=== PATIENT | female | born 1995 | race Caucasian/White ===

== ENCOUNTER → 2018-04-13 11:37 | Outpatient (CLI) | payer OTHER, MEDICAID, SELFPAY ==
--- NOTE | 2018-04-13 | DI.RAD.S_ITS ---
PROCEDURE: XR ELBOW RT MIN 3V INDICATIONS: ELBOW PAIN TECHNIQUE: 3 views of the elbow were acquired. COMPARISON: None. FINDINGS: Bones: No fractures or dislocations. No suspicious bony lesions. Soft tissues: No elbow joint effusion. No suspicious soft tissue calcifications. IMPRESSION: No trauma stones, source of current tenderness is not identified. Dictated by: Harry Marino M.D. on 04/13/2018 at 14:26 Approved by: Harry Marino M.D. on 04/13/2018 at 14:27
== END ==
PROVIDERS: Family Provider Registered Nurse; PCP Registered Nurse; Visit Provider Registered Nurse
DX: M25.521 Pain in right elbow (principal)
CPT/HCPCS: 73080

== ENCOUNTER 2018-08-02 09:23 | Day surgery (SDC) | payer OTHER, MEDICAID, SELFPAY ==
[2018-07-28 11:00] VITALS: BMI 20.7
[2018-08-02] VITALS (8 sets, daily range): BP systolic 103–138; BP diastolic 71–84; PULSE 69–116; RESP 11–16; TEMP 36–36.4; O2SAT 75–100; BMI 20.7
[2018-08-02] MEDS: LACTATED RINGERS 1,000 ML 100 ML IV (09:43)
--- NOTE | 2018-08-02 10:34 | SUR.OPER ---
Lithotomy on padded OR bed, head on pillow, arms secured on padded arm boards at <90 degrees abduction. Legs secured in padded yellow fins stirrups.
--- NOTE | 2018-08-02 11:06 | PM.PREOP ---
Pre-operative Note Interval Note Pre-op Check: Yes History & Physical exam performed today by Physician Changes: No
--- NOTE | 2018-08-02 11:24 | SUR.OPER ---
Lithotomy on padded OR bed. [place] Pad Positioner under torso. Head on pillow, arms padded and tucked at sides. Legs secured in padded yellow fins stirrups.
[2018-08-02] MEDS: ACETAMINOPHEN IV 1,000 MG/100 ML VIAL 400 MG IV (11:30)
[2018-08-02] MEDS: fentaNYL 100 MCG/2 ML INJ 50 MCG IV (11:56)
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
--- NOTE | 2018-08-03 06:21 | PM.GYNOP.1 ---
Operative Date/Time/Diagnoses Date of procedure: 08/02/18 Time of procedure: 12:00 Pre-op diagnosis: Pelvic pain Post-op diagnosis: same Procedure: Procedures Operation Date: 08/02/18 11:00 Actual Procedures Side Surgeon p Laparoscopy w/Poss Fulguration Endometriosis & Poss lysis of adhesions Milagros Smith MD Indications: Persistent pelvic pain Surgeon: Milagros Smith Anesthesia Type: General Operative Notes Findings: 6 week size anteverted uterus Normal tubes and ovaries Normal appendix, gallbladder, and liver Significant pelvic congestion Closure Type: primary Specimen(s): none Estimated blood loss (mL): 10 Blood products transfused: none Procedure in detail: After informed consent was obtained, the patient was taken to the operating room where she was placed in the dorsal supine position. After adequate general endotracheal anesthesia was achieved, she was placed in the dorsal lithotomy position, and prepped and draped in the usual sterile fashion. A time-out was performed. A bivalve speculum was placed into the vagina and the anterior lip of the cervix grasped with a single-tooth tenaculum. The cervical os was sequentially dilated until the Zumi uterine manipulator could pass easily into the endometrial cavity. The single-tooth tenaculum was removed from the anterior lip of the cervix. The bivalve speculum was removed from the vagina. Attention was then turned to the abdomen where 6 cc of 0.5% Marcaine with epinephrine were injected in the umbilical fold. A 5 mm incision was made. The Veress needle was placed into the peritoneal cavity, and its placement confirmed by aspiration and drop test. The abdominal cavity was insufflated with 2.8 L of CO2. The Veress needle was removed. A 5 mm trocar was placed without difficulty. A 2nd trocar was placed to the left of midline after 6 cc of 0.5% Marcaine with epinephrine were injected and a 5 mm incision was made. This was placed under direct visualization. The probe was placed through the lateral trocar and the tubes and ovaries were identified and were normal. The uterus was lifted out of the pelvis. There was significant pelvic congestion especially posteriorly and in both adnexa. The liver, gallbladder, and appendix were examined and were found to be normal. The tubes and ovaries were normal as well. The only significant finding was pelvic congestion. The instruments were removed from the abdomen. The CO2 was allowed to escape. The incisions were closed with 4-O undyed vicryl in a subcuticular fashion. Steri-Strips, 2 x 2, and op sites were placed. The Zumi uterine manipulator was removed from the uterus. Sponge, lap, and instrument counts were correct x2. Patient tolerated the procedure well, and was taken to PACU in stable condition. Complications: none Post-operative Condition: stable Disposition: PACU Plan for aftercare: Home after recovery
== END 2018-08-02 12:53 | disposition home or self-care (01) ==
PROVIDERS: Family Provider Registered Nurse; PCP Registered Nurse; Visit Provider Obstetrics & Gynecology
PROC: 0U5B4ZZ Destruction of Endometrium, Percutaneous Endoscopic Approach (ICD-10-PCS; CPT 58662; principal; 2018-08-02 11:00)
DX: N94.89 Other specified conditions associated with female genital organs and menstrual cycle (principal); N94.6 Dysmenorrhea, unspecified
CPT/HCPCS: 49320; J0131; J1100; J1885; J2250; J2405; J2704; J3010

== ENCOUNTER → 2018-12-28 08:20 | Outpatient (CLI) | payer OTHER, MEDICAID, SELFPAY ==
--- NOTE | 2018-12-28 | DI.US.S_ITS ---
PROCEDURE: US PELVIC COMPLETE INDICATIONS: PELVIC PAIN IN FEMALE TECHNIQUE: Real-time scanning was performed of the pelvic organs, with image documentation. Additional endovaginal scanning was necessary due to incomplete visualization of the adnexal and endometrial structures by transabdominal scanning. COMPARISON: None. FINDINGS: Transabdominal scanning: Limited scanning through the kidneys shows no hydronephrosis. No pathologic free abdominal or pelvic fluid. Endovaginal scanning: Uterus: Uterus is normal in size at 8.2 x 3.8 x 5 point cm. The endometrium measures 4 mm in combined thickness. An intrauterine device is identified within the endometrial cavity and appears appropriately positioned. Ovaries: Unremarkable sonographic appearance of the bilateral ovaries without suspicious mass lesions. Right ovary measures 4.0 x 2.1 x 1.8 cm. Left ovary measures 4.0 x 1.8 x 2.7 cm. IMPRESSION: 1. Unremarkable sonographic evaluation of the pelvis without acute abnormalities. 2. Intrauterine device identified within the endometrial cavity with appropriate positioning. Dictated by: Maco Regan M.D. on 12/28/2018 at 17:40 Approved by: Maco Regan M.D. on 12/28/2018 at 17:43
== END ==
PROVIDERS: Family Provider Registered Nurse; PCP Registered Nurse; Visit Provider Obstetrics & Gynecology
DX: R10.2 Pelvic and perineal pain (principal); Z97.5 Presence of (intrauterine) contraceptive device
CPT/HCPCS: 76830; 76856

== ENCOUNTER 2019-03-25 08:19 | Emergency (ER) | payer OTHER, SELFPAY ==
[2019-03-25 08:23] VITALS: BP 130/85; PULSE 82; RESP 16; TEMP 36.8; O2SAT 100
--- NOTE | 2019-03-25 08:28 | DI.RAD.S_ITS ---
PROCEDURE: XR FOOT LT MIN 3V INDICATIONS: foot injury TECHNIQUE: 3 views of the foot were acquired. COMPARISON: None. FINDINGS: Bones: No fractures or dislocations. No suspicious bony lesions. Soft tissues: No tibiotalar joint effusion. Achilles tendon appears normal. IMPRESSION: No fracture. No osseous lesion. If symptoms and/or clinical suspicion for pathology persists, further assessment with repeat radiographs (7-10 days) or advanced imaging (e.g. CT, MRI or bone scan) may be helpful. Dictated by: Laila Solitario MD, PhD on 03/25/2019 at 8:53 Approved by: Laila Solitario MD, PhD on 03/25/2019 at 8:54
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
[2019-03-25] MEDS: IBUPROFEN 400 MG TABLET 800 MG PO (09:08)
[2019-03-25 09:54] VITALS: BP 104/73; PULSE 76; RESP 16; O2SAT 100
== END 2019-03-25 09:42 | disposition home or self-care (01) ==
PROVIDERS: Emergency Provider Emergency Medicine; Family Provider Registered Nurse; PCP Registered Nurse
DX: S90.32XA Contusion of left foot, initial encounter (principal); V00.818A Other accident with wheelchair (powered), initial encounter; Y99.0 Civilian activity done for income or pay
CPT/HCPCS: 73630; 99282; 99283

== ENCOUNTER → 2019-03-28 07:39 | Outpatient (CLI) | payer OTHER, SELFPAY ==
--- NOTE | 2019-03-28 | DI.MRI.S_ITS ---
PROCEDURE: MR KNEE RT WO CON INDICATIONS: Lateral right knee pain post fall TECHNIQUE: Noncontrast sagittal PD fast spin echo and T2 fast spin echo with fat saturation, sagittal 3-D FLASH with fat saturation; coronal T1 spin echo and PD fast spin echo with fat saturation, and axial PD fast spin echo with fat saturation through the knee. COMPARISON: None. FINDINGS: Image quality: Excellent. Menisci: The medial and lateral menisci demonstrate normal morphology and internal signal. The meniscal root ligaments appear intact. Cruciate ligaments: The anterior and posterior cruciate ligaments appear intact. Medial structures: The medial collateral ligament appears intact. The posterior oblique ligament, semimembranosus tendon insertions, oblique popliteal ligament, and meniscocapsular junction appear intact. Visualized portions of the pes anserinus tendons appear normal. No abnormal bursal fluid. Lateral structures: The lateral collateral ligament, long and short heads of the biceps femoris tendon appear intact. The popliteus tendon appears normal; the popliteofibular ligament appears intact. The posterosuperior and anteroinferior popliteomeniscal fascicles appear intact. The arcuate and fabellofibular ligaments appear intact, on either side of the lateral inferior geniculate artery. Iliotibial band appears normal. Anterior structures: The quadriceps and patellar tendons appear intact. Patellar alignment is normal. No femoral trochlear dysplasia or ventral trochlear prominence. No edema in the infrapatellar fat pad. Bones and cartilage: No bone marrow contusions or fractures. The cartilage of the medial and lateral femorotibial compartments, as well as the patellofemoral compartment, appears normal in thickness. Joint space: There is physiologic knee joint fluid. No Garcia's cyst. Normal appearing synovial plicae are incidentally noted. IMPRESSION: Unremarkable MR examination of right knee. No evidence of internal derangement. Dictated by: Temo Rodriguez M.D. on 03/28/2019 at 9:16 Approved by: Temo Rodriguez M.D. on 03/28/2019 at 9:19
== END ==
PROVIDERS: Family Provider Registered Nurse; PCP Registered Nurse; Visit Provider Registered Nurse
DX: M25.561 Pain in right knee (principal)
CPT/HCPCS: 73721

== ENCOUNTER → 2019-04-05 16:05 | Outpatient (CLI) | payer OTHER, SELFPAY ==
--- NOTE | 2019-04-05 | DI.RAD.S_ITS ---
PROCEDURE: XR FOOT LT MIN 3V INDICATIONS: PAIN IN LEFT FOOT TECHNIQUE: 3 views of the foot were acquired. COMPARISON: [facility], CR, XR FOOT LT MIN 3V, 03/25/2019, 8:40. FINDINGS: Bones: No fractures or dislocations. No suspicious bony lesions. Soft tissues: No tibiotalar joint effusion. Achilles tendon appears normal. IMPRESSION: No fracture. If the patient's symptoms do not improve recommend followup radiographs in 10 days to assess for healing sclerosis/occult injury. Dictated by: Adrian Gabriel M.D. on 04/05/2019 at 17:21 Approved by: Adrian Gabriel M.D. on 04/05/2019 at 17:22
--- NOTE | 2019-04-05 | DI.RAD.S_ITS ---
PROCEDURE: XR ANKLE LT MIN 3V INDICATIONS: PAIN IN LEFT ANKLE TECHNIQUE: 3 views of the ankle were acquired. COMPARISON: None. FINDINGS: Bones: No fractures or dislocations. Ankle mortise is normally aligned. No suspicious bony lesions. Soft tissues: No tibiotalar joint effusion. Achilles tendon appears normal. IMPRESSION: No fracture. If the patient's symptoms do not improve recommend followup radiographs in 10 days to assess for healing sclerosis/occult injury. Dictated by: Adrian Gabriel M.D. on 04/05/2019 at 17:22 Approved by: Adrian Gabriel M.D. on 04/05/2019 at 17:23
== END ==
PROVIDERS: Family Provider Registered Nurse; PCP Registered Nurse; Visit Provider Nurse Practitioner Family
DX: M25.572 Pain in left ankle and joints of left foot (principal); S99.912A Unspecified injury of left ankle, initial encounter
CPT/HCPCS: 73610; 73630

== ENCOUNTER 2019-06-23 08:15 | Outpatient (RCR) | payer OTHER, SELFPAY ==
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
--- NOTE | 2019-05-19 09:09 | PT.OTN ---
Current Diagnoses Pain in left foot (05/19/19) Difficulty in walking, not elsewhere classified (05/19/19) Weakness (05/19/19) Contusion of left foot, initial encounter (05/19/19) Unspecified injury of left ankle, subsequent encounter (05/19/19) Physical Therapy Treatment Note PT-OP-A Visit Information Start: 05/16/19 19:02 Freq: Status: Active Protocol: Document 05/19/19 07:38 [facility] (Rec: 05/19/19 09:09 [facility] [id number]) Out-Patient Physical Therapy Visit Information Visit Information Visit Type Treatment Note Visit Start Time 07:32 Visit Stop Time 08:12 Total Visit Minutes 40 PT-OP-B Current Condition Start: 05/16/19 19:02 Freq: Status: Active Protocol: Document 05/17/19 07:26 [facility] (Rec: 05/17/19 09:03 [facility] [id number]) Current Condition History of Current Condition Onset Date about 6 weeks ago Current Complaints L lat ankle and foot History of Current Condition Pt was sitting in pt's chair and had her foot back and accidently ran over it. Pt reports les pain in the foot and toes. Bruising was present at first but all Xrays showed no breaks. 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 Notes she was on light duty for about 1 week , but has returned to the floor for 2 weeks and it hurts a lot more. Reports by mid shift, she is limping whereas when on light duty she wasn't limping at all. Pt reports she used to run 30-45 min 5 days a week and lifting and workouts w/human resources trainer for 5 days a week. Now she is not doing any legs or cardio at the gym. Pt reports she has twin 4 year olds. She wears an ELLEN wrap daily and tried to go without it yesterday and that inc pain. Pt reports LBP with LLE numbness into post leg and bottom of foot. Pt Prior Treatments and Tests Xrays-no breaks, instructed to keep wrapped and ice Treatment Goals Patient/Caregiver Goals return to working out, being able to work without pain, be able to do all activities with kids PT-OP-C Subjective Start: 05/16/19 19:02 Freq: Status: Active Protocol: Document 05/19/19 07:38 [facility] (Rec: 05/19/19 09:09 [facility] [id number]) OP-PT Subjective Patient Comments Patient Comments Complinace with HEP. No issues with it PT-OP-D Balance Start: 05/16/19 19:02 Freq: Status: Active Protocol: Document 05/17/19 07:26 [facility] (Rec: 05/17/19 09:03 [facility] [id number]) Balance Tests Single Limb Standing Single Limb- Right >30 sec EO, EC 13 sec Single Limb- Left 1 sec EC Tandem Tandem Standing >30 sec B PT-OP-F Manual Assessment Start: 05/16/19 19:02 Freq: Status: Active Protocol: Document 05/17/19 07:26 [facility] (Rec: 05/17/19 09:03 [facility] [id number]) Manual Assessments Soft Tissue Assessment Soft Tissue Mobility Assessment tenderness to palpation in calf, peroneals, ATFL, PTFL, distal fibula, 5th MT Joint Mobility Assessment Joint Mobility Assessment compensated supinated foot position, rearfoot valgus & forefoot valgus PT-OP-G Mobility & Gait Start: 05/16/19 19:02 Freq: Status: Active Protocol: Document 05/17/19 07:26 [facility] (Rec: 05/17/19 09:03 [facility] [id number]) OP Gait Assessment Comments Gait Comments Dec push off and wt acceptance to LLE with dec ankle movement throughout gait PT-OP-J Posture/Palpation/Skin Start: 05/16/19 19:02 Freq: Status: Active Protocol: Document 05/17/19 07:26 [facility] (Rec: 05/17/19 09:03 [facility] [id number]) Posture Evaluation [facility] Postural Classification System Lumbar Protective Mechanism Left AP 0 Lumbar Protective Mechanism Right AP 0 Lumbar Protective Mechanism Left PA 0 Lumbar Protective Mechanism Right PA 0 PT-OP-K Range of Motion Start: 05/16/19 19:02 Freq: Status: Active Protocol: Document 05/17/19 07:26 [facility] (Rec: 05/17/19 09:03 [facility] [id number]) Ankle and Foot Goniometric Range of Motion Ankle and Foot Right Active Ankle/Foot ROM WFL Yes Dorsiflexion with Knee Flexed 12 Dorsiflexion with Knee Extended 4 Left Active Dorsiflexion with Knee Flexed 0 Dorsiflexion with Knee Extended 8 Plantarflexion 40 Inversion 20 Eversion 14 Ankle and Foot ROM Limitations Comments lacking 8 deg to neutral L PT-OP-L Special Tests Start: 05/16/19 19:02 Freq: Status: Active Protocol: Document 05/17/19 07:26 [facility] (Rec: 05/17/19 09:03 [facility] [id number]) Special Tests Foot/Ankle Special Tests Talor Tilt Test Results positive pain L Anterior Draw Test Results positive L PT-OP-M Strength Start: 05/16/19 19:02 Freq: Status: Active Protocol: Document 05/17/19 07:26 [facility] (Rec: 05/17/19 09:03 [facility] [id number]) Hip Strength Hip Manual Muscle Testing Left Flexion (L2) 4- Good- Extension (S1) 4- Good- Abduction 3+ Fair+ External Rotation 4 Good Internal Rotation 4 Good Right Flexion (L2) 4 Good Extension (S1) 4+ Good+ Abduction 4+ Good+ External Rotation 4+ Good+ Internal Rotation 4 Good Knee Strength Knee Manual Muscle Testing Right Flexion (S2) 4+ Good+ Extension (L3) 5 Normal Left Flexion (S2) 4- Good- Extension (L3) 4+ Good+ Ankle/Foot Strength Ankle and Foot Manual Muscle Testing Right Dorsiflexion (L4) 5 Normal Plantarflexion (S1) 5 Normal Inversion 5 Normal Eversion (S1) 5 Normal Left Dorsiflexion (L4) 3+ Fair+ Plantarflexion (S1) 3 Fair Inversion 3 Fair Eversion (S1) 3+ Fair+ PT-OP-Q Treatments Start: 05/16/19 19:02 Freq: Status: Active Protocol: Document 05/19/19 07:38 [facility] (Rec: 05/19/19 09:09 [facility] [id number]) Cardio Equipment Recumbent Bicycle Duration (Minutes) 6 Resistance 3 Seat Position 3 Gym Equipment Cable Column (Body Solid) Hip Adduction Resistance 4 Reps/Time 2x12 Hip Abduction Resistance 4 Reps/Time 2x12 Shuttle Recovery Bilateral Squats Resistance 50# Shuttle Recovery Platform Stable Reps/Time 2x10 Manual Therapy Treatment Soft Tissue Mobilization gastroc Body Location med and lat Mobilization Type Rolling Intensity/Depth Moderate peroneals Body Location L Mobilization Type Rolling Intensity/Depth Moderate tib ant Body Location L Mobilization Type Rolling Joint Mobilizations calcaneus Joint L Direction distraction PT-OP-T Assessment and Plan Start: 05/16/19 19:02 Freq: Status: Active Protocol: Document 05/19/19 07:38 [facility] (Rec: 05/19/19 09:09 [facility] [id number]) Physical Therapy Assessment Goals activity Short Term Goal (STG) Pt will be able to return to work on full duty without increased pain. STG Duration 06/24/19 Speedboat Driver Goal (LTG) Pt will be able to return to working out and running without increased pain. LTG Duration 07/17/19 balance Speedboat Driver Goal (LTG) Pt will be able to stand on LLE for 30 sec to show improved balance and stability . LTG Duration 07/17/19 ROM Short Term Goal (STG) Pt will have full AROM of L ankle in order to allow full movements needed for typical ADLs and gait. STG Duration 06/16/19 Retirement Goal (LTG) Pt will be able to ambulate with good motion of ankle in order to have gait without significant deviations. LTG Duration 07/17/19 strength Short Term Goal (STG) Pt will be indep with HEP STG Duration 06/16/19 Retirement Goal (LTG) Pt will have 5/5 in BLE & 4/5 LPM in order to allow her to complete her typical duties like pushing and pulling and lifting at her job without pain. LTG Duration 07/17/19 Assessment Summary Assessment Discussed getting supportive brace for work and daily stability d/t pt feeling unstable. Pt was able to tolerate all gym equipment without c/o pain. Physical Therapy Plan Frequency and Duration Frequency of Treatment 2x/Week Duration of Treatment 2 months Plan of Care Start Date 05/17/19 Plan of Care End Date 07/17/19 Next Visit Focus/Plan Next Note Type Treatment Note Next Visit Plan discuss aquatic, cont to work on gentle joint mobs & soft tissue work, possible laser treatment, work on overall LE strengthening
--- NOTE | 2019-05-26 15:17 | PT.OTN ---
Current Diagnoses Pain in left foot (05/26/19) Difficulty in walking, not elsewhere classified (05/26/19) Weakness (05/26/19) Contusion of left foot, initial encounter (05/26/19) Unspecified injury of left ankle, subsequent encounter (05/26/19) Physical Therapy Treatment Note PT-OP-A Visit Information Start: 05/16/19 19:02 Freq: Status: Active Protocol: Document 05/26/19 14:36 [facility] (Rec: 05/26/19 15:17 [facility] [id number]) Out-Patient Physical Therapy Visit Information Visit Information Visit Type Treatment Note Visit Start Time 16:32 Visit Stop Time 17:12 Total Visit Minutes 40 Visit Number 3 Number of MUSIC LIBRARY ASSISTANT Visits 0 PT-OP-B Current Condition Start: 05/16/19 19:02 Freq: Status: Active Protocol: Document 05/17/19 07:26 [facility] (Rec: 05/17/19 09:03 [facility] [id number]) Current Condition History of Current Condition Onset Date about 6 weeks ago Current Complaints L lat ankle and foot History of Current Condition Pt was sitting in pt's chair and had her foot back and accidently ran over it. Pt reports les pain in the foot and toes. Bruising was present at first but all Xrays showed no breaks. 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 Notes she was on light duty for about 1 week , but has returned to the floor for 2 weeks and it hurts a lot more. Reports by mid shift, she is limping whereas when on light duty she wasn't limping at all. Pt reports she used to run 30-45 min 5 days a week and lifting and workouts w/household personal assistant for 5 days a week. Now she is not doing any legs or cardio at the gym. Pt reports she has twin 4 year olds. She wears an ELLEN wrap daily and tried to go without it yesterday and that inc pain. Pt reports LBP with LLE numbness into post leg and bottom of foot. Pt Prior Treatments and Tests Xrays-no breaks, instructed to keep wrapped and ice Treatment Goals Patient/Caregiver Goals return to working out, being able to work without pain, be able to do all activities with kids PT-OP-C Subjective Start: 05/16/19 19:02 Freq: Status: Active Protocol: Document 05/26/19 14:36 [facility] (Rec: 05/26/19 15:17 [facility] [id number]) OP-PT Subjective Patient Comments Patient Comments Pt reports swelling in ankle after last session. She got a stabilization brace but wants to make sure she is using it well. Tues appt was missed d/t son having to go to doctors for migrane. PT-OP-D Balance Start: 05/16/19 19:02 Freq: Status: Active Protocol: Document 05/17/19 07:26 [facility] (Rec: 05/17/19 09:03 [facility] [id number]) Balance Tests Single Limb Standing Single Limb- Right >30 sec EO, EC 13 sec Single Limb- Left 1 sec EC Tandem Tandem Standing >30 sec B PT-OP-F Manual Assessment Start: 05/16/19 19:02 Freq: Status: Active Protocol: Document 05/17/19 07:26 [facility] (Rec: 05/17/19 09:03 [facility] [id number]) Manual Assessments Soft Tissue Assessment Soft Tissue Mobility Assessment tenderness to palpation in calf, peroneals, ATFL, PTFL, distal fibula, 5th MT Joint Mobility Assessment Joint Mobility Assessment compensated supinated foot position, rearfoot valgus & forefoot valgus PT-OP-G Mobility & Gait Start: 05/16/19 19:02 Freq: Status: Active Protocol: Document 05/17/19 07:26 [facility] (Rec: 05/17/19 09:03 [facility] [id number]) OP Gait Assessment Comments Gait Comments Dec push off and wt acceptance to LLE with dec ankle movement throughout gait PT-OP-J Posture/Palpation/Skin Start: 05/16/19 19:02 Freq: Status: Active Protocol: Document 05/17/19 07:26 [facility] (Rec: 05/17/19 09:03 [facility] [id number]) Posture Evaluation Fam Postural Classification System Lumbar Protective Mechanism Left AP 0 Lumbar Protective Mechanism Right AP 0 Lumbar Protective Mechanism Left PA 0 Lumbar Protective Mechanism Right PA 0 PT-OP-K Range of Motion Start: 05/16/19 19:02 Freq: Status: Active Protocol: Document 05/17/19 07:26 [facility] (Rec: 05/17/19 09:03 [facility] [id number]) Ankle and Foot Goniometric Range of Motion Ankle and Foot Right Active Ankle/Foot ROM WFL Yes Dorsiflexion with Knee Flexed 12 Dorsiflexion with Knee Extended 4 Left Active Dorsiflexion with Knee Flexed 0 Dorsiflexion with Knee Extended 8 Plantarflexion 40 Inversion 20 Eversion 14 Ankle and Foot ROM Limitations Comments lacking 8 deg to neutral L PT-OP-L Special Tests Start: 05/16/19 19:02 Freq: Status: Active Protocol: Document 05/17/19 07:26 [facility] (Rec: 05/17/19 09:03 [facility] [id number]) Special Tests Foot/Ankle Special Tests Talor Tilt Test Results positive pain L Anterior Draw Test Results positive L PT-OP-M Strength Start: 05/16/19 19:02 Freq: Status: Active Protocol: Document 05/17/19 07:26 [facility] (Rec: 05/17/19 09:03 [facility] [id number]) Hip Strength Hip Manual Muscle Testing Left Flexion (L2) 4- Good- Extension (S1) 4- Good- Abduction 3+ Fair+ External Rotation 4 Good Internal Rotation 4 Good Right Flexion (L2) 4 Good Extension (S1) 4+ Good+ Abduction 4+ Good+ External Rotation 4+ Good+ Internal Rotation 4 Good Knee Strength Knee Manual Muscle Testing Right Flexion (S2) 4+ Good+ Extension (L3) 5 Normal Left Flexion (S2) 4- Good- Extension (L3) 4+ Good+ Ankle/Foot Strength Ankle and Foot Manual Muscle Testing Right Dorsiflexion (L4) 5 Normal Plantarflexion (S1) 5 Normal Inversion 5 Normal Eversion (S1) 5 Normal Left Dorsiflexion (L4) 3+ Fair+ Plantarflexion (S1) 3 Fair Inversion 3 Fair Eversion (S1) 3+ Fair+ PT-OP-Q Treatments Start: 05/16/19 19:02 Freq: Status: Active Protocol: Document 05/26/19 14:36 [facility] (Rec: 05/26/19 15:17 [facility] [id number]) Cardio Equipment Bicycle (Upright) Duration (Minutes) 5 Resistance 3 Seat Position 4 Therapeutic Exercises Sitting Exercises PF Sitting Exercise Name long sit Side left Equipment Used L1 Reps/Minutes 15 AROM Sitting Exercise Name BAPs DF/PF, inversion/eversion Reps/Minutes 10 ea Manual Therapy Treatment Soft Tissue Mobilization gastroc Body Location med and lat & into achilles tendon Mobilization Type Rolling Intensity/Depth Moderate peroneals Body Location L Mobilization Type Rolling Intensity/Depth Moderate Joint Mobilizations TF jt Joint distal Direction AP fib Grade II talus Joint L Direction distraction Grade II calcaneus Joint L Direction distraction Grade II Self-Care/Home Management Treatment Education Other Education brace use and how to put on PT-OP-T Assessment and Plan Start: 05/16/19 19:02 Freq: Status: Active Protocol: Document 05/26/19 14:36 [facility] (Rec: 05/26/19 15:17 [facility] [id number]) Physical Therapy Assessment Goals activity Short Term Goal (STG) Pt will be able to return to work on full duty without increased pain. STG Duration 06/24/19 Prison Goal (LTG) Pt will be able to return to working out and running without increased pain. LTG Duration 07/17/19 balance Prison Goal (LTG) Pt will be able to stand on LLE for 30 sec to show improved balance and stability . LTG Duration 07/17/19 ROM Short Term Goal (STG) Pt will have full AROM of L ankle in order to allow full movements needed for typical ADLs and gait. STG Duration 06/16/19 Prison Goal (LTG) Pt will be able to ambulate with good motion of ankle in order to have gait without significant deviations. LTG Duration 07/17/19 strength Short Term Goal (STG) Pt will be indep with HEP STG Duration 06/16/19 Devulcanizer Tender Goal (LTG) Pt will have 5/5 in BLE & 4/5 LPM in order to allow her to complete her typical duties like pushing and pulling and lifting at her job without pain. LTG Duration 07/17/19 Assessment Summary Assessment Pt is gradually increasing in ROM, but still has pain with end range DF, inversion & eversion. She was able to start gentle PF strengthening without inc pain. All manual treatment done without inc pain. Physical Therapy Plan Frequency and Duration Frequency of Treatment 2x/Week Duration of Treatment 2 months Plan of Care Start Date 05/17/19 Plan of Care End Date 07/17/19 Next Visit Focus/Plan Next Note Type Treatment Note Next Visit Plan cont to work on gentle joint mobs & soft tissue work, possible laser treatment, work on overall LE strengthening
--- NOTE | 2019-05-31 08:56 | PT.OTN ---
Current Diagnoses Pain in left foot (05/31/19) Difficulty in walking, not elsewhere classified (05/31/19) Weakness (05/31/19) Contusion of left foot, initial encounter (05/31/19) Unspecified injury of left ankle, subsequent encounter (05/31/19) Physical Therapy Treatment Note PT-OP-A Visit Information Start: 05/16/19 19:02 Freq: Status: Active Protocol: Document 05/31/19 08:17 [facility] (Rec: 05/31/19 08:56 [facility] [id number]) Out-Patient Physical Therapy Visit Information Visit Information Visit Type Treatment Note Visit Start Time 08:15 Visit Stop Time 08:56 Total Visit Minutes 41 Visit Number 12/03 Number of PHARMACY BENEFITS COORDINATOR Visits 0 PT-OP-B Current Condition Start: 05/16/19 19:02 Freq: Status: Active Protocol: Document 05/17/19 07:26 [facility] (Rec: 05/17/19 09:03 [facility] [id number]) Current Condition History of Current Condition Onset Date about 6 weeks ago Current Complaints L lat ankle and foot History of Current Condition Pt was sitting in pt's chair and had her foot back and accidently ran over it. Pt reports les pain in the foot and toes. Bruising was present at first but all Xrays showed no breaks. 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 Notes she was on light duty for about 1 week , but has returned to the floor for 2 weeks and it hurts a lot more. Reports by mid shift, she is limping whereas when on light duty she wasn't limping at all. Pt reports she used to run 30-45 min 5 days a week and lifting and workouts w/personal development mentor for 5 days a week. Now she is not doing any legs or cardio at the gym. Pt reports she has twin 4 year olds. She wears an ELLEN wrap daily and tried to go without it yesterday and that inc pain. Pt reports LBP with LLE numbness into post leg and bottom of foot. Pt Prior Treatments and Tests Xrays-no breaks, instructed to keep wrapped and ice Treatment Goals Patient/Caregiver Goals return to working out, being able to work without pain, be able to do all activities with kids PT-OP-C Subjective Start: 05/16/19 19:02 Freq: Status: Active Protocol: Document 05/31/19 08:17 [facility] (Rec: 05/31/19 08:56 [facility] [id number]) OP-PT Subjective Patient Comments Patient Comments Pt reports she is improving with her ROM. She sees her MD tomorrow. She was able to do the leg press at the gym. Patient Reported Progress Improving PT-OP-D Balance Start: 05/16/19 19:02 Freq: Status: Active Protocol: Document 05/17/19 07:26 [facility] (Rec: 05/17/19 09:03 [facility] [id number]) Balance Tests Single Limb Standing Single Limb- Right >30 sec EO, EC 13 sec Single Limb- Left 1 sec EC Tandem Tandem Standing >30 sec B PT-OP-F Manual Assessment Start: 05/16/19 19:02 Freq: Status: Active Protocol: Document 05/17/19 07:26 [facility] (Rec: 05/17/19 09:03 [facility] [id number]) Manual Assessments Soft Tissue Assessment Soft Tissue Mobility Assessment tenderness to palpation in calf, peroneals, ATFL, PTFL, distal fibula, 5th MT Joint Mobility Assessment Joint Mobility Assessment compensated supinated foot position, rearfoot valgus & forefoot valgus PT-OP-G Mobility & Gait Start: 05/16/19 19:02 Freq: Status: Active Protocol: Document 05/17/19 07:26 [facility] (Rec: 05/17/19 09:03 [facility] [id number]) OP Gait Assessment Comments Gait Comments Dec push off and wt acceptance to LLE with dec ankle movement throughout gait PT-OP-J Posture/Palpation/Skin Start: 05/16/19 19:02 Freq: Status: Active Protocol: Document 05/17/19 07:26 [facility] (Rec: 05/17/19 09:03 [facility] [id number]) Posture Evaluation Fam Postural Classification System Lumbar Protective Mechanism Left AP 0 Lumbar Protective Mechanism Right AP 0 Lumbar Protective Mechanism Left PA 0 Lumbar Protective Mechanism Right PA 0 PT-OP-K Range of Motion Start: 05/16/19 19:02 Freq: Status: Active Protocol: Document 05/17/19 07:26 [facility] (Rec: 05/17/19 09:03 [facility] [id number]) Ankle and Foot Goniometric Range of Motion Ankle and Foot Right Active Ankle/Foot ROM WFL Yes Dorsiflexion with Knee Flexed 12 Dorsiflexion with Knee Extended 4 Left Active Dorsiflexion with Knee Flexed 0 Dorsiflexion with Knee Extended 8 Plantarflexion 40 Inversion 20 Eversion 14 Ankle and Foot ROM Limitations Comments lacking 8 deg to neutral L PT-OP-L Special Tests Start: 05/16/19 19:02 Freq: Status: Active Protocol: Document 05/17/19 07:26 [facility] (Rec: 05/17/19 09:03 [facility] [id number]) Special Tests Foot/Ankle Special Tests Talor Tilt Test Results positive pain L Anterior Draw Test Results positive L PT-OP-M Strength Start: 05/16/19 19:02 Freq: Status: Active Protocol: Document 05/17/19 07:26 [facility] (Rec: 05/17/19 09:03 [facility] [id number]) Hip Strength Hip Manual Muscle Testing Left Flexion (L2) 4- Good- Extension (S1) 4- Good- Abduction 3+ Fair+ External Rotation 4 Good Internal Rotation 4 Good Right Flexion (L2) 4 Good Extension (S1) 4+ Good+ Abduction 4+ Good+ External Rotation 4+ Good+ Internal Rotation 4 Good Knee Strength Knee Manual Muscle Testing Right Flexion (S2) 4+ Good+ Extension (L3) 5 Normal Left Flexion (S2) 4- Good- Extension (L3) 4+ Good+ Ankle/Foot Strength Ankle and Foot Manual Muscle Testing Right Dorsiflexion (L4) 5 Normal Plantarflexion (S1) 5 Normal Inversion 5 Normal Eversion (S1) 5 Normal Left Dorsiflexion (L4) 3+ Fair+ Plantarflexion (S1) 3 Fair Inversion 3 Fair Eversion (S1) 3+ Fair+ PT-OP-Q Treatments Start: 05/16/19 19:02 Freq: Status: Active Protocol: Document 05/31/19 08:17 [facility] (Rec: 05/31/19 08:56 [facility] [id number]) Cardio Equipment Bicycle (Upright) Duration (Minutes) 5 Resistance 3 Seat Position 4 Therapeutic Exercises Sitting Exercises eversion Sitting Exercise Name long sit Side left Equipment Used L1 Reps/Minutes 10x2 AROM Sitting Exercise Name BAPs DF/PF, inversion/eversion Reps/Minutes 10 ea Standing Exercises hip Standing Exercise Name abd, ext Side bilateral Equipment Used L1 Reps/Minutes 2x10 ea B Manual Therapy Treatment Soft Tissue Mobilization gastroc Body Location med and lat & into achilles tendon Mobilization Type Rolling Intensity/Depth Moderate peroneals Body Location L Mobilization Type Rolling Intensity/Depth Moderate Joint Mobilizations talus Joint L Direction distraction, AP Grade II calcaneus Joint L Direction distraction, lat gapping Grade II Neuro Re-Education Treatment Balance Activities tandem stance Surface firm Reps/Duration B Comments EC, then head turns PT-OP-T Assessment and Plan Start: 05/16/19 19:02 Freq: Status: Active Protocol: Document 05/31/19 08:17 [facility] (Rec: 05/31/19 08:56 [facility] [id number]) Physical Therapy Assessment Goals activity Short Term Goal (STG) Pt will be able to return to work on full duty without increased pain. STG Duration 06/24/19 Prison Goal (LTG) Pt will be able to return to working out and running without increased pain. LTG Duration 07/17/19 balance English Language Learner Tutor Goal (LTG) Pt will be able to stand on LLE for 30 sec to show improved balance and stability . LTG Duration 07/17/19 ROM Short Term Goal (STG) Pt will have full AROM of L ankle in order to allow full movements needed for typical ADLs and gait. STG Duration 06/16/19 English Language Learner Tutor Goal (LTG) Pt will be able to ambulate with good motion of ankle in order to have gait without significant deviations. LTG Duration 07/17/19 strength Short Term Goal (STG) Pt will be indep with HEP STG Duration 06/16/19 Prison Goal (LTG) Pt will have 5/5 in BLE & 4/5 LPM in order to allow her to complete her typical duties like pushing and pulling and lifting at her job without pain. LTG Duration 07/17/19 Assessment Summary Assessment Pt was able to tolerate doing standing strengthening and balance exercises today without inc in pain. She is improving with ROM but still has pain with end range inversion & DF. Physical Therapy Plan Frequency and Duration Frequency of Treatment 2x/Week Duration of Treatment 2 months Plan of Care Start Date 05/17/19 Plan of Care End Date 07/17/19 Next Visit Focus/Plan Next Note Type Treatment Note Next Visit Plan cont to work on gentle joint mobs & soft tissue work, possible laser treatment, work on overall LE strengthening
--- NOTE | 2019-06-02 09:00 | PT.OTN ---
Current Diagnoses Pain in left foot (06/02/19) Difficulty in walking, not elsewhere classified (06/02/19) Weakness (06/02/19) Contusion of left foot, initial encounter (06/02/19) Unspecified injury of left ankle, subsequent encounter (06/02/19) Physical Therapy Treatment Note PT-OP-A Visit Information Start: 05/16/19 19:02 Freq: Status: Active Protocol: Document 06/02/19 08:19 [facility] (Rec: 06/02/19 08:58 [facility] [id number]) Out-Patient Physical Therapy Visit Information Visit Information Visit Type Treatment Note Visit Start Time 08:16 Visit Stop Time 09:04 Total Visit Minutes 48 Visit Number 01/02 Number of NEWSWRITER Visits 0 PT-OP-B Current Condition Start: 05/16/19 19:02 Freq: Status: Active Protocol: Document 05/17/19 07:26 [facility] (Rec: 05/17/19 09:03 [facility] [id number]) Current Condition History of Current Condition Onset Date about 6 weeks ago Current Complaints L lat ankle and foot History of Current Condition Pt was sitting in pt's chair and had her foot back and accidently ran over it. Pt reports les pain in the foot and toes. Bruising was present at first but all Xrays showed no breaks. 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 Notes she was on light duty for about 1 week , but has returned to the floor for 2 weeks and it hurts a lot more. Reports by mid shift, she is limping whereas when on light duty she wasn't limping at all. Pt reports she used to run 30-45 min 5 days a week and lifting and workouts w/appraiser personal property for 5 days a week. Now she is not doing any legs or cardio at the gym. Pt reports she has twin 4 year olds. She wears an ELLEN wrap daily and tried to go without it yesterday and that inc pain. Pt reports LBP with LLE numbness into post leg and bottom of foot. Pt Prior Treatments and Tests Xrays-no breaks, instructed to keep wrapped and ice Treatment Goals Patient/Caregiver Goals return to working out, being able to work without pain, be able to do all activities with kids PT-OP-C Subjective Start: 05/16/19 19:02 Freq: Status: Active Protocol: Document 06/02/19 08:19 [facility] (Rec: 06/02/19 08:58 [facility] [id number]) OP-PT Subjective Patient Comments Patient Comments Pt reports she saw the MD who put her on modified duty. Notes MD ordered MRI. PT-OP-D Balance Start: 05/16/19 19:02 Freq: Status: Active Protocol: Document 05/17/19 07:26 [facility] (Rec: 05/17/19 09:03 [facility] [id number]) Balance Tests Single Limb Standing Single Limb- Right >30 sec EO, EC 13 sec Single Limb- Left 1 sec EC Tandem Tandem Standing >30 sec B PT-OP-F Manual Assessment Start: 05/16/19 19:02 Freq: Status: Active Protocol: Document 05/17/19 07:26 [facility] (Rec: 05/17/19 09:03 [facility] [id number]) Manual Assessments Soft Tissue Assessment Soft Tissue Mobility Assessment tenderness to palpation in calf, peroneals, ATFL, PTFL, distal fibula, 5th MT Joint Mobility Assessment Joint Mobility Assessment compensated supinated foot position, rearfoot valgus & forefoot valgus PT-OP-G Mobility & Gait Start: 05/16/19 19:02 Freq: Status: Active Protocol: Document 05/17/19 07:26 [facility] (Rec: 05/17/19 09:03 [facility] [id number]) OP Gait Assessment Comments Gait Comments Dec push off and wt acceptance to LLE with dec ankle movement throughout gait PT-OP-J Posture/Palpation/Skin Start: 05/16/19 19:02 Freq: Status: Active Protocol: Document 05/17/19 07:26 [facility] (Rec: 05/17/19 09:03 [facility] [id number]) Posture Evaluation [facility] Postural Classification System Lumbar Protective Mechanism Left AP 0 Lumbar Protective Mechanism Right AP 0 Lumbar Protective Mechanism Left PA 0 Lumbar Protective Mechanism Right PA 0 PT-OP-K Range of Motion Start: 05/16/19 19:02 Freq: Status: Active Protocol: Document 05/17/19 07:26 [facility] (Rec: 05/17/19 09:03 [facility] [id number]) Ankle and Foot Goniometric Range of Motion Ankle and Foot Right Active Ankle/Foot ROM WFL Yes Dorsiflexion with Knee Flexed 12 Dorsiflexion with Knee Extended 4 Left Active Dorsiflexion with Knee Flexed 0 Dorsiflexion with Knee Extended 8 Plantarflexion 40 Inversion 20 Eversion 14 Ankle and Foot ROM Limitations Comments lacking 8 deg to neutral L PT-OP-L Special Tests Start: 05/16/19 19:02 Freq: Status: Active Protocol: Document 05/17/19 07:26 [facility] (Rec: 05/17/19 09:03 [facility] [id number]) Special Tests Foot/Ankle Special Tests Talor Tilt Test Results positive pain L Anterior Draw Test Results positive L PT-OP-M Strength Start: 05/16/19 19:02 Freq: Status: Active Protocol: Document 05/17/19 07:26 [facility] (Rec: 05/17/19 09:03 [facility] [id number]) Hip Strength Hip Manual Muscle Testing Left Flexion (L2) 4- Good- Extension (S1) 4- Good- Abduction 3+ Fair+ External Rotation 4 Good Internal Rotation 4 Good Right Flexion (L2) 4 Good Extension (S1) 4+ Good+ Abduction 4+ Good+ External Rotation 4+ Good+ Internal Rotation 4 Good Knee Strength Knee Manual Muscle Testing Right Flexion (S2) 4+ Good+ Extension (L3) 5 Normal Left Flexion (S2) 4- Good- Extension (L3) 4+ Good+ Ankle/Foot Strength Ankle and Foot Manual Muscle Testing Right Dorsiflexion (L4) 5 Normal Plantarflexion (S1) 5 Normal Inversion 5 Normal Eversion (S1) 5 Normal Left Dorsiflexion (L4) 3+ Fair+ Plantarflexion (S1) 3 Fair Inversion 3 Fair Eversion (S1) 3+ Fair+ PT-OP-Q Treatments Start: 05/16/19 19:02 Freq: Status: Active Protocol: Document 06/02/19 08:19 [facility] (Rec: 06/02/19 08:58 [facility] [id number]) Cardio Equipment Bicycle (Upright) Duration (Minutes) 5 Resistance 3 Seat Position 4 Gym Equipment Shuttle Balance blue clips Details WBOS, NBOS, staggered stance Comments EO & EC; fwd & side Therapeutic Exercises Sitting Exercises eversion Sitting Exercise Name long sit inversion & eversion Side left Equipment Used L1 Reps/Minutes 15 ea PF Sitting Exercise Name long sit PF & DF Side left Equipment Used L1 Reps/Minutes 15 AROM Sitting Exercise Name wobble board DF/PF, inversion/ eversion Reps/Minutes 15 ea Standing Exercises hip Standing Exercise Name abd, ext Side bilateral Equipment Used L1 Reps/Minutes 2x10 ea B Manual Therapy Treatment Soft Tissue Mobilization gastroc Body Location med and lat & into achilles tendon Mobilization Type Rolling Intensity/Depth Moderate peroneals Body Location L Mobilization Type Rolling Intensity/Depth Moderate Manual Techniques ROM Type gentle passive stretching inversion, eversion, PF, DF PT-OP-R Modalities Start: 05/16/19 19:02 Freq: Status: Active Protocol: Document 06/02/19 08:19 [facility] (Rec: 06/02/19 08:59 [facility] [id number]) Hot Pack/Cold Pack Treatment Cold Pack Location L ankle Patient Position Hooklying Treatment Duration (minutes) 10 PT-OP-T Assessment and Plan Start: 05/16/19 19:02 Freq: Status: Active Protocol: Document 06/02/19 08:19 [facility] (Rec: 06/02/19 08:58 [facility] [id number]) Physical Therapy Assessment Goals activity Short Term Goal (STG) Pt will be able to return to work on full duty without increased pain. STG Duration 06/24/19 Factory Helper Goal (LTG) Pt will be able to return to working out and running without increased pain. LTG Duration 07/17/19 balance [facility] Goal (LTG) Pt will be able to stand on LLE for 30 sec to show improved balance and stability . LTG Duration 07/17/19 ROM Short Term Goal (STG) Pt will have full AROM of L ankle in order to allow full movements needed for typical ADLs and gait. STG Duration 06/16/19 [facility] Goal (LTG) Pt will be able to ambulate with good motion of ankle in order to have gait without significant deviations. LTG Duration 07/17/19 strength Short Term Goal (STG) Pt will be indep with HEP STG Duration 06/16/19 Factory Helper Goal (LTG) Pt will have 5/5 in BLE & 4/5 LPM in order to allow her to complete her typical duties like pushing and pulling and lifting at her job without pain. LTG Duration 07/17/19 Assessment Summary Assessment Pt did well with strengthening exercises iwth min cueing. Reported some foot pain with shuttle balance so stopped. She was able to tolerate all motions with resistance. Physical Therapy Plan Frequency and Duration Frequency of Treatment 2x/Week Duration of Treatment 2 months Plan of Care Start Date 05/17/19 Plan of Care End Date 07/17/19 Next Visit Focus/Plan Next Note Type Treatment Note Next Visit Plan cont to work on gentle joint mobs & soft tissue work, possible laser or US treatment , work on overall LE strengthening
--- NOTE | 2019-06-07 09:32 | PT.OTN ---
Current Diagnoses Pain in left foot (06/07/19) Difficulty in walking, not elsewhere classified (06/07/19) Weakness (06/07/19) Contusion of left foot, initial encounter (06/07/19) Unspecified injury of left ankle, subsequent encounter (06/07/19) Physical Therapy Treatment Note PT-OP-A Visit Information Start: 05/16/19 19:02 Freq: Status: Active Protocol: Document 06/07/19 08:34 [facility] (Rec: 06/07/19 09:32 [facility] [id number]) Out-Patient Physical Therapy Visit Information Visit Information Visit Type Treatment Note Visit Start Time 08:23 Visit Stop Time 09:01 Total Visit Minutes 38 Visit Number 02/02 Number of RECOVERY ENGINEER Visits 0 PT-OP-B Current Condition Start: 05/16/19 19:02 Freq: Status: Active Protocol: Document 05/17/19 07:26 [facility] (Rec: 05/17/19 09:03 [facility] [id number]) Current Condition History of Current Condition Onset Date about 6 weeks ago Current Complaints L lat ankle and foot History of Current Condition Pt was sitting in pt's chair and had her foot back and accidently ran over it. Pt reports les pain in the foot and toes. Bruising was present at first but all Xrays showed no breaks. 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 Notes she was on light duty for about 1 week , but has returned to the floor for 2 weeks and it hurts a lot more. Reports by mid shift, she is limping whereas when on light duty she wasn't limping at all. Pt reports she used to run 30-45 min 5 days a week and lifting and workouts w/business trainer for 5 days a week. Now she is not doing any legs or cardio at the gym. Pt reports she has twin 4 year olds. She wears an ELLEN wrap daily and tried to go without it yesterday and that inc pain. Pt reports LBP with LLE numbness into post leg and bottom of foot. Pt Prior Treatments and Tests Xrays-no breaks, instructed to keep wrapped and ice Treatment Goals Patient/Caregiver Goals return to working out, being able to work without pain, be able to do all activities with kids PT-OP-C Subjective Start: 05/16/19 19:02 Freq: Status: Active Protocol: Document 06/07/19 08:34 [facility] (Rec: 06/07/19 09:32 [facility] [id number]) OP-PT Subjective Patient Comments Patient Comments Pt reports feeling okay after last session. Notes she has not heard re: MRI approval. PT-OP-D Balance Start: 05/16/19 19:02 Freq: Status: Active Protocol: Document 05/17/19 07:26 [facility] (Rec: 05/17/19 09:03 [facility] [id number]) Balance Tests Single Limb Standing Single Limb- Right >30 sec EO, EC 13 sec Single Limb- Left 1 sec EC Tandem Tandem Standing >30 sec B PT-OP-F Manual Assessment Start: 05/16/19 19:02 Freq: Status: Active Protocol: Document 05/17/19 07:26 [facility] (Rec: 05/17/19 09:03 [facility] [id number]) Manual Assessments Soft Tissue Assessment Soft Tissue Mobility Assessment tenderness to palpation in calf, peroneals, ATFL, PTFL, distal fibula, 5th MT Joint Mobility Assessment Joint Mobility Assessment compensated supinated foot position, rearfoot valgus & forefoot valgus PT-OP-G Mobility & Gait Start: 05/16/19 19:02 Freq: Status: Active Protocol: Document 05/17/19 07:26 [facility] (Rec: 05/17/19 09:03 [facility] [id number]) OP Gait Assessment Comments Gait Comments Dec push off and wt acceptance to LLE with dec ankle movement throughout gait PT-OP-J Posture/Palpation/Skin Start: 05/16/19 19:02 Freq: Status: Active Protocol: Document 05/17/19 07:26 [facility] (Rec: 05/17/19 09:03 [facility] [id number]) Posture Evaluation [facility] Postural Classification System Lumbar Protective Mechanism Left AP 0 Lumbar Protective Mechanism Right AP 0 Lumbar Protective Mechanism Left PA 0 Lumbar Protective Mechanism Right PA 0 PT-OP-K Range of Motion Start: 05/16/19 19:02 Freq: Status: Active Protocol: Document 05/17/19 07:26 [facility] (Rec: 05/17/19 09:03 [facility] [id number]) Ankle and Foot Goniometric Range of Motion Ankle and Foot Right Active Ankle/Foot ROM WFL Yes Dorsiflexion with Knee Flexed 12 Dorsiflexion with Knee Extended 4 Left Active Dorsiflexion with Knee Flexed 0 Dorsiflexion with Knee Extended 8 Plantarflexion 40 Inversion 20 Eversion 14 Ankle and Foot ROM Limitations Comments lacking 8 deg to neutral L PT-OP-L Special Tests Start: 05/16/19 19:02 Freq: Status: Active Protocol: Document 05/17/19 07:26 [facility] (Rec: 05/17/19 09:03 [facility] [id number]) Special Tests Foot/Ankle Special Tests Talor Tilt Test Results positive pain L Anterior Draw Test Results positive L PT-OP-M Strength Start: 05/16/19 19:02 Freq: Status: Active Protocol: Document 05/17/19 07:26 [facility] (Rec: 05/17/19 09:03 [facility] [id number]) Hip Strength Hip Manual Muscle Testing Left Flexion (L2) 4- Good- Extension (S1) 4- Good- Abduction 3+ Fair+ External Rotation 4 Good Internal Rotation 4 Good Right Flexion (L2) 4 Good Extension (S1) 4+ Good+ Abduction 4+ Good+ External Rotation 4+ Good+ Internal Rotation 4 Good Knee Strength Knee Manual Muscle Testing Right Flexion (S2) 4+ Good+ Extension (L3) 5 Normal Left Flexion (S2) 4- Good- Extension (L3) 4+ Good+ Ankle/Foot Strength Ankle and Foot Manual Muscle Testing Right Dorsiflexion (L4) 5 Normal Plantarflexion (S1) 5 Normal Inversion 5 Normal Eversion (S1) 5 Normal Left Dorsiflexion (L4) 3+ Fair+ Plantarflexion (S1) 3 Fair Inversion 3 Fair Eversion (S1) 3+ Fair+ PT-OP-Q Treatments Start: 05/16/19 19:02 Freq: Status: Active Protocol: Document 06/07/19 08:34 [facility] (Rec: 06/07/19 09:32 [facility] [id number]) Cardio Equipment Recumbent Bicycle Duration (Minutes) 5 Resistance 6 Gym Equipment Shuttle Balance red clips Details fwd & side : wt shifts & balance WBOS Therapeutic Exercises Standing Exercises lunges Comments 1 B but stopped d/t pain squat Side bilateral Reps/Minutes 15 Comments in mirror for even wt Manual Therapy Treatment Soft Tissue Mobilization peroneals Body Location L Mobilization Type Rolling Intensity/Depth Moderate Joint Mobilizations talus Joint L Direction distraction Grade II calcaneus Joint L Direction distraction, lat gapping Grade II Neuro Re-Education Treatment Balance Activities dynadiscs Details staggered stance B Comments yellow under L bosu Details standing balance blue side SLS Details B LE PT-OP-R Modalities Start: 05/16/19 19:02 Freq: Status: Active Protocol: Document 06/02/19 08:19 [facility] (Rec: 06/02/19 08:59 [facility] [id number]) Hot Pack/Cold Pack Treatment Cold Pack Location L ankle Patient Position Hooklying Treatment Duration (minutes) 10 PT-OP-T Assessment and Plan Start: 05/16/19 19:02 Freq: Status: Active Protocol: Document 06/07/19 08:34 [facility] (Rec: 06/07/19 09:32 [facility] [id number]) Physical Therapy Assessment Goals activity Short Term Goal (STG) Pt will be able to return to work on full duty without increased pain. STG Duration 06/24/19 Handle Lathe Operator Goal (LTG) Pt will be able to return to working out and running without increased pain. LTG Duration 07/17/19 balance Handle Lathe Operator Goal (LTG) Pt will be able to stand on LLE for 30 sec to show improved balance and stability . LTG Duration 07/17/19 ROM Short Term Goal (STG) Pt will have full AROM of L ankle in order to allow full movements needed for typical ADLs and gait. STG Duration 06/16/19 Handle Lathe Operator Goal (LTG) Pt will be able to ambulate with good motion of ankle in order to have gait without significant deviations. LTG Duration 07/17/19 strength Short Term Goal (STG) Pt will be indep with HEP STG Duration 06/16/19 [facility] Goal (LTG) Pt will have 5/5 in BLE & 4/5 LPM in order to allow her to complete her typical duties like pushing and pulling and lifting at her job without pain. LTG Duration 07/17/19 Assessment Summary Assessment Pt able to tolerate inc time with standing balance exercises. She cont to have dec balance on LLE, but had min pain but mostly feeling of instabilityw ith balance activities today. Unable to do double leg heel raises yet. Physical Therapy Plan Frequency and Duration Frequency of Treatment 2x/Week Duration of Treatment 2 months Plan of Care Start Date 05/17/19 Plan of Care End Date 07/17/19 Next Visit Focus/Plan Next Note Type Treatment Note Next Visit Plan cont to work on gentle joint mobs & soft tissue work, possible laser or US treatment , work on overall LE strengthening
--- NOTE | 2019-06-09 18:44 | PT.OTN ---
Current Diagnoses Pain in left foot (06/09/19) Difficulty in walking, not elsewhere classified (06/09/19) Weakness (06/09/19) Contusion of left foot, initial encounter (06/09/19) Unspecified injury of left ankle, subsequent encounter (06/09/19) Physical Therapy Treatment Note PT-OP-A Visit Information Start: 05/16/19 19:02 Freq: Status: Active Protocol: Document 06/09/19 18:38 [facility] (Rec: 06/09/19 18:44 [facility] [id number]) Out-Patient Physical Therapy Visit Information Visit Information Visit Type Treatment Note Visit Start Time 08:15 Visit Stop Time 09:06 Total Visit Minutes 51 Visit Number 03/04 Number of CREATIVE LEAD Visits 0 PT-OP-B Current Condition Start: 05/16/19 19:02 Freq: Status: Active Protocol: Document 05/17/19 07:26 [facility] (Rec: 05/17/19 09:03 [facility] [id number]) Current Condition History of Current Condition Onset Date about 6 weeks ago Current Complaints L lat ankle and foot History of Current Condition Pt was sitting in pt's chair and had her foot back and accidently ran over it. Pt reports les pain in the foot and toes. Bruising was present at first but all Xrays showed no breaks. 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 Notes she was on light duty for about 1 week , but has returned to the floor for 2 weeks and it hurts a lot more. Reports by mid shift, she is limping whereas when on light duty she wasn't limping at all. Pt reports she used to run 30-45 min 5 days a week and lifting and workouts w/whale trainer for 5 days a week. Now she is not doing any legs or cardio at the gym. Pt reports she has twin 4 year olds. She wears an ELLEN wrap daily and tried to go without it yesterday and that inc pain. Pt reports LBP with LLE numbness into post leg and bottom of foot. Pt Prior Treatments and Tests Xrays-no breaks, instructed to keep wrapped and ice Treatment Goals Patient/Caregiver Goals return to working out, being able to work without pain, be able to do all activities with kids PT-OP-C Subjective Start: 05/16/19 19:02 Freq: Status: Active Protocol: Document 06/09/19 18:38 [facility] (Rec: 06/09/19 18:44 [facility] [id number]) OP-PT Subjective Patient Comments Patient Comments Pt reprots being sore yesterday during her shift and this AM. PT-OP-D Balance Start: 05/16/19 19:02 Freq: Status: Active Protocol: Document 05/17/19 07:26 [facility] (Rec: 05/17/19 09:03 [facility] [id number]) Balance Tests Single Limb Standing Single Limb- Right >30 sec EO, EC 13 sec Single Limb- Left 1 sec EC Tandem Tandem Standing >30 sec B PT-OP-F Manual Assessment Start: 05/16/19 19:02 Freq: Status: Active Protocol: Document 05/17/19 07:26 [facility] (Rec: 05/17/19 09:03 [facility] [id number]) Manual Assessments Soft Tissue Assessment Soft Tissue Mobility Assessment tenderness to palpation in calf, peroneals, ATFL, PTFL, distal fibula, 5th MT Joint Mobility Assessment Joint Mobility Assessment compensated supinated foot position, rearfoot valgus & forefoot valgus PT-OP-G Mobility & Gait Start: 05/16/19 19:02 Freq: Status: Active Protocol: Document 05/17/19 07:26 [facility] (Rec: 05/17/19 09:03 [facility] [id number]) OP Gait Assessment Comments Gait Comments Dec push off and wt acceptance to LLE with dec ankle movement throughout gait PT-OP-J Posture/Palpation/Skin Start: 05/16/19 19:02 Freq: Status: Active Protocol: Document 05/17/19 07:26 [facility] (Rec: 05/17/19 09:03 [facility] [id number]) Posture Evaluation [facility] Postural Classification System Lumbar Protective Mechanism Left AP 0 Lumbar Protective Mechanism Right AP 0 Lumbar Protective Mechanism Left PA 0 Lumbar Protective Mechanism Right PA 0 PT-OP-K Range of Motion Start: 05/16/19 19:02 Freq: Status: Active Protocol: Document 05/17/19 07:26 [facility] (Rec: 05/17/19 09:03 [facility] [id number]) Ankle and Foot Goniometric Range of Motion Ankle and Foot Right Active Ankle/Foot ROM WFL Yes Dorsiflexion with Knee Flexed 12 Dorsiflexion with Knee Extended 4 Left Active Dorsiflexion with Knee Flexed 0 Dorsiflexion with Knee Extended 8 Plantarflexion 40 Inversion 20 Eversion 14 Ankle and Foot ROM Limitations Comments lacking 8 deg to neutral L PT-OP-L Special Tests Start: 05/16/19 19:02 Freq: Status: Active Protocol: Document 05/17/19 07:26 [facility] (Rec: 05/17/19 09:03 [facility] [id number]) Special Tests Foot/Ankle Special Tests Talor Tilt Test Results positive pain L Anterior Draw Test Results positive L PT-OP-M Strength Start: 05/16/19 19:02 Freq: Status: Active Protocol: Document 05/17/19 07:26 [facility] (Rec: 05/17/19 09:03 [facility] [id number]) Hip Strength Hip Manual Muscle Testing Left Flexion (L2) 4- Good- Extension (S1) 4- Good- Abduction 3+ Fair+ External Rotation 4 Good Internal Rotation 4 Good Right Flexion (L2) 4 Good Extension (S1) 4+ Good+ Abduction 4+ Good+ External Rotation 4+ Good+ Internal Rotation 4 Good Knee Strength Knee Manual Muscle Testing Right Flexion (S2) 4+ Good+ Extension (L3) 5 Normal Left Flexion (S2) 4- Good- Extension (L3) 4+ Good+ Ankle/Foot Strength Ankle and Foot Manual Muscle Testing Right Dorsiflexion (L4) 5 Normal Plantarflexion (S1) 5 Normal Inversion 5 Normal Eversion (S1) 5 Normal Left Dorsiflexion (L4) 3+ Fair+ Plantarflexion (S1) 3 Fair Inversion 3 Fair Eversion (S1) 3+ Fair+ PT-OP-Q Treatments Start: 05/16/19 19:02 Freq: Status: Active Protocol: Document 06/09/19 18:38 [facility] (Rec: 06/09/19 18:44 [facility] [id number]) Cardio Equipment Bicycle (Upright) Duration (Minutes) 5 Resistance 3 Seat Position 4 Gym Equipment Shuttle Balance red clips Comments fwd & side wt shift; Fwd staggered stance balance Therapeutic Exercises Sitting Exercises marbles Sitting Exercise Name marble brick picker Side left Reps/Minutes 15 DF Side left Equipment Used L2 Reps/Minutes 10 eversion Sitting Exercise Name long sit inversion & eversion Side left Equipment Used L2 Reps/Minutes 15 ea Standing Exercises heel raises Standing Exercise Name R up and eccentric B Reps/Minutes 10 Manual Therapy Treatment Soft Tissue Mobilization gastroc Body Location med and lat & into achilles tendon Mobilization Type Rolling Intensity/Depth Moderate Neuro Re-Education Treatment Balance Activities tpads Details B Comments 1. blue semi tandem 2 pads 2. black semi tandem bosu Details step ups Reps/Duration 10 B PT-OP-R Modalities Start: 05/16/19 19:02 Freq: Status: Active Protocol: Document 06/09/19 18:38 [facility] (Rec: 06/09/19 18:44 [facility] [id number]) Hot Pack/Cold Pack Treatment Cold Pack Location L ankle Patient Position Hooklying Treatment Duration (minutes) 10 PT-OP-T Assessment and Plan Start: 05/16/19 19:02 Freq: Status: Active Protocol: Document 06/09/19 18:38 [facility] (Rec: 06/09/19 18:44 [facility] [id number]) Physical Therapy Assessment Goals activity Short Term Goal (STG) Pt will be able to return to work on full duty without increased pain. STG Duration 06/24/19 Sharepoint Manager Goal (LTG) Pt will be able to return to working out and running without increased pain. LTG Duration 07/17/19 balance Sharepoint Manager Goal (LTG) Pt will be able to stand on LLE for 30 sec to show improved balance and stability . LTG Duration 07/17/19 ROM Short Term Goal (STG) Pt will have full AROM of L ankle in order to allow full movements needed for typical ADLs and gait. STG Duration 06/16/19 Sharepoint Manager Goal (LTG) Pt will be able to ambulate with good motion of ankle in order to have gait without significant deviations. LTG Duration 07/17/19 strength Short Term Goal (STG) Pt will be indep with HEP STG Duration 06/16/19 Nursing Home Goal (LTG) Pt will have 5/5 in BLE & 4/5 LPM in order to allow her to complete her typical duties like pushing and pulling and lifting at her job without pain. LTG Duration 07/17/19 Assessment Summary Assessment Pt cont to improve with ability to balance and wt shift. She was able to do eccentric B standing PF. She cont to have soft tissue restrictiosn laterally along achilles tendon. Physical Therapy Plan Frequency and Duration Frequency of Treatment 2x/Week Duration of Treatment 2 months Plan of Care Start Date 05/17/19 Plan of Care End Date 07/17/19 Next Visit Focus/Plan Next Note Type Treatment Note Next Visit Plan forefoot mobs, possible laser, soft tissue mobility & cont to progress LE strength & balance
--- NOTE | 2019-06-14 09:01 | PT.OTN ---
Current Diagnoses Pain in left foot (06/14/19) Difficulty in walking, not elsewhere classified (06/14/19) Weakness (06/14/19) Contusion of left foot, initial encounter (06/14/19) Unspecified injury of left ankle, subsequent encounter (06/14/19) Physical Therapy Treatment Note PT-OP-A Visit Information Start: 05/16/19 19:02 Freq: Status: Active Protocol: Document 06/14/19 08:26 [facility] (Rec: 06/14/19 09:00 [facility] [id number]) Out-Patient Physical Therapy Visit Information Visit Information Visit Type Treatment Note Visit Start Time 08:20 Visit Number 8 Number of PHYSICIAN PRESIDENT Visits 0 PT-OP-B Current Condition Start: 05/16/19 19:02 Freq: Status: Active Protocol: Document 05/17/19 07:26 [facility] (Rec: 05/17/19 09:03 [facility] [id number]) Current Condition History of Current Condition Onset Date about 6 weeks ago Current Complaints L lat ankle and foot History of Current Condition Pt was sitting in pt's chair and had her foot back and accidently ran over it. Pt reports les pain in the foot and toes. Bruising was present at first but all Xrays showed no breaks. 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 Notes she was on light duty for about 1 week , but has returned to the floor for 2 weeks and it hurts a lot more. Reports by mid shift, she is limping whereas when on light duty she wasn't limping at all. Pt reports she used to run 30-45 min 5 days a week and lifting and workouts w/assistant athletic trainer for 5 days a week. Now she is not doing any legs or cardio at the gym. Pt reports she has twin 4 year olds. She wears an ELLEN wrap daily and tried to go without it yesterday and that inc pain. Pt reports LBP with LLE numbness into post leg and bottom of foot. Pt Prior Treatments and Tests Xrays-no breaks, instructed to keep wrapped and ice Treatment Goals Patient/Caregiver Goals return to working out, being able to work without pain, be able to do all activities with kids PT-OP-C Subjective Start: 05/16/19 19:02 Freq: Status: Active Protocol: Document 06/14/19 08:26 [facility] (Rec: 06/14/19 09:00 [facility] [id number]) OP-PT Subjective Patient Comments Patient Comments Pt reports being okay on and sore Thursday mid shift, but was better Sat and thursday. 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 She reports not much pain today but she hasn't done much . PT-OP-D Balance Start: 05/16/19 19:02 Freq: Status: Active Protocol: Document 05/17/19 07:26 [facility] (Rec: 05/17/19 09:03 [facility] [id number]) Balance Tests Single Limb Standing Single Limb- Right >30 sec EO, EC 13 sec Single Limb- Left 1 sec EC Tandem Tandem Standing >30 sec B PT-OP-F Manual Assessment Start: 05/16/19 19:02 Freq: Status: Active Protocol: Document 05/17/19 07:26 [facility] (Rec: 05/17/19 09:03 [facility] [id number]) Manual Assessments Soft Tissue Assessment Soft Tissue Mobility Assessment tenderness to palpation in calf, peroneals, ATFL, PTFL, distal fibula, 5th MT Joint Mobility Assessment Joint Mobility Assessment compensated supinated foot position, rearfoot valgus & forefoot valgus PT-OP-G Mobility & Gait Start: 05/16/19 19:02 Freq: Status: Active Protocol: Document 05/17/19 07:26 [facility] (Rec: 05/17/19 09:03 [facility] [id number]) OP Gait Assessment Comments Gait Comments Dec push off and wt acceptance to LLE with dec ankle movement throughout gait PT-OP-J Posture/Palpation/Skin Start: 05/16/19 19:02 Freq: Status: Active Protocol: Document 05/17/19 07:26 [facility] (Rec: 05/17/19 09:03 [facility] [id number]) Posture Evaluation Fam Postural Classification System Lumbar Protective Mechanism Left AP 0 Lumbar Protective Mechanism Right AP 0 Lumbar Protective Mechanism Left PA 0 Lumbar Protective Mechanism Right PA 0 PT-OP-K Range of Motion Start: 05/16/19 19:02 Freq: Status: Active Protocol: Document 05/17/19 07:26 [facility] (Rec: 05/17/19 09:03 [facility] [id number]) Ankle and Foot Goniometric Range of Motion Ankle and Foot Right Active Ankle/Foot ROM WFL Yes Dorsiflexion with Knee Flexed 12 Dorsiflexion with Knee Extended 4 Left Active Dorsiflexion with Knee Flexed 0 Dorsiflexion with Knee Extended 8 Plantarflexion 40 Inversion 20 Eversion 14 Ankle and Foot ROM Limitations Comments lacking 8 deg to neutral L PT-OP-L Special Tests Start: 05/16/19 19:02 Freq: Status: Active Protocol: Document 05/17/19 07:26 [facility] (Rec: 05/17/19 09:03 [facility] [id number]) Special Tests Foot/Ankle Special Tests Talor Tilt Test Results positive pain L Anterior Draw Test Results positive L PT-OP-M Strength Start: 05/16/19 19:02 Freq: Status: Active Protocol: Document 05/17/19 07:26 [facility] (Rec: 05/17/19 09:03 [facility] [id number]) Hip Strength Hip Manual Muscle Testing Left Flexion (L2) 4- Good- Extension (S1) 4- Good- Abduction 3+ Fair+ External Rotation 4 Good Internal Rotation 4 Good Right Flexion (L2) 4 Good Extension (S1) 4+ Good+ Abduction 4+ Good+ External Rotation 4+ Good+ Internal Rotation 4 Good Knee Strength Knee Manual Muscle Testing Right Flexion (S2) 4+ Good+ Extension (L3) 5 Normal Left Flexion (S2) 4- Good- Extension (L3) 4+ Good+ Ankle/Foot Strength Ankle and Foot Manual Muscle Testing Right Dorsiflexion (L4) 5 Normal Plantarflexion (S1) 5 Normal Inversion 5 Normal Eversion (S1) 5 Normal Left Dorsiflexion (L4) 3+ Fair+ Plantarflexion (S1) 3 Fair Inversion 3 Fair Eversion (S1) 3+ Fair+ PT-OP-Q Treatments Start: 05/16/19 19:02 Freq: Status: Active Protocol: Document 06/14/19 08:26 [facility] (Rec: 06/14/19 09:00 [facility] [id number]) Cardio Equipment Bicycle (Upright) Duration (Minutes) 5 Resistance 5 Seat Position 4 Gym Equipment Shuttle Balance red clips Comments fwd & side wt shift & WBOS balance; Fwd staggered stance balance Therapeutic Exercises Standing Exercises heel raises Standing Exercise Name R concentric and eccentric B Reps/Minutes 10 Manual Therapy Treatment Soft Tissue Mobilization plantar fascia Body Location L Mobilization Type Rolling Intensity/Depth Moderate Body Position Supine gastroc Body Location lat>med achilles tendon Mobilization Type Rolling,Strumming Intensity/Depth Moderate Neuro Re-Education Treatment Balance Activities tpads Comments 1. tandem on green tpads bosu Details standing balance blue side Comments w/head turns SLS Details B LE PT-OP-R Modalities Start: 05/16/19 19:02 Freq: Status: Active Protocol: Document 06/09/19 18:38 [facility] (Rec: 06/09/19 18:44 [facility] [id number]) Hot Pack/Cold Pack Treatment Cold Pack Location L ankle Patient Position Hooklying Treatment Duration (minutes) 10 PT-OP-T Assessment and Plan Start: 05/16/19 19:02 Freq: Status: Active Protocol: Document 06/14/19 08:26 [facility] (Rec: 06/14/19 09:00 [facility] [id number]) Physical Therapy Assessment Goals activity Short Term Goal (STG) Pt will be able to return to work on full duty without increased pain. STG Duration 06/24/19 Care Home Goal (LTG) Pt will be able to return to working out and running without increased pain. LTG Duration 07/17/19 balance Care Home Goal (LTG) Pt will be able to stand on LLE for 30 sec to show improved balance and stability . LTG Duration 07/17/19 ROM Short Term Goal (STG) Pt will have full AROM of L ankle in order to allow full movements needed for typical ADLs and gait. STG Duration 06/16/19 Small Piece Cutter Goal (LTG) Pt will be able to ambulate with good motion of ankle in order to have gait without significant deviations. LTG Duration 07/17/19 strength Short Term Goal (STG) Pt will be indep with HEP STG Duration 06/16/19 Care Home Goal (LTG) Pt will have 5/5 in BLE & 4/5 LPM in order to allow her to complete her typical duties like pushing and pulling and lifting at her job without pain. LTG Duration 07/17/19 Assessment Summary Assessment Pt noted some mild tightness on bottom of foot after balance exercises. Today plantar fascia had significant tightness that improved with STM. COnt lat achilles soft tissue tightness. Physical Therapy Plan Frequency and Duration Frequency of Treatment 2x/Week Duration of Treatment 2 months Plan of Care Start Date 05/17/19 Plan of Care End Date 07/17/19 Next Visit Focus/Plan Next Note Type Treatment Note Next Visit Plan forefoot mobs as needed, possible laser, soft tissue mobility & cont to progress LE strength & balance
--- NOTE | 2019-06-16 09:02 | PT.OTN ---
Current Diagnoses Pain in left foot (06/16/19) Difficulty in walking, not elsewhere classified (06/16/19) Weakness (06/16/19) Contusion of left foot, initial encounter (06/16/19) Unspecified injury of left ankle, subsequent encounter (06/16/19) Physical Therapy Treatment Note PT-OP-A Visit Information Start: 05/16/19 19:02 Freq: Status: Active Protocol: Document 06/16/19 09:01 [facility] (Rec: 06/16/19 09:00 [facility] [id number]) Out-Patient Physical Therapy Visit Information Visit Information Visit Type Treatment Note Visit Start Time 08:17 Visit Stop Time 08:06 Total Visit Minutes 49 Visit Number 05/05 Number of BRAKE HOLDER Visits 0 PT-OP-B Current Condition Start: 05/16/19 19:02 Freq: Status: Active Protocol: Document 05/17/19 07:26 [facility] (Rec: 05/17/19 09:03 [facility] [id number]) Current Condition History of Current Condition Onset Date about 6 weeks ago Current Complaints L lat ankle and foot History of Current Condition Pt was sitting in pt's chair and had her foot back and accidently ran over it. Pt reports les pain in the foot and toes. Bruising was present at first but all Xrays showed no breaks. 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 Notes she was on light duty for about 1 week , but has returned to the floor for 2 weeks and it hurts a lot more. Reports by mid shift, she is limping whereas when on light duty she wasn't limping at all. Pt reports she used to run 30-45 min 5 days a week and lifting and workouts w/principal trainer for 5 days a week. Now she is not doing any legs or cardio at the gym. Pt reports she has twin 4 year olds. She wears an ELLEN wrap daily and tried to go without it yesterday and that inc pain. Pt reports LBP with LLE numbness into post leg and bottom of foot. Pt Prior Treatments and Tests Xrays-no breaks, instructed to keep wrapped and ice Treatment Goals Patient/Caregiver Goals return to working out, being able to work without pain, be able to do all activities with kids PT-OP-C Subjective Start: 05/16/19 19:02 Freq: Status: Active Protocol: Document 06/16/19 09:01 [facility] (Rec: 06/16/19 09:00 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 PT-OP-D Balance Start: 05/16/19 19:02 Freq: Status: Active Protocol: Document 05/17/19 07:26 [facility] (Rec: 05/17/19 09:03 [facility] [id number]) Balance Tests Single Limb Standing Single Limb- Right >30 sec EO, EC 13 sec Single Limb- Left 1 sec EC Tandem Tandem Standing >30 sec B PT-OP-F Manual Assessment Start: 05/16/19 19:02 Freq: Status: Active Protocol: Document 05/17/19 07:26 [facility] (Rec: 05/17/19 09:03 [facility] [id number]) Manual Assessments Soft Tissue Assessment Soft Tissue Mobility Assessment tenderness to palpation in calf, peroneals, ATFL, PTFL, distal fibula, 5th MT Joint Mobility Assessment Joint Mobility Assessment compensated supinated foot position, rearfoot valgus & forefoot valgus PT-OP-G Mobility & Gait Start: 05/16/19 19:02 Freq: Status: Active Protocol: Document 05/17/19 07:26 [facility] (Rec: 05/17/19 09:03 [facility] [id number]) OP Gait Assessment Comments Gait Comments Dec push off and wt acceptance to LLE with dec ankle movement throughout gait PT-OP-J Posture/Palpation/Skin Start: 05/16/19 19:02 Freq: Status: Active Protocol: Document 05/17/19 07:26 [facility] (Rec: 05/17/19 09:03 [facility] [id number]) Posture Evaluation Fam Postural Classification System Lumbar Protective Mechanism Left AP 0 Lumbar Protective Mechanism Right AP 0 Lumbar Protective Mechanism Left PA 0 Lumbar Protective Mechanism Right PA 0 PT-OP-K Range of Motion Start: 05/16/19 19:02 Freq: Status: Active Protocol: Document 05/17/19 07:26 [facility] (Rec: 05/17/19 09:03 [facility] [id number]) Ankle and Foot Goniometric Range of Motion Ankle and Foot Right Active Ankle/Foot ROM WFL Yes Dorsiflexion with Knee Flexed 12 Dorsiflexion with Knee Extended 4 Left Active Dorsiflexion with Knee Flexed 0 Dorsiflexion with Knee Extended 8 Plantarflexion 40 Inversion 20 Eversion 14 Ankle and Foot ROM Limitations Comments lacking 8 deg to neutral L PT-OP-L Special Tests Start: 05/16/19 19:02 Freq: Status: Active Protocol: Document 05/17/19 07:26 [facility] (Rec: 05/17/19 09:03 [facility] [id number]) Special Tests Foot/Ankle Special Tests Talor Tilt Test Results positive pain L Anterior Draw Test Results positive L PT-OP-M Strength Start: 05/16/19 19:02 Freq: Status: Active Protocol: Document 05/17/19 07:26 [facility] (Rec: 05/17/19 09:03 [facility] [id number]) Hip Strength Hip Manual Muscle Testing Left Flexion (L2) 4- Good- Extension (S1) 4- Good- Abduction 3+ Fair+ External Rotation 4 Good Internal Rotation 4 Good Right Flexion (L2) 4 Good Extension (S1) 4+ Good+ Abduction 4+ Good+ External Rotation 4+ Good+ Internal Rotation 4 Good Knee Strength Knee Manual Muscle Testing Right Flexion (S2) 4+ Good+ Extension (L3) 5 Normal Left Flexion (S2) 4- Good- Extension (L3) 4+ Good+ Ankle/Foot Strength Ankle and Foot Manual Muscle Testing Right Dorsiflexion (L4) 5 Normal Plantarflexion (S1) 5 Normal Inversion 5 Normal Eversion (S1) 5 Normal Left Dorsiflexion (L4) 3+ Fair+ Plantarflexion (S1) 3 Fair Inversion 3 Fair Eversion (S1) 3+ Fair+ PT-OP-Q Treatments Start: 05/16/19 19:02 Freq: Status: Active Protocol: Document 06/16/19 09:01 [facility] (Rec: 06/16/19 09:00 [facility] [id number]) Cardio Equipment Bicycle (Upright) Duration (Minutes) 5 Resistance 5 Seat Position 4 Gym Equipment Shuttle Balance red clips Comments fwd & side wt shift & WBOS & NBOS balance; Fwd staggered stance balance Therapeutic Exercises Standing Exercises lunges Standing Exercise Name lat Side bilateral Reps/Minutes 10 squat Side bilateral Equipment Used 10lb Reps/Minutes 10 Manual Therapy Treatment Soft Tissue Mobilization plantar fascia Body Location L Mobilization Type Rolling Intensity/Depth Moderate Body Position Supine gastroc Body Location lat>med achilles tendon Mobilization Type Rolling,Strumming Intensity/Depth Moderate tib ant Body Location L distal Mobilization Type Strumming Intensity/Depth Moderate Neuro Re-Education Treatment Balance Activities dynadiscs Details staggered stance bosu Details step ups w/ 2 leg balance Reps/Duration 10 B PT-OP-R Modalities Start: 05/16/19 19:02 Freq: Status: Active Protocol: Document 06/16/19 09:01 [facility] (Rec: 06/16/19 09:01 [facility] [id number]) Hot Pack/Cold Pack Treatment Cold Pack Location L ankle Patient Position Hooklying Treatment Duration (minutes) 10 PT-OP-T Assessment and Plan Start: 05/16/19 19:02 Freq: Status: Active Protocol: Document 06/16/19 09:01 [facility] (Rec: 06/16/19 09:00 [facility] [id number]) Physical Therapy Assessment Goals activity Short Term Goal (STG) Pt will be able to return to work on full duty without increased pain. STG Duration 06/24/19 Wood Pole Treater Goal (LTG) Pt will be able to return to working out and running without increased pain. LTG Duration 07/17/19 balance Long-Term Goal (LTG) Pt will be able to stand on LLE for 30 sec to show improved balance and stability . LTG Duration 07/17/19 ROM Short Term Goal (STG) Pt will have full AROM of L ankle in order to allow full movements needed for typical ADLs and gait. STG Duration 06/16/19 Long-Term Goal (LTG) Pt will be able to ambulate with good motion of ankle in order to have gait without significant deviations. LTG Duration 07/17/19 strength Short Term Goal (STG) Pt will be indep with HEP STG Duration 06/16/19 Wood Pole Treater Goal (LTG) Pt will have 5/5 in BLE & 4/5 LPM in order to allow her to complete her typical duties like pushing and pulling and lifting at her job without pain. LTG Duration 07/17/19 Assessment Summary Assessment Pt able to tolerate inc difficulty exercises today. Min pain reported with squatting with wt. Pt able to do all balance exercises without c/o inc pain Physical Therapy Plan Frequency and Duration Frequency of Treatment 2x/Week Duration of Treatment 2 months Plan of Care Start Date 05/17/19 Plan of Care End Date 07/17/19 Next Visit Focus/Plan Next Note Type Treatment Note Next Visit Plan possible laser, soft tissue mobility & cont to progress LE strength & balance
--- NOTE | 2019-06-21 09:29 | PT.OTN ---
Current Diagnoses Pain in left foot (06/21/19) Difficulty in walking, not elsewhere classified (06/21/19) Weakness (06/21/19) Contusion of left foot, initial encounter (06/21/19) Unspecified injury of left ankle, subsequent encounter (06/21/19) Physical Therapy Treatment Note PT-OP-A Visit Information Start: 05/16/19 19:02 Freq: Status: Active Protocol: Document 06/21/19 08:15 [facility] (Rec: 06/21/19 09:22 [facility] [id number]) Out-Patient Physical Therapy Visit Information Visit Information Visit Type Treatment Note Visit Start Time 08:15 Visit Stop Time 09:10 Total Visit Minutes 55 Visit Number 06/04 Number of CEMENTER HAND Visits 0 PT-OP-B Current Condition Start: 05/16/19 19:02 Freq: Status: Active Protocol: Document 05/17/19 07:26 [facility] (Rec: 05/17/19 09:03 [facility] [id number]) Current Condition History of Current Condition Onset Date about 6 weeks ago Current Complaints L lat ankle and foot History of Current Condition Pt was sitting in pt's chair and had her foot back and accidently ran over it. Pt reports les pain in the foot and toes. Bruising was present at first but all Xrays showed no breaks. 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. Notes she was on light duty for about 1 week , but has returned to the floor for 2 weeks and it hurts a lot more. Reports by mid shift, she is limping whereas when on light duty she wasn't limping at all. Pt reports she used to run 30-45 min 5 days a week and lifting and workouts w/personal computer specialist for 5 days a week. Now she is not doing any legs or cardio at the gym. Pt reports she has twin 4 year olds. She wears an ELLEN wrap daily and tried to go without it yesterday and that inc pain. Pt reports LBP with LLE numbness into post leg and bottom of foot. Pt Prior Treatments and Tests Xrays-no breaks, instructed to keep wrapped and ice Treatment Goals Patient/Caregiver Goals return to working out, being able to work without pain, be able to do all activities with kids PT-OP-C Subjective Start: 05/16/19 19:02 Freq: Status: Active Protocol: Document 06/21/19 08:15 [facility] (Rec: 06/21/19 09:22 [facility] [email or web address]) OP-PT Subjective Patient Comments Patient Comments pt reports that she feels the pain is decreasing in her L ankle and she is able to tolerate more at work. She has not been able to contact her doctor about an MRI yet. PT-OP-D Balance Start: 05/16/19 19:02 Freq: Status: Active Protocol: Document 05/17/19 07:26 [facility] (Rec: 05/17/19 09:03 [facility] [id number]) Balance Tests Single Limb Standing Single Limb- Right >30 sec EO, EC 13 sec Single Limb- Left 1 sec EC Tandem Tandem Standing >30 sec B PT-OP-F Manual Assessment Start: 05/16/19 19:02 Freq: Status: Active Protocol: Document 05/17/19 07:26 [facility] (Rec: 05/17/19 09:03 [facility] [id number]) Manual Assessments Soft Tissue Assessment Soft Tissue Mobility Assessment tenderness to palpation in calf, peroneals, ATFL, PTFL, distal fibula, 5th MT Joint Mobility Assessment Joint Mobility Assessment compensated supinated foot position, rearfoot valgus & forefoot valgus PT-OP-G Mobility & Gait Start: 05/16/19 19:02 Freq: Status: Active Protocol: Document 05/17/19 07:26 [facility] (Rec: 05/17/19 09:03 [facility] [id number]) OP Gait Assessment Comments Gait Comments Dec push off and wt acceptance to LLE with dec ankle movement throughout gait PT-OP-J Posture/Palpation/Skin Start: 05/16/19 19:02 Freq: Status: Active Protocol: Document 05/17/19 07:26 [facility] (Rec: 05/17/19 09:03 [facility] [id number]) Posture Evaluation Fam Postural Classification System Lumbar Protective Mechanism Left AP 0 Lumbar Protective Mechanism Right AP 0 Lumbar Protective Mechanism Left PA 0 Lumbar Protective Mechanism Right PA 0 PT-OP-K Range of Motion Start: 05/16/19 19:02 Freq: Status: Active Protocol: Document 05/17/19 07:26 [facility] (Rec: 05/17/19 09:03 [facility] [id number]) Ankle and Foot Goniometric Range of Motion Ankle and Foot Right Active Ankle/Foot ROM WFL Yes Dorsiflexion with Knee Flexed 12 Dorsiflexion with Knee Extended 4 Left Active Dorsiflexion with Knee Flexed 0 Dorsiflexion with Knee Extended 8 Plantarflexion 40 Inversion 20 Eversion 14 Ankle and Foot ROM Limitations Comments lacking 8 deg to neutral L PT-OP-L Special Tests Start: 05/16/19 19:02 Freq: Status: Active Protocol: Document 05/17/19 07:26 [facility] (Rec: 05/17/19 09:03 [facility] [id number]) Special Tests Foot/Ankle Special Tests Talor Tilt Test Results positive pain L Anterior Draw Test Results positive L PT-OP-M Strength Start: 05/16/19 19:02 Freq: Status: Active Protocol: Document 05/17/19 07:26 [facility] (Rec: 05/17/19 09:03 [facility] [id number]) Hip Strength Hip Manual Muscle Testing Left Flexion (L2) 4- Good- Extension (S1) 4- Good- Abduction 3+ Fair+ External Rotation 4 Good Internal Rotation 4 Good Right Flexion (L2) 4 Good Extension (S1) 4+ Good+ Abduction 4+ Good+ External Rotation 4+ Good+ Internal Rotation 4 Good Knee Strength Knee Manual Muscle Testing Right Flexion (S2) 4+ Good+ Extension (L3) 5 Normal Left Flexion (S2) 4- Good- Extension (L3) 4+ Good+ Ankle/Foot Strength Ankle and Foot Manual Muscle Testing Right Dorsiflexion (L4) 5 Normal Plantarflexion (S1) 5 Normal Inversion 5 Normal Eversion (S1) 5 Normal Left Dorsiflexion (L4) 3+ Fair+ Plantarflexion (S1) 3 Fair Inversion 3 Fair Eversion (S1) 3+ Fair+ PT-OP-Q Treatments Start: 05/16/19 19:02 Freq: Status: Active Protocol: Document 06/21/19 08:15 [facility] (Rec: 06/21/19 09:22 [facility] [email or web address]) Cardio Equipment Bicycle (Upright) Duration (Minutes) 5 Resistance 5 Seat Position 4 Gym Equipment Shuttle Balance red clips Reps/Duration 10 weight shifts and hold 1 min Comments fwd & side wt shift & WBOS balance Therapeutic Exercises Standing Exercises heel raises Standing Exercise Name B LE, with greater weight acceptance on L to decrease pain Reps/Minutes 20 Comments accepting more weigth on R than before, tennis ball between ankles Manual Therapy Treatment Soft Tissue Mobilization plantar fascia Body Location L Mobilization Type Rolling Intensity/Depth Moderate Body Position Supine gastroc Body Location lat>med achilles tendon Mobilization Type Rolling,Strumming Intensity/Depth Moderate peroneals Body Location L Mobilization Type Strumming Intensity/Depth Superficial Body Position Supine Comments pt continues to have tenderness in lateral midfoot and base of 5th met Joint Mobilizations talus Joint L Direction distraction w/ ant glide Grade III Body Position Supine calcaneus Joint L Direction distraction and lat gapping Grade III Body Position Supine Neuro Re-Education Treatment Balance Activities tpads Details SLS Surface green pad Reps/Duration 2 minute total time Comments occasional use of R handrail bosu Details step up/downs w/ 2 leg balance Reps/Duration 20 L SLS Details B LE Surface firm Reps/Duration 1 minute Comments pt reported less pain and was able to maintain balance better than in previous sessions PT-OP-R Modalities Start: 05/16/19 19:02 Freq: Status: Active Protocol: Document 06/21/19 09:22 [facility] (Rec: 06/21/19 09:23 [facility] [email or web address]) Hot Pack/Cold Pack Treatment Cold Pack Location L ankle Patient Position Hooklying Treatment Duration (minutes) 10 PT-OP-T Assessment and Plan Start: 05/16/19 19:02 Freq: Status: Active Protocol: Document 06/21/19 08:15 [facility] (Rec: 06/21/19 09:22 [facility] [email or web address]) Physical Therapy Assessment Goals activity Short Term Goal (STG) Pt will be able to return to work on full duty without increased pain. STG Duration 06/24/19 Mcfp Goal (LTG) Pt will be able to return to working out and running without increased pain. LTG Duration 07/17/19 balance Sports Marketing Specialist Goal (LTG) Pt will be able to stand on LLE for 30 sec to show improved balance and stability . LTG Duration 07/17/19 ROM Short Term Goal (STG) Pt will have full AROM of L ankle in order to allow full movements needed for typical ADLs and gait. STG Duration 06/16/19 Sports Marketing Specialist Goal (LTG) Pt will be able to ambulate with good motion of ankle in order to have gait without significant deviations. LTG Duration 07/17/19 strength Short Term Goal (STG) Pt will be indep with HEP STG Duration 06/16/19 Sports Marketing Specialist Goal (LTG) Pt will have 5/5 in BLE & 4/5 LPM in order to allow her to complete her typical duties like pushing and pulling and lifting at her job without pain. LTG Duration 07/17/19 Assessment Summary Assessment Pt was able to tolerate session with increased difficulty of balance and strengthening exercises. She is unable to maintain SLS balance on her LLE. She continues to have more trouble with DF than PF, but was able to tolerate slight DF into a calf stretch, which is improved from her last session . Her L calf and Achilles is much more tight and stiff than her R; pt was told to add the calf stertching exercise to her HEP. She was able to tolerate STM and small mobilizations of her calcaneus and talus with anterior glides to increase pain free range of DF. She continues to have tednerness on her lateral midfoot and base of 5th metatarsal Physical Therapy Plan Frequency and Duration Frequency of Treatment 2x/Week Duration of Treatment 2 months Plan of Care Start Date 05/17/19 Plan of Care End Date 07/17/19 Next Visit Focus/Plan Next Note Type Treatment Note Next Visit Plan try warming up on the elliptical to progress to running form, continue to progress strength and balance, possible laser
--- NOTE | 2019-06-23 09:40 | PT.OTN ---
Current Diagnoses Pain in left foot (06/23/19) Difficulty in walking, not elsewhere classified (06/23/19) Weakness (06/23/19) Contusion of left foot, initial encounter (06/23/19) Unspecified injury of left ankle, subsequent encounter (06/23/19) Physical Therapy Treatment Note PT-OP-A Visit Information Start: 05/16/19 19:02 Freq: Status: Active Protocol: Document 06/23/19 09:35 [facility] (Rec: 06/23/19 09:40 [facility] [id number]) Out-Patient Physical Therapy Visit Information Visit Information Visit Type Treatment Note Visit Start Time 08:15 Visit Stop Time 09:05 Total Visit Minutes 50 Visit Number 07/05 Number of BUTTON BREAKER Visits 0 PT-OP-B Current Condition Start: 05/16/19 19:02 Freq: Status: Active Protocol: Document 05/17/19 07:26 [facility] (Rec: 05/17/19 09:03 [facility] [id number]) Current Condition History of Current Condition Onset Date about 6 weeks ago Current Complaints L lat ankle and foot History of Current Condition Pt was sitting in pt's chair and had her foot back and accidently ran over it. Pt reports les pain in the foot and toes. Bruising was present at first but all Xrays showed no breaks. 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 Notes she was on light duty for about 1 week , but has returned to the floor for 2 weeks and it hurts a lot more. Reports by mid shift, she is limping whereas when on light duty she wasn't limping at all. Pt reports she used to run 30-45 min 5 days a week and lifting and workouts w/manager personal for 5 days a week. Now she is not doing any legs or cardio at the gym. Pt reports she has twin 4 year olds. She wears an ELLEN wrap daily and tried to go without it yesterday and that inc pain. Pt reports LBP with LLE numbness into post leg and bottom of foot. Pt Prior Treatments and Tests Xrays-no breaks, instructed to keep wrapped and ice Treatment Goals Patient/Caregiver Goals return to working out, being able to work without pain, be able to do all activities with kids PT-OP-C Subjective Start: 05/16/19 19:02 Freq: Status: Active Protocol: Document 06/23/19 09:35 [facility] (Rec: 06/23/19 09:40 [facility] [id number]) OP-PT Subjective Patient Comments Patient Comments Pt reprots she got her MRI approved. She has to schedule it. PT-OP-D Balance Start: 05/16/19 19:02 Freq: Status: Active Protocol: Document 05/17/19 07:26 [facility] (Rec: 05/17/19 09:03 [facility] [id number]) Balance Tests Single Limb Standing Single Limb- Right >30 sec EO, EC 13 sec Single Limb- Left 1 sec EC Tandem Tandem Standing >30 sec B PT-OP-F Manual Assessment Start: 05/16/19 19:02 Freq: Status: Active Protocol: Document 05/17/19 07:26 [facility] (Rec: 05/17/19 09:03 [facility] [id number]) Manual Assessments Soft Tissue Assessment Soft Tissue Mobility Assessment tenderness to palpation in calf, peroneals, ATFL, PTFL, distal fibula, 5th MT Joint Mobility Assessment Joint Mobility Assessment compensated supinated foot position, rearfoot valgus & forefoot valgus PT-OP-G Mobility & Gait Start: 05/16/19 19:02 Freq: Status: Active Protocol: Document 05/17/19 07:26 [facility] (Rec: 05/17/19 09:03 [facility] [id number]) OP Gait Assessment Comments Gait Comments Dec push off and wt acceptance to LLE with dec ankle movement throughout gait PT-OP-J Posture/Palpation/Skin Start: 05/16/19 19:02 Freq: Status: Active Protocol: Document 05/17/19 07:26 [facility] (Rec: 05/17/19 09:03 [facility] [id number]) Posture Evaluation [facility] Postural Classification System Lumbar Protective Mechanism Left AP 0 Lumbar Protective Mechanism Right AP 0 Lumbar Protective Mechanism Left PA 0 Lumbar Protective Mechanism Right PA 0 PT-OP-K Range of Motion Start: 05/16/19 19:02 Freq: Status: Active Protocol: Document 05/17/19 07:26 [facility] (Rec: 05/17/19 09:03 [facility] [id number]) Ankle and Foot Goniometric Range of Motion Ankle and Foot Right Active Ankle/Foot ROM WFL Yes Dorsiflexion with Knee Flexed 12 Dorsiflexion with Knee Extended 4 Left Active Dorsiflexion with Knee Flexed 0 Dorsiflexion with Knee Extended 8 Plantarflexion 40 Inversion 20 Eversion 14 Ankle and Foot ROM Limitations Comments lacking 8 deg to neutral L PT-OP-L Special Tests Start: 05/16/19 19:02 Freq: Status: Active Protocol: Document 05/17/19 07:26 [facility] (Rec: 05/17/19 09:03 [facility] [id number]) Special Tests Foot/Ankle Special Tests Talor Tilt Test Results positive pain L Anterior Draw Test Results positive L PT-OP-M Strength Start: 05/16/19 19:02 Freq: Status: Active Protocol: Document 05/17/19 07:26 [facility] (Rec: 05/17/19 09:03 [facility] [id number]) Hip Strength Hip Manual Muscle Testing Left Flexion (L2) 4- Good- Extension (S1) 4- Good- Abduction 3+ Fair+ External Rotation 4 Good Internal Rotation 4 Good Right Flexion (L2) 4 Good Extension (S1) 4+ Good+ Abduction 4+ Good+ External Rotation 4+ Good+ Internal Rotation 4 Good Knee Strength Knee Manual Muscle Testing Right Flexion (S2) 4+ Good+ Extension (L3) 5 Normal Left Flexion (S2) 4- Good- Extension (L3) 4+ Good+ Ankle/Foot Strength Ankle and Foot Manual Muscle Testing Right Dorsiflexion (L4) 5 Normal Plantarflexion (S1) 5 Normal Inversion 5 Normal Eversion (S1) 5 Normal Left Dorsiflexion (L4) 3+ Fair+ Plantarflexion (S1) 3 Fair Inversion 3 Fair Eversion (S1) 3+ Fair+ PT-OP-Q Treatments Start: 05/16/19 19:02 Freq: Status: Active Protocol: Document 06/23/19 09:35 [facility] (Rec: 06/23/19 09:40 [facility] [id number]) Cardio Equipment Elliptical Duration (Minutes) 5 Resistance 1 Gym Equipment Shuttle Balance red clips Comments fwd: WBOS & NBOS EC, staggered stance EO side: WBOS & NBOS EC Neuro Re-Education Treatment Balance Activities balance board Details fwd/back & side/side wt shifts Comments w/fwd/back ant glide of fibula dynadiscs Details staggered stance B bosu Comments 1. side lunges x15 B PT-OP-R Modalities Start: 05/16/19 19:02 Freq: Status: Active Protocol: Document 06/23/19 09:35 [facility] (Rec: 06/23/19 09:40 [facility] [id number]) Hot Pack/Cold Pack Treatment Cold Pack Location L ankle Patient Position Hooklying Treatment Duration (minutes) 10 PT-OP-T Assessment and Plan Start: 05/16/19 19:02 Freq: Status: Active Protocol: Document 06/23/19 09:35 [facility] (Rec: 06/23/19 09:40 [facility] [id number]) Physical Therapy Assessment Goals activity Short Term Goal (STG) Pt will be able to return to work on full duty without increased pain. STG Duration 06/24/19 Prison Goal (LTG) Pt will be able to return to working out and running without increased pain. LTG Duration 07/17/19 balance Tree Chipper Goal (LTG) Pt will be able to stand on LLE for 30 sec to show improved balance and stability . LTG Duration 07/17/19 ROM Short Term Goal (STG) Pt will have full AROM of L ankle in order to allow full movements needed for typical ADLs and gait. STG Duration 06/16/19 Prison Goal (LTG) Pt will be able to ambulate with good motion of ankle in order to have gait without significant deviations. LTG Duration 07/17/19 strength Short Term Goal (STG) Pt will be indep with HEP STG Duration 06/16/19 Prison Goal (LTG) Pt will have 5/5 in BLE & 4/5 LPM in order to allow her to complete her typical duties like pushing and pulling and lifting at her job without pain. LTG Duration 07/17/19 Assessment Summary Assessment Pt improvingw ith balance and was able to do eyes closed activities. She had dec pain with fwd/back wt shifts w/PA glide of fibula Physical Therapy Plan Frequency and Duration Frequency of Treatment 2x/Week Duration of Treatment 2 months Plan of Care Start Date 05/17/19 Plan of Care End Date 07/17/19 Next Visit Focus/Plan Next Note Type Treatment Note Next Visit Plan Cont to progress balance and strength
--- NOTE | 2019-07-25 13:59 | PT.OPDS ---
Current Diagnoses Pain in left foot (06/23/19) Difficulty in walking, not elsewhere classified (06/23/19) Weakness (06/23/19) Contusion of left foot, initial encounter (06/23/19) Unspecified injury of left ankle, subsequent encounter (06/23/19) Visit Care Team Role Provider Type JAMIA Anthony Primary Care Provider Non-Staff Specialty: Naturopathy Address: [address] [place] [address], [id number] Email: Evelin Jacob Attending Provider Non-Staff Specialty: Medical Address: [address] [place] [address], [place], [address] Email: Visit Number Visit Number 07/05 Discharge Summary PT-OP-T Assessment and Plan Start: 05/16/19 19:02 Freq: Status: Active Protocol: Document 07/25/19 13:57 [facility] (Rec: 07/25/19 13:59 [facility] [id number]) Physical Therapy Assessment Assessment Summary Assessment Pt was making progress in ROM and overall strength and balance but was still limited in ability to participate in recreational activties and return to work without pain when last seen Jun 23. Pt was not seen over last month d/t scheduling conflicts and d/t waiting for MRI results to ensure no fractures. Pt d/c at this time d/t unemployment claims adjudicator stating case was closed. Physical Therapy Plan Discharge Physical Therapy Discharge Comments Per unemployment claims adjudicator Maco Washburn: Per MD report patient has reached MMI, and claim closed 07/07/19. Please cancel all appointments and close PT chart. No further PT authorized.
== END 2019-06-24 08:15 ==
LOC: PHYS 08:15
PROVIDERS: PCP Registered Nurse; Visit Provider Nurse Practitioner Family
DX: S99.912D Unspecified injury of left ankle, subsequent encounter (principal); S90.32XA Contusion of left foot, initial encounter; M79.672 Pain in left foot; R53.1 Weakness; R26.2 Difficulty in walking, not elsewhere classified
CPT/HCPCS: 97010; 97110; 97112; 97140; 97162

== ENCOUNTER → 2019-07-03 14:24 | Outpatient (CLI) | payer OTHER, SELFPAY ==
--- NOTE | 2019-07-03 | DI.MRI.S_ITS ---
PROCEDURE: MRFOOT LT WO CON INDICATIONS: LEFT ANKLE AND FOOT INJURY TECHNIQUE: Noncontrast sagittal T1 spin echo and T2 fast spin echo with fat saturation, long-axis T1 spin echo and T2 fast spin echo with fat saturation, short-axis T1 spin echo and T2 fast spin echo with fat saturation through the forefoot. COMPARISON: [facility], MR, MR ANKLE LT WO CON, 07/03/2019, 14:29. [facility], CR, XR ANKLE LT MIN 3V, 04/05/2019, 16:10. [facility], CR, XR FOOT LT MIN 3V, 04/05/2019, 16:10. FINDINGS: Image quality: There is mild inhomogeneous fat saturation. Bones and joints: No definite bone marrow contusions or fractures. No evidence of metatarsal stress reaction or stress fracture. There is subchondral edema at the 5th metatarsophalangeal joint compatible with mild degenerative change. There is also mild mid foot degeneration with a few scattered foci of subchondral edema. The sesamoid bones appear in expected positions, without internal edema. No metatarsophalangeal joint degeneration. No intraosseous lesions. Soft tissues: The visualized plantar foot muscles demonstrate normal signal and bulk. Visualized flexor and extensor tendons appear intact, without tenosynovitis. The distal insertions of the peroneus brevis and longus tendons appear intact. The principal Lisfranc ligament appears intact. No soft tissue ganglion cysts. There is trace intermetatarsal bursal fluid within the 1st, 2nd, and 3rd metatarsal interspaces. Sagittal images demonstrate no evidence for plantar plate tears. IMPRESSION: 1. No definite bone contusions or fractures. 2. Mild osteoarthritic changes in the midfoot and at the 5th metatarsophalangeal joint. Dictated by: Yovani Pulliam M.D. on 07/04/2019 at 14:28 Approved by: Yovani Pulliam M.D. on 07/04/2019 at 14:43
--- NOTE | 2019-07-03 | DI.MRI.S_ITS ---
PROCEDURE: MR ANKLE LT WO CON INDICATIONS: LEFT ANKLE AND FOOT INJURY TECHNIQUE: Noncontrast sagittal T1 spin echo and T2 fast spin echo with fat saturation, axial proton density fast spin echo and T2 fast spin echo with fat saturation, coronal T1 spin echo and T2 fast spin echo with fat saturation through the ankle/hindfoot. COMPARISON: [facility], MR, MR FOOT LT WO CON, 07/03/2019, 14:56. [facility], CR, XR ANKLE LT MIN 3V, 04/05/2019, 16:10. FINDINGS: Image quality: There is mild inhomogeneous fat saturation. Bones and joints: There is mild T2 hyperintensity within the medial aspect of the midfoot along the ventricular and medial cuneiform which may represent a bone contusion or possible artifact from inhomogeneous fat saturation. No fractures identified. No hindfoot coalitions. No osteochondral injuries of the talar dome. There is minimal tibiotalar joint fluid. Medial structures: The posterior tibialis, flexor digitorum longus, and flexor hallucis longus tendons are intact. The posterior tibial neurovascular bundle appears normal within the tarsal tunnel, without extrinsic mass effect. The deltoid and spring ligaments appear intact. Lateral structures: The anterior talofibular, calcaneofibular, and posterior talofibular ligaments appear intact. More superiorly, the anterior and posterior tibiofibular ligaments appear intact, as is the intermalleolar ligament. The tibiofibular syndesmosis is normal in width at 2 mm or less. The peroneus longus and brevis tendons demonstrate normal location and morphology. Adjacent bony peroneal tubercle and retrotrochlear prominence are normal in size. The sinus tarsi demonstrates normal fatty signal, without edema, fibrosis, or cyst formation. The calcaneonavicular and calcaneocuboid components of the bifurcate ligament appear intact. The dorsal calcaneocuboid ligament appears intact. Anterior structures: The tibialis anterior, extensor hallucis longus, and extensor digitorum longus tendons appear intact. The dorsal talonavicular ligament appears intact. Posterior and plantar structures: Achilles tendon is intact. There is a small focus of T2 hyperintensity in the calcaneus adjacent to its insertion which may represent focal reactive edema or ganglion formation. Medial and lateral bands of the plantar fascia are of normal thickness. No abductor digiti quinti muscle atrophy to suggest Powers neuropathy. IMPRESSION: 1. Small region of bone marrow edema along the medial dorsal aspect of the midfoot may reflect a bone contusion given history of trauma. However, the differential includes artifact from inhomogeneous fat saturation. No fractures identified. Dictated by: Yovani Pulliam M.D. on 07/04/2019 at 11:57 Approved by: Yovani Pulliam M.D. on 07/04/2019 at 12:17
== END ==
PROVIDERS: PCP Registered Nurse; Visit Provider Nurse Practitioner Family
DX: S99.922A Unspecified injury of left foot, initial encounter (principal); S99.912A Unspecified injury of left ankle, initial encounter; X58.XXXA Exposure to other specified factors, initial encounter
CPT/HCPCS: 73718; 73721

== ENCOUNTER → 2020-05-07 17:10 | Outpatient (CLI) | payer OTHER, MEDICAID, SELFPAY ==
[2020-05-07 20:05] LABS: Urine N gonorrhoeae NOT DETECTED
[2020-05-07 20:07] LABS: Urine Chlamydia NOT DETECTED
== END ==
PROVIDERS: PCP Registered Nurse; Visit Provider Nurse Practitioner
DX: N89.8 Other specified noninflammatory disorders of vagina (principal); R30.0 Dysuria
CPT/HCPCS: 87086; 87210; 87491; 87591

== ENCOUNTER 2020-07-22 19:18 | Observation (INO) | payer OTHER, MEDICAID, SELFPAY ==
[2020-07-22 19:59] LABS: WBC Urine None Seen (0-5/HPF)
[2020-07-22 20:00] LABS: Appearance Urine UA CLEAR; Bilirubin Urine UA NEGATIVE (NEGATIVE); Color Urine UA YELLOW; Glucose Urine UA NEGATIVE (Negative); Ketones Urine UA NEGATIVE (NEGATIVE); Leukocyte Esterase Urine UA NEGATIVE (NEGATIVE); Nitrite Urine UA NEGATIVE (Negative); Occult Blood Urine UA 1+ (Negative); Protein Urine UA NEGATIVE (Negative); Specific Gravity Urine UA <=1.005 (1.000-1.035); Urobilinogen Urine UA 0.2 E.U./dL (0.2)
[2020-07-22 20:06] LABS: RBC Urine 0-1/HPF (0-5/HPF)
[2020-07-22 20:07] LABS: Bacteria Urine Moderate (10-30); Culture Indicated Urine Cult Not Indicated; Squamous Epithelial Cell Urine 5-10 /HPF (0-5/HPF)
[2020-07-22] MEDS: ONDANSETRON 4 MG/2 ML INJ IV (21:07)
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
--- NOTE | 2020-07-22 21:56 | DI.US.S_ITS ---
PROCEDURE: US RENAL COMPLETE INDICATIONS: blood in urine, back pain, eval for stone TECHNIQUE: Real-time scanning was performed of the kidneys and bladder, with image documentation. COMPARISON: None. FINDINGS: Kidneys: Kidneys are normal in size. Right kidney measures 11.3 cm long; left kidney measures 13.3 cm long. Right renal cortical thickness is 1.7 cm; left renal cortical thickness is 2.0 cm. Renal cortical echotexture is normal. There is [id number] right-sided hydronephrosis and mild left-sided hydronephrosis, and no nephrolithiasis. No suspicious solid mass lesions. Bladder: Pre-void images demonstrate no intraluminal masses or stones. On pre-void images, bilateral ureteral jets are noted with color Doppler interrogation. (Of note, ureteral jets may not be detectable in up to 25% of cases due to insufficient differences in specific gravity between ureteral and bladder urine). Miscellaneous: No free pelvic fluid. IMPRESSION: Asymmetric mild hydronephrosis overall, right greater than left, no urinary tract stone is found. Dictated by: Harry Marino M.D. on 07/23/2020 at 8:28 Approved by: Harry Marino M.D. on 07/23/2020 at 8:30
[2020-07-22] MEDS: LACTATED RINGERS 1,000 ML 100 ML IV (22:42)
[2020-07-22 22:45] VITALS: TEMP 36.4
[2020-07-22] MEDS: ACETAMINOPHEN 325 MG TABLET 1000 MG PO (22:45)
--- NOTE | 2020-07-22 23:15 | DI.US.S_ITS ---
PROCEDURE: US OB LIMITED INDICATIONS: cervical length FINDINGS: Limited evaluation for cervical length only was requested by the ordering healthcare provider. Cervical length is 4.4 cm. No funneling. Note is made of a twin gestation, each twin viable with cardiac activity seen for both. IMPRESSION: Viable twin intrauterine gestation, normal cervical length and morphology. Dictated by: Harry Marino M.D. on 07/23/2020 at 8:30 Approved by: Harry Marino M.D. on 07/23/2020 at 8:31
[2020-07-22] MEDS: NIFEdipine 10 MG CAPSULE PO (23:40)
[2020-07-23] MEDS: NIFEdipine 10 MG CAPSULE PO ×3 (00:05→00:45)
== END 2020-07-23 01:30 | disposition home or self-care (01) ==
PROVIDERS: Admitting Provider Family Medicine; PCP Registered Nurse; Referring Provider Family Medicine; Visit Provider Family Medicine
DX: O47.02 False labor before 37 completed weeks of gestation, second trimester (principal); O30.042 Twin pregnancy, dichorionic/diamniotic, second trimester; O21.9 Vomiting of pregnancy, unspecified; Z3A.19 19 weeks gestation of pregnancy; M54.5 Low back pain
CPT/HCPCS: 36415; 59050; 76770; 76815; 81001; 96360; 96361; G0378; G0379; J2405

== ENCOUNTER → 2020-07-28 11:24 | Outpatient (RCR) | payer OTHER, MEDICAID, SELFPAY ==
[2020-07-28] MEDS: ONDANSETRON 4 MG/2 ML INJ IV (11:49)
[2020-07-28] MEDS: LACTATED RINGERS 1,000 ML 1000 ML IV (11:49)
[2020-07-28 12:05] VITALS: BP 101/64; PULSE 77; RESP 20; TEMP 36.8; O2SAT 99
== END ==
LOC: INF 11:24
PROVIDERS: PCP Registered Nurse; Referring Provider Obstetrics & Gynecology; Visit Provider Obstetrics & Gynecology
DX: O21.8 Other vomiting complicating pregnancy (principal); E86.0 Dehydration; O30.042 Twin pregnancy, dichorionic/diamniotic, second trimester; Z3A.19 19 weeks gestation of pregnancy; M54.5 Low back pain
CPT/HCPCS: J2405

== ENCOUNTER 2020-08-02 16:29 | Observation (INO) | payer OTHER, MEDICAID, SELFPAY ==
[2020-08-02 17:22] LABS: COVID19 -Nasal RAPID POSITIVE (Negative)
[2020-08-02] MEDS: LACTATED RINGERS 1,000 ML 1000 ML IV (18:45)
[2020-08-02] MEDS: NIFEdipine 10 MG CAPSULE PO ×4 (19:45→20:42)
== END 2020-08-02 20:45 | disposition home or self-care (01) ==
PROVIDERS: Admitting Provider Obstetrics & Gynecology; PCP Registered Nurse; Referring Provider Obstetrics & Gynecology; Visit Provider Obstetrics & Gynecology
DX: O30.042 Twin pregnancy, dichorionic/diamniotic, second trimester (principal); O47.02 False labor before 37 completed weeks of gestation, second trimester; U07.1 COVID-19; Z3A.20 20 weeks gestation of pregnancy
CPT/HCPCS: 59050; 87635; 96360; G0378; G0379

== ENCOUNTER 2020-08-08 16:59 | Emergency (ER) | payer OTHER, MEDICAID, SELFPAY ==
[2020-08-08 17:10] VITALS: BP 141/76; PULSE 96; RESP 15; TEMP 37.1; O2SAT 100; BMI 22.4
[2020-08-08 17:18] VITALS: BP 141/76; PULSE 93; RESP 16; TEMP 37.1; O2SAT 99
--- NOTE | 2020-08-08 17:41 | ED_ITS ---
HPI - General Chief complaint: OB/Uterine Contractions Stated complaint: COVID+ X3 wks, 21 wks preg, Dr. Smith sent to ER Time Seen by Provider: 08/08/20 17:05 Source: patient Mode of arrival: Ambulatory Limitations: no limitations History of Present Illness HPI Narrative: 24-year-old female comes to the emergency department she is 21 weeks with her 2nd set of twins. Her 1st delivery of twins she completed to 35 weeks. She was seen in Labor and delivery a week ago with contractions and started on nifedipine. She states since then she has had fast heartbeat, felt short of breath and had swelling in her lower extremities. She states that started initially when she 1st took 4 tablets of the medication and she has been taking it twice daily since. She has had some spotting with very small amount of bright red blood when she wiped 3 times total. She has not had fluid leakage. And she had some mild abdominal contractions. Patient was COVID positive 3 weeks ago she had runny nose, cough and shortness of breath. She states she still has little bit of runny nose and cough but otherwise has been improving. She was told to come until she had a negative COVID test they do not want her in labor delivery at this point. Patient denies any other medical issues. Denies prior surgeries. No tobacco, alcohol or illicit. 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 Patient : Yes Related Data Home Medications Medication Instructions Recorded Confirmed calcium carbonate 300 mg (750 mg) 300 mg PO BID 07/10/20 08/02/20 chewable tablet cranberry extract 50 mg chewable 50 mg PO DAILY 07/10/20 08/02/20 tablet prenat.vits,isaura,ilz-coax-expcx 1 tab PO DAILY 07/10/20 08/02/20 sertraline 25 mg tablet 25 mg PO DAILY 07/10/20 08/02/20 Previous Rx's Medication Instructions Recorded ondansetron 4 mg disintegrating 4 mg PO Q6H PRN #20 tab 07/23/20 tablet albuterol sulfate 90 mcg/actuation 1 puff INHALATION Q4-6H PRN #8.5 g 07/27/20 aerosol inhaler nifedipine 30 mg tablet,extended 30 mg PO BID #60 tab 08/03/20 release Allergies Allergy/AdvReac Type Severity Reaction Status Date / Time latex AdvReac Mild Rash when Verified 08/08/20 17:20 using latex gloves. Review of Systems Review of Systems ROS Unobtainable: All systems reviewed & are unremarkable except as noted in HPI and below PMFSH - Past Medical History Medical history: Reports no medical history Surgical history: Reports no surgical history Patient : Yes Exam Narrative Exam Narrative: GENERAL: Alert and oriented x three, thin, well-appearing female in mild distress. HEENT: Head normocephalic, atraumatic, EOMI, pupils reactive, face symmetric, moist mucous membranes NECK: Supple, full range of motion CARDIOVASCULAR: Regular rate and rhythm without murmurs, rubs or gallops. RESPIRATORY: Breath sounds equal bilaterally, no wheezes rales or rhonchi. ABDOMEN: Soft, nontender. Gravid. Normoactive bowel sounds all 4 quadrants. No guarding or rebound, rigidity, no mass : No CVA tenderness EXTREMITIES: Normal range of motion, no clubbing or edema. Neurovascularly intact NEUROLOGICAL: Cranial nerves II through XII grossly intact. Moving all extremities SKIN: Warm, dry, no petechiae, no rashes or lesions. Initial Vital Signs Initial Vital Signs: Vital Signs Temperature 98.7 F 08/08/20 17:10 Pulse Rate 96 H 08/08/20 17:10 Respiratory Rate 15 08/08/20 17:10 Blood Pressure 141/76 H 08/08/20 17:10 Pulse Oximetry 100 08/08/20 17:10 Course Orders Ordered: ED Orders 08/08/20 17:15 COVID19 Stat 08/08/20 17:47 ABO RH Type Stat Complete Blood Count AUTO DIFF Stat Comprehensive Metabolic Panel Stat HCG Quantitative /Beta subunit Stat Partial Thromboplastin Time Stat Prothrombin Time INR Stat Discontinued Medications Sodium Chloride (Normal Saline 0.9%) 1,000 mls @ 1,000 mls/hr IV BOLUS ONE Stop: 08/08/20 18:40 Last Admin: 08/08/20 17:56 Dose: 1,000 mls/hr Documented by: HORACE Nifedipine (Nifedipine 30 Mg Tab Er) 30 mg PO NOW ONE Stop: 08/08/20 18:41 Last Admin: 08/08/20 18:47 Dose: 30 mg Documented by: HORACE Vital Signs Vital signs: Vital Signs - 8 hr 08/08/20 17:10 08/08/20 17:18 08/08/20 18:38 Temperature 98.7 F 98.7 F Pulse Rate 96 H 93 H 79 Respiratory Rate 15 16 16 Blood Pressure 141/76 H 141/76 H 105/62 Pulse Oximetry 100 99 99 MDM - OB/Uterine Contractions Lab Data Attestation: I reviewed the patient's lab results. Result diagrams: 08/08/20 17:47 08/08/20 17:47 Labs: Lab Results 08/08/20 08/08/20 08/08/20 Range/Units 17:15 17:47 17:47 WBC 12.7 H (4.5-11.0) X10^3/uL RBC 3.67 L (4.0-5.2) X10^6/uL Hgb 11.0 L (12.0-16.0) g/dL Hct 31.6 L (36-46) % MCV 86.1 (80-100) fL MCH 29.9 (26-34) PG MCHC 34.8 (30-36) % RDW 13.8 (11.6-14.8) % Plt Count 350 (150-400) X10^3/uL Neut % (Auto) 79.5 H (50-75) % Lymph % (Auto) 13.3 L (25-40) % [place] % (Auto) 5.2 (3-14) % Eos % (Auto) 1.0 L (2-4) % Baso % (Auto) 1.0 (0-2) % Neut # (Auto) 93269 H (5836-9459) /uL Lymph # (Auto) 1700 (9103-3305) /uL [place] # (Auto) 700 (0-900) /uL Eos # (Auto) 100 (0-450) /uL Baso # (Auto) 100 (0-100) /uL PT 11.7 (10.1-12.7) SECONDS INR 1.0 (0.9-1.3) APTT 27 (26.4-36.2) SECONDS Sodium (137-145) mmol/L Potassium (3.4-5.1) mmol/L Chloride (98-107) mmol/L Carbon Dioxide (22-32) mmol/L BUN (7-17) mg/dL Creatinine (0.52-1.04) mg/dL Estimated GFR (>60) mL/min BUN/Creatinine Ratio (6-22) Glucose (70-100) mg/dL Calcium (8.4-10.2) mg/dL Total Bilirubin (0.2-1.3) mg/dL AST (14-36) IU/L ALT (<35) IU/L Alkaline Phosphatase (38-126) U/L Total Protein (6.3-8.2) g/dL Albumin (3.5-5.0) g/dL Globulin (1.7-4.1) g/dL Albumin/Globulin Ratio (1.0-2.8) HCG, Quant mIU/mL COVID-19 PCR Negative (Negative) Blood Type 08/08/20 08/08/20 Range/Units 17:47 17:47 WBC (4.5-11.0) X10^3/uL RBC (4.0-5.2) X10^6/uL Hgb (12.0-16.0) g/dL Hct (36-46) % MCV (80-100) fL MCH (26-34) PG MCHC (30-36) % RDW (11.6-14.8) % Plt Count (150-400) X10^3/uL Neut % (Auto) (50-75) % Lymph % (Auto) (25-40) % [place] % (Auto) (3-14) % Eos % (Auto) (2-4) % Baso % (Auto) (0-2) % Neut # (Auto) (6502-5448) /uL Lymph # (Auto) (7795-2508) /uL [place] # (Auto) (0-900) /uL Eos # (Auto) (0-450) /uL Baso # (Auto) (0-100) /uL PT (10.1-12.7) SECONDS INR (0.9-1.3) APTT (26.4-36.2) SECONDS Sodium 135 L (137-145) mmol/L Potassium 3.5 (3.4-5.1) mmol/L Chloride 104 (98-107) mmol/L Carbon Dioxide 25 (22-32) mmol/L BUN 10 (7-17) mg/dL Creatinine 0.43 L (0.52-1.04) mg/dL Estimated GFR > 60.0 (>60) mL/min BUN/Creatinine Ratio 23.3 H (6-22) Glucose 106 H (70-100) mg/dL Calcium 9.7 (8.4-10.2) mg/dL Total Bilirubin 0.3 (0.2-1.3) mg/dL AST 21 (14-36) IU/L ALT 12 (<35) IU/L Alkaline Phosphatase 69 (38-126) U/L Total Protein 7.0 (6.3-8.2) g/dL Albumin 4.0 (3.5-5.0) g/dL Globulin 3.0 (1.7-4.1) g/dL Albumin/Globulin Ratio 1.3 (1.0-2.8) HCG, Quant 25355 mIU/mL COVID-19 PCR (Negative) Blood Type O Positive Urine Dip Bedside Urine Glucose Negative Bedside Urine Bilirubin - Negative Bedside Urine Ketone - Negative Urine Specific [place] 1.020 Bedside Urine Occult Blood - Negative Bedside Urine pH 6 Bedside Urine Protein - Negative Bedside Urine Urobilinogen - Negative Bedside Urine Nitrite - Negative Bedside Urine Leukocytes - Negative Esterase MDM Narrative Medical decision making narrative: Patient labs show no major abnormalities. Vitals appropriate. Patient covid swab is negative. She continues to have contractions and L&D was contacted to have NST and evaluation. They did not want patient in L&D unless negative covid. Delay in NST in emergency department as they are currently delivering a patient and only have 1 nurse available. Patient sent to L&D. She was given her home dose of nifedipine. Discharge Plan Departure Patient Disposition: Released, Other Clinical Impression: Swelling of both lower extremities, Uterine contractions Activity Restrictions/Additional Instructions: Go to L&D for evaluation. Prescriptions: No Action ondansetron 4 mg tablet,disintegrating 4 mg PO Q6H PRN (Reason: nausea and vomiting) Qty: 20 RF: 2 albuterol sulfate 90 mcg/actuation HFA aerosol inhaler 1 puff inhalation Q4-6H PRN (Reason: shortness of breath or wheezing) Qty: 8.5 RF: 3 nifedipine 30 mg tablet extended release 30 mg PO BID Qty: 60 RF: 3 prenat.vits,isaura,rzm-oqzb-qrhcy Tablet 1 tab PO DAILY RF: 0 sertraline 25 mg tablet 25 mg PO DAILY RF: 0 cranberry extract 50 mg tablet,chewable 50 mg PO DAILY RF: 0 calcium carbonate [Tums] 300 mg (750 mg) tablet,chewable 300 mg PO BID RF: 0 Referrals: Talha Madrigal ARNP [Primary Care Provider] -
[2020-08-08 17:47] LABS: COVID19 -Nasal RAPID Negative (Negative)
[2020-08-08] MEDS: SODIUM CHLORIDE 0.9% 1,000 ML 1000 ML IV (17:56)
[2020-08-08 18:00] LABS: Add Manual Diff / Slide Review NO; Basophils Absolute Auto 100 /uL (0-100); Eosinophils Absolute Auto 100 /uL (0-450); Hematocrit 31.6 % (36-46); Lymphocytes Absolute Auto 1700 /uL (1100-4500); Lymphocytes Percent Auto 13.3 % (25-40); Mean Corpuscular HGB Conc 34.8 % (30-36); Mean Corpuscular Hemoglobin 29.9 PG (26-34); Mean Corpuscular Volume 86.1 fL (80-100); Monocytes Absolute Auto 700 /uL (0-900); Monocytes Percent Auto 5.2 % (3-14); Neutrophils Absolute Auto 10100 /uL (1500-7000); Neutrophils Percent Auto 79.5 % (50-75); Platelet Count 350 X10^3/uL (150-400); Red Blood Cell Count 3.67 X10^6/uL (4.0-5.2); Red Cell Distribution Width 13.8 % (11.6-14.8); White Blood Cell Count 12.7 X10^3/uL (4.5-11.0)
[2020-08-08 18:18] LABS: Alanine Aminotransferase 12 IU/L (<35); Albumin Globulin Ratio 1.3 (1.0-2.8); Alkaline Phosphatase 69 U/L (38-126); Aspartate Aminotransferase 21 IU/L (14-36); BUN Creatinine Ratio 23.3 (6-22); Bilirubin Total 0.3 mg/dL (0.2-1.3); Blood Urea Nitrogen 10 mg/dL (7-17); Calcium 9.7 mg/dL (8.4-10.2); Carbon Dioxide 25 mmol/L (22-32); Chloride 104 mmol/L (98-107); Estimated Glomerular Filt Rate > 60.0 mL/min (>60); Glucose 106 mg/dL (70-100); HEMOLYSIS < 15 (0-50); Potassium 3.5 mmol/L (3.4-5.1); Sodium 135 mmol/L (137-145)
[2020-08-08 18:37] LABS: Prothrombin Time 11.7 SECONDS (10.1-12.7)
[2020-08-08 18:38] VITALS: BP 105/62; PULSE 79; RESP 16; O2SAT 99
[2020-08-08 18:40] LABS: PTT Partial Thromboplastin Tim 27 SECONDS (26.4-36.2)
[2020-08-08] MEDS: NIFEdipine 30 MG TAB ER PO (18:47)
[2020-08-08 18:57] LABS: HCG Quantitative /Beta subunit 15754 mIU/mL
--- NOTE | 2020-08-22 10:09 | PC.NURSE ---
stop time for NS IV 1000ML is 1855 on 08/08/2020
== END 2020-08-08 19:02 | disposition home or self-care (01) ==
PROVIDERS: Emergency Provider Emergency Medicine; PCP Registered Nurse
DX: O47.02 False labor before 37 completed weeks of gestation, second trimester (principal); O30.002 Twin pregnancy, unspecified number of placenta and unspecified number of amniotic sacs, second trimester; R22.43 Localized swelling, mass and lump, lower limb, bilateral; R06.02 Shortness of breath; R00.0 Tachycardia, unspecified; Z86.19 Personal history of other infectious and parasitic diseases; Z3A.21 21 weeks gestation of pregnancy; Z20.828 Contact with and (suspected) exposure to other viral communicable diseases
CPT/HCPCS: 36415; 59025; 80053; 81003; 84702; 85025; 85610; 85730; 86900; 86901; 87635; 96360; 96361; 99281; 99284

== ENCOUNTER 2020-08-08 19:15 | Outpatient (CLI) | payer OTHER, MEDICAID, SELFPAY | END 2020-08-08 19:45 | disposition home or self-care (01) | LOC: OB 08-09 08:29 | PROVIDERS: PCP Registered Nurse; Referring Provider Family Medicine; Visit Provider Family Medicine | DX: O47.02 False labor before 37 completed weeks of gestation, second trimester (principal); Z3A.21 21 weeks gestation of pregnancy; O30.002 Twin pregnancy, unspecified number of placenta and unspecified number of amniotic sacs, second trimester | CPT/HCPCS: 59025; G0378; G0379 ==

== ENCOUNTER → 2020-08-14 14:08 | Outpatient (CLI) | payer OTHER, MEDICAID, SELFPAY ==
--- NOTE | 2020-08-14 14:10 | DI.US.S_ITS ---
PROCEDURE: US OB >= 14 WK FETUS ADD GEST INDICATIONS: Anatomy scan OUTSIDE/PRIOR DATING DATA: Last menstrual period (LMP): 03/09/2020. LMP-based estimated date of delivery (DIANE): 12/14/2020 . First dating scan (date and location): 05/10/2020 . Estimated date of delivery (DIANE) from first dating scan: 12/15/2020 . TECHNIQUE: Real-time scanning was performed of the fetuses, with image documentation and biometric measurements. Endovaginal scanning: No COMPARISON: [facility], , OB >= 14 WEEKS FETUS, 08/13/2020, 16:56. FINDINGS: General: An intrauterine dichorionic-diamniotic twin is present, as evidenced by separate placentas, differing sexes, or an intervening membrane of greater than 2 mm. Composite amniotic fluid index: Not measured. Maternal cervical canal: 4.0 cm long. Normal lower limit is 2.5 cm. FETUS A: Fetus is located on the maternal right side, and is in vertex presentation. Largest amniotic fluid pocket: 4.7 cm, normal is 2-8 cm. Placental position is anterior , without previa. heart rate: 141 beats per minute. biometrics: Biparietal diameter: 23 weeks 5 days Head circumference: 23 week Abdominal circumference: 22 weeks Femur length: 20 weeks 6 days Estimated gestational age from initial scan: 22 weeks 3 days Composite gestational age from present scan: 22 weeks 3 days Estimated weight and percentile: 446 g; 15 percentile Measurement variability for biometric dating: +/- 7 days from 14 weeks to 15 weeks 6 days gestation, +/- 10 days from 16 weeks to 21 weeks 6 days gestation, +/- 2 weeks from 22 weeks to 27 weeks 6 days gestation, +/- 3 weeks for 28 weeks gestation or later. weight reference: 4500 g or EFW >90/95% is considered macrosomia or large for gestational age. EFW <10% is small for gestational age. EFW 5% or less is considered intra-uterine growth restriction. Normal appearance of the ventricles, choroid plexus, posterior fossa, face, nuchal region, spine, four-chamber heart and cardiac outflow tracts, chest/diaphragm, stomach/abdomen, kidneys, and placental cord insertion site, urinary bladder as well as the right and left upper lower extremities. FETUS B: Fetus is located on the maternal left side, and is in transverse to vertex presentation. Largest amniotic fluid pocket: 4.9 cm, normal is 2-8 cm. Placental position is anterior, without previa. heart rate: 145 beats per minute. biometrics: Biparietal diameter: 23 weeks 0 days Head circumference: 22 weeks 1 day Abdominal circumference: 22 weeks 1 day Femur length: 21 weeks 0 days Estimated gestational age from initial scan: 22 weeks 3 days Composite gestational age from present scan: 22 weeks 1 day Estimated weight and percentile: 446 g; 15 percentile Measurement variability for biometric dating: +/- 7 days from 14 weeks to 15 weeks 6 days gestation, +/- 10 days from 16 weeks to 21 weeks 6 days gestation, +/- 2 weeks from 22 weeks to 27 weeks 6 days gestation, +/- 3 weeks for 28 weeks gestation or later. weight reference: 4500 g or EFW >90/95% is considered macrosomia or large for gestational age. EFW <10% is small for gestational age. EFW 5% or less is considered intra-uterine growth restriction. Normal appearance of the ventricles, choroid plexus, posterior fossa, face, nuchal region, spine, four-chamber heart and cardiac outflow tracts, chest/diaphragm, stomach/abdomen, kidneys, and placental cord insertion site, urinary bladder as well as the right and left upper lower extremities. IMPRESSION: 1. Living twin gestation redemonstrated and interval growth is within normal limits for both fetus A and fetus B with DIANE of 12/15/2020. Of note, the femoral length is at the 4th percentile for fetus A and 6 percentile for fetus B. 2. Normal anatomic survey for fetus A and fetus B. Dictated by: Tino Rosas [facility] Interpreted: Harry Marino MD on 08/15/2020 at 8:41 Approved by: Harry Marino M.D. on 08/15/2020 at 12:03
== END ==
PROVIDERS: PCP Registered Nurse; Referring Provider Obstetrics & Gynecology; Visit Provider Obstetrics & Gynecology
DX: O30.042 Twin pregnancy, dichorionic/diamniotic, second trimester (principal); Z3A.20 20 weeks gestation of pregnancy
CPT/HCPCS: 76811; 76812

== ENCOUNTER 2020-08-22 13:49 | Observation (INO) | payer OTHER, MEDICAID, SELFPAY ==
[2020-08-22] MEDS: LACTATED RINGERS 1,000 ML 1000 ML IV (15:05)
[2020-08-22] MEDS: NIFEdipine 10 MG CAPSULE PO ×4 (15:08→16:07)
[2020-08-22] MEDS: INDOMETHACIN 25 MG CAPSULE 50 MG PO (16:22)
--- NOTE | 2020-08-22 16:37 | DI.US.S_ITS ---
PROCEDURE: US OB LIMITED INDICATIONS: Pre term labor check cervical length-- twins- 23weeks OUTSIDE/PRIOR DATING DATA: Last menstrual period (LMP): 03/09/2020. LMP-based estimated date of delivery (DIANE): 12/14/2020. First dating scan (date and location): 05/10/2020. Estimated date of delivery (DIANE) from first dating scan: 12/16/2019. TECHNIQUE: Real-time scanning was performed of the fetuses. Endovaginal scanning: Not performed COMPARISON: [facility], US OB LIMITED, 07/22/2020, 23:48. FINDINGS: General: An intrauterine dichorionic-diamniotic twin is present. Maternal cervical canal: 4.2 cm long. Normal lower limit is 2.5 cm. FETUS A: Fetus is located on the maternal right side. Largest amniotic fluid pocket: 6.3 cm, normal is 2-8 cm. heart rate: 147 beats per minute. FETUS B: Fetus is located on the maternal left side. Largest amniotic fluid pocket: 5.2 cm, normal is 2-8 cm. heart rate: 144 beats per minute. IMPRESSION: 1. Viable twin intrauterine gestation. 2. Normal cervical length. Dictated by: Elvis Shore M.D. on 08/22/2020 at 17:40 Approved by: Elvis Shore M.D. on 08/22/2020 at 17:44
[2020-08-22 18:26] LABS: Fetal Fibronectin Negative
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
== END 2020-08-22 18:40 | disposition home or self-care (01) ==
PROVIDERS: Specialist; Admitting Provider Obstetrics & Gynecology; PCP Registered Nurse; Referring Provider Obstetrics & Gynecology; Visit Provider Obstetrics & Gynecology
DX: O47.02 False labor before 37 completed weeks of gestation, second trimester (principal); O30.042 Twin pregnancy, dichorionic/diamniotic, second trimester; Z3A.23 23 weeks gestation of pregnancy
CPT/HCPCS: 36415; 59025; 59050; 76815; 82731; 96361; G0378; G0379

== ENCOUNTER 2020-09-03 13:36 | Outpatient (CLI) | payer OTHER, MEDICAID, SELFPAY ==
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
[2020-09-03 14:54] LABS: Appearance Urine UA CLEAR; Bilirubin Urine UA NEGATIVE (NEGATIVE); Color Urine UA YELLOW; Glucose Urine UA TRACE g/dL (Negative); Ketones Urine UA NEGATIVE (NEGATIVE); Leukocyte Esterase Urine UA NEGATIVE (NEGATIVE); Nitrite Urine UA NEGATIVE (Negative); Occult Blood Urine UA NEGATIVE (Negative); Protein Urine UA NEGATIVE (Negative); Urobilinogen Urine UA 0.2 E.U./dL (0.2)
[2020-09-03 15:22] LABS: pH Urine UA 6.5 (4.5-8.0)
== END 2020-09-03 14:51 | disposition home or self-care (01) ==
LOC: LABOR 13:39 → OB 09-04 09:01
PROVIDERS: PCP Registered Nurse; Referring Provider Obstetrics & Gynecology; Visit Provider Obstetrics & Gynecology
DX: O30.042 Twin pregnancy, dichorionic/diamniotic, second trimester (principal); O47.02 False labor before 37 completed weeks of gestation, second trimester; N89.8 Other specified noninflammatory disorders of vagina; Z3A.25 25 weeks gestation of pregnancy
CPT/HCPCS: 59025; 81003; 84112; G0378; G0379

== ENCOUNTER → 2020-09-11 13:00 | Outpatient (CLI) | payer OTHER, MEDICAID, SELFPAY ==
[2020-09-11 15:36] LABS: Hematocrit 26.4 % (36-46); Hemoglobin 9.3 g/dL (12.0-16.0)
[2020-09-11 16:02] LABS: GTT (PREG) 1 Hour PP 50gm Dose 122 mg/dL (76-139)
== END ==
PROVIDERS: PCP Registered Nurse; Referring Provider Obstetrics & Gynecology; Visit Provider Obstetrics & Gynecology
DX: Z34.82 Encounter for supervision of other normal pregnancy, second trimester (principal); Z3A.26 26 weeks gestation of pregnancy
CPT/HCPCS: 36415; 82950; 85014; 85018

== ENCOUNTER 2020-09-22 19:15 | Observation (INO) | payer OTHER, MEDICAID, SELFPAY ==
[2020-09-22] MEDS: NIFEdipine 10 MG CAPSULE PO ×4 (20:27→21:26)
[2020-09-22 20:33] LABS: Bacteria Urine None Seen; RBC Urine None Seen (0-5/HPF); WBC Urine None Seen (0-5/HPF)
[2020-09-22 20:34] LABS: Appearance Urine UA TURBID; Bilirubin Urine UA NEGATIVE (NEGATIVE); Color Urine UA YELLOW; Glucose Urine UA TRACE g/dL (Negative); Ketones Urine UA NEGATIVE (NEGATIVE); Leukocyte Esterase Urine UA NEGATIVE (NEGATIVE); Nitrite Urine UA NEGATIVE (Negative); Occult Blood Urine UA NEGATIVE (Negative); Protein Urine UA NEGATIVE (Negative); Specific Gravity Urine UA 1.015 (1.000-1.035); Urobilinogen Urine UA 0.2 E.U./dL (0.2)
[2020-09-22 20:44] LABS: pH Urine UA 7.5 (4.5-8.0)
[2020-09-22 20:45] LABS: Amorphous Sediment Urine 4+; Culture Indicated Urine Cult Not Indicated; Squamous Epithelial Cell Urine 0-1 /HPF (0-5/HPF)
[2020-09-22 21:00] LABS: Fetal Fibronectin Negative
[2020-09-22] MEDS: NIFEdipine 30 MG TAB ER PO (21:00)
== END 2020-09-22 22:10 | disposition home or self-care (01) ==
PROVIDERS: Admitting Provider Obstetrics & Gynecology; PCP Registered Nurse; Referring Provider Obstetrics & Gynecology; Visit Provider Obstetrics & Gynecology
DX: O30.043 Twin pregnancy, dichorionic/diamniotic, third trimester (principal); O47.03 False labor before 37 completed weeks of gestation, third trimester; Z3A.28 28 weeks gestation of pregnancy
CPT/HCPCS: 59025; 59050; 81001; 82731; G0378; G0379

== ENCOUNTER 2020-10-03 17:01 | Observation (INO) | payer OTHER, MEDICAID, SELFPAY ==
[2020-10-03] MEDS: NIFEdipine 10 MG CAPSULE PO ×4 (18:05→19:08)
== END 2020-10-03 19:46 | disposition home or self-care (01) ==
LOC: LABOR 17:03
PROVIDERS: Admitting Provider Obstetrics & Gynecology; PCP Registered Nurse; Referring Provider Obstetrics & Gynecology; Visit Provider Obstetrics & Gynecology
DX: O47.03 False labor before 37 completed weeks of gestation, third trimester (principal); O30.003 Twin pregnancy, unspecified number of placenta and unspecified number of amniotic sacs, third trimester; O36.8132 Decreased fetal movements, third trimester, fetus 2; Z3A.29 29 weeks gestation of pregnancy
CPT/HCPCS: 59050; G0378; G0379

== ENCOUNTER 2020-10-09 15:06 | Observation (INO) | payer OTHER, MEDICAID, SELFPAY ==
--- NOTE | 2020-10-09 16:03 | DI.US.S_ITS ---
PROCEDURE: US OB LIMITED INDICATIONS: CONTRACTIONS OUTSIDE/PRIOR DATING DATA: Last menstrual period (LMP): 03/09/20 . LMP-based estimated date of delivery (DIANE): 12/14/20 . First dating scan (date and location): 05/10/20 Estimated date of delivery (DIANE) from first dating scan: 12/15/20 . TECHNIQUE: Real-time scanning was performed of the fetuses, with image documentation and biometric measurements. Endovaginal scanning: Performed for further cervical detail. COMPARISON: [facility], OB LIMITED, 08/22/2020, 17:06. FINDINGS: General: An intrauterine dichorionic-diamniotic twin is present. Fetus a is in vertex presentation with a heart rate of 147 beats per minute. Fetus B is transverse with head to the maternal left and has a heart rate of 152 beats per minute. The cervix is closed and measures 3.6 cm in length. IMPRESSION: 1. Viable twin intrauterine . 2. Closed cervix has a length of 3.6 cm, within normal limits. Dictated by: Danya Powers M.D. on 10/09/2020 at 16:56 Approved by: Danya Powers M.D. on 10/09/2020 at 17:01
[2020-10-09] MEDS: NIFEdipine 10 MG CAPSULE PO ×4 (16:14→17:15)
== END 2020-10-09 17:50 | disposition home or self-care (01) ==
PROVIDERS: Admitting Provider Obstetrics & Gynecology; PCP Registered Nurse; Referring Provider Obstetrics & Gynecology; Visit Provider Obstetrics & Gynecology
DX: O47.03 False labor before 37 completed weeks of gestation, third trimester (principal); O30.003 Twin pregnancy, unspecified number of placenta and unspecified number of amniotic sacs, third trimester; Z3A.30 30 weeks gestation of pregnancy
CPT/HCPCS: 59050; 76812; 76815; 76830; G0378; G0379

== ENCOUNTER 2020-10-22 11:09 | Observation (INO) | payer OTHER, MEDICAID, SELFPAY ==
[2020-10-22] MEDS: LACTATED RINGERS 1,000 ML 1000 ML IV (11:50)
--- NOTE | 2020-10-22 12:41 | DI.US.S_ITS ---
PROCEDURE: US OB LIMITED INDICATIONS: Cervical length OUTSIDE/PRIOR DATING DATA: Last menstrual period (LMP): 03/09/20 . LMP-based estimated date of delivery (DIANE): 12/14/20 . First dating scan (date and location): 05/10/20 . Estimated date of delivery (DIANE) from first dating scan: 12/15/20 . TECHNIQUE: Real-time scanning was performed of the fetus, with image documentation. Endovaginal scanning: Performed COMPARISON: [facility] PELVIC COMPLETE, 10/03/2020, 16:39. [facility] OB >= 14 WEEKS FETUS, 09/19/2020, 16:23. [facility] OB >= 14 WEEKS FETUS, 08/29/2020, 16:52. [facility] OB LIMITED, 08/22/2020, 17:06. [facility] OB >= 14 WK FETUS ADD GEST, 08/14/2020, 14:29. [facility] OB >= 14 WEEKS FETUS, 08/13/2020, 16:56. [facility] OB >= 14 WEEKS FETUS, 08/02/2020, 16:08. [facility] OB LIMITED, 07/22/2020, 23:48. [facility] RENAL COMPLETE, 07/22/2020, 22:28. [facility] OB >= 14 WEEKS FETUS, 07/12/2020, 15:01. Outside Facility, [facility] OB TWIN DETAILED ANATOMY, 07/10/2020, 8:00. [facility] OB LIMITED, 07/02/2020, 14:50. [facility] OB < 14 WEEKS + TWINS + TRANSVAG, 05/10/2020, 15:24. [facility] OB LIMITED, 10/09/2020, 16:20. FINDINGS: Twin living intrauterine gestation. Presentation: Fetus A in vertex presentation, fetus B in transverse presentation heart rate: Fetus A 140 beats per minute. Fetus B 153 beats per minute. Maternal cervical canal: 3.5 cm long. Normal lower limit is 2.5 cm. Estimated gestational age from initial scan: 32 weeks 2 days . IMPRESSION: Twin living intrauterine gestation. Normal cervical length as above Dictated by: Adrian Gabriel M.D. on 10/22/2020 at 14:25 Approved by: Adrian Gabriel M.D. on 10/22/2020 at 14:28
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
== END 2020-10-22 13:40 | disposition home or self-care (01) ==
PROVIDERS: Admitting Provider Obstetrics & Gynecology; PCP Registered Nurse; Referring Provider Obstetrics & Gynecology; Visit Provider Obstetrics & Gynecology
DX: O47.03 False labor before 37 completed weeks of gestation, third trimester (principal); O30.043 Twin pregnancy, dichorionic/diamniotic, third trimester; R19.7 Diarrhea, unspecified; Z3A.32 32 weeks gestation of pregnancy
CPT/HCPCS: 59025; 59050; 76815; 76817; 96360; G0378; G0379

== ENCOUNTER 2020-10-31 13:58 | Outpatient (CLI) | payer OTHER, MEDICAID, SELFPAY ==
[2020-10-31] MEDS: NIFEdipine 10 MG CAPSULE PO ×4 (15:14→16:15)
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
== END 2020-10-31 16:45 | disposition home or self-care (01) ==
LOC: LABOR 14:14 → OB 11-01 07:17
PROVIDERS: PCP Registered Nurse; Referring Provider Obstetrics & Gynecology; Visit Provider Obstetrics & Gynecology
DX: O47.03 False labor before 37 completed weeks of gestation, third trimester (principal); O30.043 Twin pregnancy, dichorionic/diamniotic, third trimester; Z3A.33 33 weeks gestation of pregnancy
CPT/HCPCS: 59025; 59050; G0378; G0379

== ENCOUNTER 2020-11-08 15:19 | Outpatient (CLI) | payer OTHER, MEDICAID, SELFPAY ==
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
== END 2020-11-08 15:55 | disposition home or self-care (01) ==
LOC: LABOR 15:21 → OB 11-09 10:41
PROVIDERS: PCP Registered Nurse; Referring Provider Obstetrics & Gynecology; Visit Provider Obstetrics & Gynecology
DX: O30.043 Twin pregnancy, dichorionic/diamniotic, third trimester (principal); Z3A.34 34 weeks gestation of pregnancy
CPT/HCPCS: 59025; G0378; G0379

== ENCOUNTER 2020-11-11 12:03 | Observation (INO) | payer OTHER, MEDICAID, SELFPAY ==
[2020-11-11] MEDS: NIFEdipine 10 MG CAPSULE PO ×4 (13:03→14:17)
[2020-11-11 13:34] LABS: Strep Grp B PCR NEG for Grp B Strep
== END 2020-11-11 15:05 | disposition home or self-care (01) ==
LOC: LABOR 12:04
PROVIDERS: Admitting Provider Family Medicine; PCP Registered Nurse; Referring Provider Family Medicine; Visit Provider Family Medicine
DX: O30.043 Twin pregnancy, dichorionic/diamniotic, third trimester (principal); O60.03 Preterm labor without delivery, third trimester; Z3A.35 35 weeks gestation of pregnancy
CPT/HCPCS: 59025; 59050; 84112; 87081; 87653; G0378; G0379

== ENCOUNTER 2020-11-12 13:24 | Outpatient (CLI) | payer OTHER, MEDICAID, SELFPAY | END 2020-11-12 14:32 | disposition home or self-care (01) | LOC: LABOR 14:14 → OB 11-13 08:27 | PROVIDERS: PCP Registered Nurse; Referring Provider Obstetrics & Gynecology; Visit Provider Obstetrics & Gynecology | DX: O60.03 Preterm labor without delivery, third trimester (principal); O30.043 Twin pregnancy, dichorionic/diamniotic, third trimester; Z3A.35 35 weeks gestation of pregnancy | CPT/HCPCS: 59025; G0378; G0379 ==

== ENCOUNTER 2020-11-19 13:14 | Outpatient (CLI) | payer OTHER, MEDICAID, SELFPAY | END 2020-11-19 14:37 | disposition home or self-care (01) | LOC: LABOR 13:37 → OB 11-20 08:42 | PROVIDERS: PCP Registered Nurse; Referring Provider Obstetrics & Gynecology; Visit Provider Obstetrics & Gynecology | DX: O30.049 Twin pregnancy, dichorionic/diamniotic, unspecified trimester (principal); Z3A.36 36 weeks gestation of pregnancy | CPT/HCPCS: 59025; G0378; G0379 ==

== ENCOUNTER 2020-11-22 14:12 | Observation (INO) | payer OTHER, MEDICAID, SELFPAY | END 2020-11-22 16:58 | disposition home or self-care (01) | PROVIDERS: Admitting Provider Obstetrics & Gynecology; PCP Registered Nurse; Referring Provider Obstetrics & Gynecology; Visit Provider Obstetrics & Gynecology | DX: O30.043 Twin pregnancy, dichorionic/diamniotic, third trimester (principal); O47.03 False labor before 37 completed weeks of gestation, third trimester; O36.8132 Decreased fetal movements, third trimester, fetus 2; Z3A.36 36 weeks gestation of pregnancy | CPT/HCPCS: 59025; 59050; 84112; G0378; G0379 ==

== ENCOUNTER → 2020-11-28 13:49 | Outpatient (CLI) | payer OTHER, MEDICAID, SELFPAY ==
[2020-11-28 16:02] LABS: COVID19 -Nasal RAPID Negative (Negative)
== END ==
PROVIDERS: PCP Registered Nurse; Visit Provider Obstetrics & Gynecology
DX: Z34.83 Encounter for supervision of other normal pregnancy, third trimester (principal); Z20.822 Contact with and (suspected) exposure to COVID-19; Z3A.37 37 weeks gestation of pregnancy
CPT/HCPCS: 87635

== ENCOUNTER 2020-11-29 05:45 | Inpatient (IN) | payer OTHER, MEDICAID, SELFPAY ==
--- NOTE | 2020-11-29 | PATH_ITS ---
[facility] Accession Number: [id number] . 01 Material submitted: . fallopian tube - BILATERAL FALLOPIAN TUBE SEGMENTS (TUBAL LIGATION) . 01 Clinical history: . REPEAT W/ LUCA SALPINGECTOMY . 02 Diagnosis: Bilateral Fallopian Tube Segments, Tubal Ligation: Complete cross-sections of segments of fallopian tube x2. Negative for atypia or malignancy. MRV 12/04/2020 0954 Local . 02 Electronically signed: . Carla Chung MD, Pathologist NPI- [id number] . 01 Gross description: . The specimen is received in formalin, labeled bilateral fallopian tube segments and consists of two fallopian tubes measuring 9.5 cm in length by 1.2 cm in diameter and 10.2 cm in length by 1.0 cm in diameter. The serosa is pink-purple and smooth and there are multiple paratubal cysts ranging from 0.1 to 1.5 cm. Sectioning reveals a chaney-pink mucosa and a lumen measuring 0.5 cm in diameter. Senior Program Analyst sections are submitted. . A1-A3: shorter fallopian tube, central cross-sections, bisected fimbria and margin (blue). A4-A6: longer fallopian tube, central cross-sections, margin (blue) and bisected tip. (EA:[id number]) /MRV 11/30/2020 1311 Local . 02 Pathologist provided ICD-10: Z30.2, O30.009, Z3A.38 . 02 CPT . [id number] Performed at: 01 Lab[facility]s include 234 beds at the [facility] [address] [place] [address] [facility], [place], [place] [id number] MD Yovani Padilla MD Phone: [phone] Performed at: 02 [facility] [place] [address] [place] [id number] MD Danielle Montes MD Phone: [phone]
[2020-11-29 06:19] VITALS: BP 117/77
[2020-11-29 06:58] LABS: Add Manual Diff / Slide Review NO; Basophils Absolute Auto 0 /uL (0-100); Basophils Percent Auto 0.3 % (0-2); Eosinophils Absolute Auto 100 /uL (0-450); Eosinophils Percent Auto 0.8 % (2-4); Hematocrit 36.8 % (36-46); Hemoglobin 12.4 g/dL (12.0-16.0); Lymphocytes Absolute Auto 1600 /uL (1100-4500); Lymphocytes Percent Auto 17.8 % (25-40); Mean Corpuscular HGB Conc 33.7 % (30-36); Mean Corpuscular Hemoglobin 29.1 PG (26-34); Mean Corpuscular Volume 86.6 fL (80-100); Monocytes Absolute Auto 800 /uL (0-900); Monocytes Percent Auto 8.6 % (3-14); Neutrophils Absolute Auto 6700 /uL (1500-7000); Neutrophils Percent Auto 72.5 % (50-75); Platelet Count 216 X10^3/uL (150-400); Red Blood Cell Count 4.25 X10^6/uL (4.0-5.2); Red Cell Distribution Width 15.6 % (11.6-14.8); White Blood Cell Count 9.2 X10^3/uL (4.5-11.0)
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
--- NOTE | 2020-11-29 07:35 | PM.PREOP ---
Pre-operative Note COVID-19 COVID-19 status: Negative Result date/Date tested (Pos, Neg/Pending): 11/28/20 Interval Note History & Physical reviewed/Exam performed by Physician: Yes Changes to H&P: No H&P completed within 30 days and has changed as indicated here:: 11/29/20
[2020-11-29] MEDS: LACTATED RINGERS 1,000 ML 100 ML IV (07:49)
[2020-11-29] MEDS: CITRIC ACID/SODIUM CITRATE 15 ML SOLUTION 30 ML PO (07:50)
[2020-11-29] MEDS: ACETAMINOPHEN 325 MG TABLET 975 MG PO (07:51)
[2020-11-29] MEDS: CEFAZOLIN 2 GM/100 ML FROZ.PIGGY IV (07:56)
--- NOTE | 2020-11-29 08:29 | SUR.OPER ---
Supine on Padded OR bed, head on pillow, safety belt at thigh, arms secured on padded arm boards at <90 degrees abduction. Bump under right buttock. Legs uncrossed with pillow under knees, gel pad to heels, tape over blanket to lower legs.
--- NOTE | 2020-11-29 08:31 | SUR.OPER ---
Baby A FHR 150. Baby B FHR 139. Cord blood x 4 to OB with PROGRAM SPECIALIST.
--- NOTE | 2020-11-29 08:44 | SUR.OPER ---
Baby A (live male) Time of 0833. Baby B (live male) Time of 0836.
--- NOTE | 2020-11-29 08:50 | SUR.OPER ---
Placenta to L&D with OB Rn. Cord for baby A with one umbilical clamp. Cord for baby B with two umbilical clamps.
[2020-11-29] MEDS: LACTATED RINGERS 1,000 ML 42 ML IV (08:59)
[2020-11-29 09:30] VITALS: BP 116/73; PULSE 79; RESP 12; TEMP 36.2; O2SAT 97
[2020-11-29 09:35] VITALS: BP 121/76; PULSE 74; RESP 14; O2SAT 98
[2020-11-29 09:40] VITALS: BP 120/75; PULSE 74; RESP 12; O2SAT 98
--- NOTE | 2020-11-29 09:43 | PM.OBCS.1 ---
Operative Date/Time/Diagnoses Date of procedure: 11/29/20 Time of procedure: 09:43 Pre-op diagnosis: Estimated gestational age of 38 weeks Dichorionic/diamniotic twins Previous section Desires permanent sterilization Post-op diagnosis: same Procedure & Clinicians Procedure: Repeat low-transverse section Bilateral salpingectomy Same procedure as scheduled: Yes Indications: Estimated gestational age of 38 weeks Previous section Desires permanent sterilization Surgeon: Milagros Smith Click Yes if Unassisted: No Senior Solutions Engineer: Victor M Ferrari Reason for Senior Solutions Engineer: The dental hygiene administrative assistant was necessary for twin delivery, retraction during various phases of entering and closing the uterus and abdomen. Anesthesia Type: Epidural (With Duramorph) Operative Notes Findings: Baby A in the vertex presentation. Baby B in the vertex presentation Normal uterus, tubes, and ovaries Benign right paratubal cyst Closure Type: primary Specimen(s): cord blood, placenta and tubes/segments of tubes Intraoperative meds administered: Duramorph, Ketorolac and Pitocin Applied: Catheter (To continuous string) Estimated Blood Loss (mL): 350 Blood products transfused: none Procedure in detail: The patient was taken to the operating room where she was placed in the seated position. Spinal anesthesia with Duramorph was administered. She was placed in the dorsal supine position with a leftward tilt, and prepped and draped in the usual sterile fashion. A time-out was performed. A Pfannenstiel skin incision was made through the previous incision and carried through to the underlying layer of fascia. The fascia was nicked in the midline and the incision extended bilaterally with the Montgomery scissors. Superior aspect of the fascial incision was grasped with the Radha clamps, elevated, and underlying rectus muscles were dissected off with the Bovie and bluntly. Attention was then turned to the inferior aspect of this incision which in a similar fashion was grasped with the Radha clamps, elevated, and underlying rectus muscles dissected off bluntly and with the Bovie. The peritoneum was identified, grasped between 2 hemostats, and entered sharply with the Metzenbaum scissors. This incision was extended bluntly. The bladder blade was inserted. The vesicouterine peritoneum was identified, grasped with a pickup, and entered sharply with the Metzenbaum scissors. This incision was extended bilaterally, and the bladder flap created digitally. The bladder blade was reinserted. The lower uterine segment was incised in a transverse fashion with the scalpel. Upon entering the sac of baby a, there was clear amniotic fluid. The was found to be in the vertex presentation direct occiput posterior. The head was delivered without difficulty. The remainder of the body delivered without difficulty. The baby was wrapped in warm blankets. Cord clamping was delayed for 30 seconds. Once the cord was double clamped and cut. Cord bloods were obtained. The cord was tagged with a single plastic cord clamp. Baby B was found to be in the vertex presentation. The sac had been ruptured. With clear fluid. The was found in the vertex, occiput anterior presentation. The infant was delivered without difficulty. The was wrapped in warm blankets. After 30 seconds, the cord was double clamped and cut. Cord bloods were obtained. The 2nd cord was clamped with 2 plastic cord clamps. The placenta was delivered spontaneously. The uterus was cleared of all clots and debris. The uterine incision was repaired with 1. Chromic in a running interlocking fashion, and a 2nd layer the same suture was used for an imbricating layer. Hemostasis was achieved. The tubes and ovaries were examined and were found to be normal. The left tube was carried out to the fimbriated end. Using the gyrus PK, the mesosalpinx was cauterized and then cut with Metzenbaum scissors all the way to the cornu of the uterus. The tube was amputated at the cornua. This was repeated on the patient's left tube. Hemostasis was achieved. The gutters were cleared of all clots and debris with care around the mesosalpinx. The bladder flap was reapproximated using 2 0 Vicryl in a running fashion. The parietal peritoneum was closed using 2 0 Vicryl in a running fashion. The fascia was reapproximated using 0 Vicryl in a running fashion. Hemostasis was achieved in the subcutaneous layer using the Bovie. Five simple interrupted sutures with 3-0 Vicryl were placed in the subcutaneous layer to reapproximate. The skin was closed with 4 0 Monocryl in a subcuticular fashion. Steri-Strips, and an Aquacel dressing were placed. The uterus was expressed of a small amount of old blood. The uterus was marked 2 cm below the umbilicus. Sponge, lap, and instrument counts were correct x2. The patient tolerated the procedure well, and was taken to PACU in stable condition. The dental hygiene administrative assistant during this case assisted in entering the abdomen and uterus with retraction. He assisted with delivery of the 's by providing some fundal pressure. He assisted in closure of the uterus and abdomen with retraction. He assisted in removal of the tubes with Lam's along the length of the tube. Complications: none Baby 1: Gender: Male Presentation: vertex Position: Occiput Posterior Placental Delivery Description: Manual Removal Cord Vessel Description: 3 Vessels 2: Infant Gender: Male Presentation: vertex Position: Left Occiput Anterior Placental Delivery Description: Manual Removal and Normal Configuration Cord Vessel Description: 3 Vessels Post-operative Condition: stable Aftercare: routine postop
[2020-11-29] MEDS: OXYCODONE IR 5 MG TABLET PO (09:47)
[2020-11-29 09:55] VITALS: BP 109/76; PULSE 62; RESP 14; TEMP 36.2; O2SAT 98
[2020-11-29 10:02] VITALS: BP 110/75; PULSE 63; RESP 14; O2SAT 97
[2020-11-29] MEDS: KETOROLAC 30 MG/ML VIAL IV ×2 (15:33→21:31)
[2020-11-29] MEDS: LANOLIN OINT 7 GM 1 APPLIC TOP (15:34)
[2020-11-29] MEDS: ONDANSETRON 4 MG/2 ML INJ IV (18:03)
[2020-11-29] MEDS: SERTRALINE 50 MG TABLET 25 MG PO (21:32)
[2020-11-30] MEDS: OXYCODONE IR 5 MG TABLET PO ×6 (02:38→23:49)
[2020-11-30] MEDS: ACETAMINOPHEN 325 MG TABLET 650 MG PO ×4 (02:40→22:42)
[2020-11-30] MEDS: KETOROLAC 30 MG/ML VIAL IV (03:32)
[2020-11-30] MEDS: PRENATAL VIT,CALC/IRON/FOLIC 1 TABLET 1 TAB PO (10:40)
[2020-11-30] MEDS: DOCUSATE 250 MG CAPSULE PO (10:40)
[2020-11-30] MEDS: IBUPROFEN 600 MG TABLET PO ×3 (11:27→23:37)
[2020-11-30] MEDS: MAGNESIUM HYDROXIDE 30 ML UDC PO (20:59)
[2020-11-30] MEDS: SERTRALINE 50 MG TABLET 25 MG PO (20:59)
[2020-12-01] MEDS: ACETAMINOPHEN 325 MG TABLET 650 MG PO ×2 (04:18→10:55)
[2020-12-01] MEDS: IBUPROFEN 600 MG TABLET PO ×2 (05:34→10:54)
[2020-12-01] MEDS: DOCUSATE 250 MG CAPSULE PO (10:53)
[2020-12-01] MEDS: PRENATAL VIT,CALC/IRON/FOLIC 1 TABLET 1 TAB PO (10:54)
[2020-12-01] MEDS: OXYCODONE IR 5 MG TABLET PO (10:55)
--- NOTE | 2020-12-01 10:55 | P.PNOB_ITS ---
Subjective - OB Subjective Patient comments: no complaints, incisional pain, tolerating diet and flatus present baby status: doing well and nursing well (x2) [place] feeding status: exclusively breast feeding Date Patient Seen: 11/30/20 Time Patient Seen: 09:30 Exam Vital Signs (past 8 hours): Oxygen Delivery Method Room Air Narrative Exam Narrative: Generally: Patient is sitting up in bed, nursing 1 , no acute distress Lungs: Clear to auscultation bilaterally Cardiovascular: Regular rate and rhythm Fundus: U -2 Incision: Clean dry and intact with Aquacel dressing Extremities: No edema, negative Homans Objective Labs Result Diagrams: 11/29/20 06:15 Assessment & Plan Plan day: 1 plan OB: routine postop care Time Spent With Patient Time: Total time spent is greater than 50% in coordination of care (as documented) at patient's floor/unit and/or counseling patient: Time with patient: less than 15 minutes
--- NOTE | 2020-12-01 10:58 | PM.OBDS.1 ---
Discharge Providers Provider Date of admission: 11/29/20 05:45 Discharge Date: 12/01/20 Primary care physician: Talha Madrigal ND Consults: 11/29/20 12:40 Consult to Home Fire Alarm Installer Routine Comment: Discharge provider: Milagros Smith MD Summary Hospital Course Date Patient Seen: 12/01/20 Time Patient Seen: 10:58 Diagnoses: Estimated gestational age of 38 weeks Dichorionic/diamniotic twin gestation Previous section Repeat low-transverse section Desires permanent sterilization Bilateral salpingectomy Hospital Course: Patient is a 25-year-old 2 para 1104 who presented on November 29, 2020 for scheduled repeat low-transverse section and bilateral salpingectomy. She underwent this procedure without complication. Her course was unremarkable. She voided without the catheter on day # 1. She is tolerating a diet. going well. Pain well managed. Ambulating independently. Peripartum Data Infant Delivery Method: Section Laceration Description: None Episiotomy description: None Procedures: Spinal anesthesia Repeat low-transverse section Bilateral salpingectomy complications: none 1: Gender: Male Disposition of : home 2: Gender: Male Disposition of : home Status at Discharge Cognitive/behavioral status at discharge: oriented Functional status at discharge: independent ambulation Overall status at discharge: patient is progressing back to baseline Time Spent with Patient Time attestation: Total time spent providing and/or coordinating discharge services: Time spent: Less than 30 minutes Objective Labs Result Diagrams: 11/29/20 06:15 Exam Vital Signs (past 8 hours): Oxygen Delivery Method Room Air Narrative Exam Narrative: Generally: Patient is sitting up in bed, holding both infants, no acute distress Lungs: Clear to auscultation bilaterally Cardiovascular: Regular rate and rhythm Fundus: Firm at U -1 Incision: Clean dry and intact with Aquacel dressing Extremities: Negative Homans, no edema Discharge Plan Discharge Plan Patient Disposition: Home Provider Discharge Comment: Call with fever, chills, redness or drainage around the incision, or bleeding vaginally more than a pad in an hour Tylenol 650 mg every 6 hours or Tylenol a 1000 mg every 8 hours Ibuprofen 6-800 mg every 6 hours Stool softener as needed Discharge orders & Medications Prescriptions: New oxycodone 5 mg tablet 5 mg PO Q4H PRN (Reason: pain) Qty: 20 RF: 0 Continued albuterol sulfate 90 mcg/actuation HFA aerosol inhaler 1 puff inhalation Q4-6H PRN (Reason: shortness of breath or wheezing) Qty: 8.5 RF: 3 prenat.vits,isaura,[id number] Tablet 1 tab PO DAILY RF: 0 sertraline 25 mg tablet 25 mg PO DAILY RF: 0 Discontinued pantoprazole [Protonix] 40 mg tablet,delayed release (DR/EC) 40 mg PO DAILY Qty: 30 RF: 3 ondansetron 4 mg tablet,disintegrating 4 mg PO Q6H PRN (Reason: nausea and vomiting) Qty: 20 RF: 2 oxycodone-acetaminophen [Percocet] 5-325 mg tablet 1 tab PO Q4-6H PRN (Reason: pain) Qty: 14 RF: 0 Follow up/Referrals: Milagros Smith MD [Physician] - 2 Weeks (Telehealth visit in 2 weeks 6 week post visit) Diet/Activity/Treatments Diet: Regular Activity: No heavy lifting Skin/Wound/Dressing Care Report to your healthcare provider any signs of infection, such as:: chills, fever, increased pain, unusual drainage and unusual redness Dressing: Remove Aquacel dressing on Thursday, December 04 Leave steri strips in place Visit Report/Discharge Packet Instructions: DI for , DI for Prescription Opioid Use Discharge Data Primary Care Provider: Talha Madrigal
[2020-12-01 11:24] VITALS: BP 110/75; PULSE 63; RESP 14; TEMP 36.2
== END 2020-12-01 14:40 | disposition home or self-care (01) | DRG 540 ==
PROVIDERS: Admitting Provider Obstetrics & Gynecology; PCP Registered Nurse; Referring Provider Obstetrics & Gynecology; Visit Provider Obstetrics & Gynecology
PROC: 10D00Z1 Extraction of Products of Conception, Low, Open Approach (ICD-10-PCS; CPT 59514; principal; 2020-11-29 07:45)
DX: O30.043 Twin pregnancy, dichorionic/diamniotic, third trimester (principal); Z3A.38 38 weeks gestation of pregnancy; Z37.2 Twins, both liveborn; Z30.2 Encounter for sterilization; O99.344 Other mental disorders complicating childbirth; F41.8 Other specified anxiety disorders; N83.8 Other noninflammatory disorders of ovary, fallopian tube and broad ligament; Z20.822 Contact with and (suspected) exposure to COVID-19
CPT/HCPCS: 36415; 58611; 59050; 59514; 85025; 86850; 86900; 86901; 87635; J0690; J1885; J2274; J2405; J2590

== ENCOUNTER 2021-04-09 14:15 | Outpatient (RCR) | payer OTHER, MEDICAID, SELFPAY ==
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
--- NOTE | 2021-01-22 15:27 | PT.OPPOC ---
Physical, Occupational & Speech Therapy At 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 Address: [address] [place] [address], [id number] Email: [email or web address] Plan Of Care PT-OP-T Assessment and Plan Start: 01/22/21 08:27 Freq: Status: Active Protocol: Document 01/22/21 12:45 AMB (Rec: 01/23/21 15:22 AMB [email or web address]) Physical Therapy Assessment Rehab Potential Rehabilitation Potential Good Evaluation Complexity Number of Personal Factors/Comorbidities 3 or More Number of Body Systems Impaired 3 Clinical Presentation at Evaluation Evolving Impairments Impairments Functional Activities,Pain, Strength Goals Three Impairment pain Short Term Goal (STG) Shy will perform all bed mobility without right sided abdominal pain. STG Duration 4 weeks Funnel Setter Goal (LTG) Shy will be independent with a strengthening and scar mobilization HEP. LTG Duration 8 weeks Two Impairment pelvic floor/TA strength Short Term Goal (STG) Shy will improve her pelvic floor strength so that she can contract her pelvic floor for 10 seconds in standing. STG Duration 4 weeks Funnel Setter Goal (LTG) Shy will return to her gym exercise routine without abdominal coning or back pain. LTG Duration 8 weeks One Impairment continence Short Term Goal (STG) Shy will lift 20# from floor to waist height while bambi her pelvic floor to avoid leaking urine. STG Duration 4 weeks [facility] Goal (LTG) Shy will be able to relax her pelvic floor so that she can initiate the stream of urine without pushing. 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. She will benefit from physical therapy for pelvic floor and abdominal strengthening so she can return to her previous level of function, in addition to manual therapy as needed for her right sided and abdominal pain. Physical Therapy Plan Frequency and Duration Frequency of Treatment 1x/Week Duration of Treatment 8 weeks Plan of Care Start Date 01/22/21 Plan of Care End Date 03/19/21 Therapeutic Interventions Therapeutic Interventions Home Exercise Program,Manual Therapy,Neuromuscular Re- education,Self-Care/Home Management,Therapeutic Activities,Therapeutic Exercises Next Visit Focus/Plan Next Note Type Treatment Note Next Visit Plan Can begin with sEMG, work on both pelvic floor and TA stabilization- pt given quick flicks and long holds for HEP in supine/seated at eval- progress as able. Assess how pt tolerated kinesiotape for diastasis. Instruct in scar massage, further assess pt's right sided abdominal pain and difficulty initiating stream of urine. Plan of Care Dates Plan of Care Start Date 01/22/21 Plan of Care End Date 03/19/21 Electronically Signed by: Loreta Mayorga, PT 01/23/21 [id number] Please Sign and Return: I have reviewed this Plan of Care and certify that the skilled therapy services above are required to meet the patient?s needs. Physician Signature Date Printed Name and Credentials Clinical Instructor Signature Printed Name and Credentials
--- NOTE | 2021-01-28 16:03 | PT.OTN ---
Current Diagnoses Other female genital prolapse (01/28/21) Other specified symptoms and signs involving the digestive system and abdomen (01/28/21) History of uterine scar from previous surgery (01/28/21) Physical Therapy Treatment Note PT-OP-A Visit Information Start: 01/22/21 08:27 Freq: Status: Active Protocol: Document 01/28/21 13:30 AMB (Rec: 01/28/21 16:03 AMB [id number]) Out-Patient Physical Therapy Visit Information Visit Information Visit Type Treatment Note Visit Start Time 13:30 Visit Stop Time 14:15 Total Visit Minutes 45 Visit Number 2 PT-OP-B Current Condition Start: 01/22/21 08:27 Freq: Status: Active Protocol: Document 01/22/21 12:45 AMB (Rec: 01/22/21 13:12 AMB [id number]) Current Condition History of Current Condition Onset Date November 2020 Current Complaints Weakness post , urinary incontinence, abdominal pain ( R), History of Current Condition Shy is 7 weeks post after for twin boys. She also has twin boy 6 year olds at home who were also delivered via C- section. When she was 19 weeks she started bed rest after getting covid and getting labor. 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 She has noted R sided abdominal pain with bed mobility, bowel movements since the . She was constipated during but denies current constipation. Urinary leaking with lifting heavy. Has had difficulty initiating the stream of urine since being , feels like she has to push a little to start the flow of urine and then the urine just falls out. 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 Treatment Goals Patient/Caregiver Goals Return to work (lifting patients), return to gym workout Prior Functional Status Baseline Function- ADL's Independent Baseline Function- Mobility Independent Current Functional Impairments (Reported) Functional Limitations- ADL's Has not returned to work, to working out, Personal Factors Other Personal Factors That May Effect hx of depression Therapy/Recovery PT-OP-C Subjective Start: 01/22/21 08:27 Freq: Status: Active Protocol: Document 01/28/21 13:30 AMB (Rec: 01/28/21 16:03 AMB [id number]) OP-PT Subjective Patient Comments Patient Comments Pt liked the tape, but didn't notice a change in pain with it. [place] it was more supportive. PT-OP-I Pelvic Floor Start: 01/22/21 08:27 Freq: Status: Active Protocol: Document 01/22/21 12:45 AMB (Rec: 01/23/21 15:22 AMB [email or web address]) Pelvic Floor Assessment Urine Urinary Symptoms Hesitancy,Falling Out Feeling/ Heavy Other Urinary Symptoms heaviness at end of day Leakage Cause Exercise,Lifting Urine Pad Type Panty Liner Bowel Other Bowel Symptoms denies current constipation, has been an issue in the past Prolapse Cystocele Grade 1 Contraction Ability Voluntary Contraction Weak Voluntary Relaxation Weak Manual Muscle Testing Left 2 Manual Muscle Testing Right 2 Manual Muscle Testing Anterior 2 Manual Muscle Testing Posterior 3 Muscle Endurance (Seconds) 3 Number of Quick Contractions In 10 4 Seconds Comments Pelvic Floor Comments pelvic musculature did have tension, but pt did not report pain with palpation with internal exam. Pt did have pain with palpation over right side of scar. Pain with palpation over right abdominals that felt different than pain. No pain at right iliopsoas. 3 finger width diastasis recti above and below umbilicus. PT-OP-Q Treatments Start: 01/22/21 08:27 Freq: Status: Active Protocol: Document 01/28/21 13:30 AMB (Rec: 01/28/21 16:03 AMB [id number]) Therapeutic Exercises Supine Exercises 4 Supine Exercise Name hip flexor stretch Comments leg off table (R) 3 Supine Exercise Name table top Comments tap down was challenging 2 Supine Exercise Name SLR Comments extensive vc for TA and pelvic floor 1 Supine Exercise Name quick flicks, long holds, TA hold with breathing Reps/Minutes 10 Manual Therapy Treatment Soft Tissue Mobilization 1 Body Location R abdomen/ Comments MFR and scar massage over c- section, right sided rectus abdominus was quite painful Taping 1 Body Location herringbone pattern for diastasis Type of Tape Kinesio Tape PT-OP-T Assessment and Plan Start: 01/22/21 08:27 Freq: Status: Active Protocol: Document 01/28/21 13:30 AMB (Rec: 01/28/21 16:03 AMB [id number]) Physical Therapy Assessment Goals Three Impairment pain Short Term Goal (STG) Shy will perform all bed mobility without right sided abdominal pain. STG Duration 4 weeks Usp Goal (LTG) Shy will be independent with a strengthening and scar mobilization HEP. LTG Duration 8 weeks Two Impairment pelvic floor/TA strength Short Term Goal (STG) Shy will improve her pelvic floor strength so that she can contract her pelvic floor for 10 seconds in standing. STG Duration 4 weeks Usp Goal (LTG) Shy will return to her gym exercise routine without abdominal coning or back pain. LTG Duration 8 weeks One Impairment continence Short Term Goal (STG) Shy will lift 20# from floor to waist height while bambi her pelvic floor to avoid leaking urine. STG Duration 4 weeks Office Assistance Goal (LTG) Shy will be able to relax her pelvic floor so that she can initiate the stream of urine without pushing. LTG Duration 8 weeks Assessment Summary Assessment Shy continues to have right sided abdominal pain that is worse with palpation. 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 Focus on TA/ pelvic floor with work on R sided abdominal pain. Physical Therapy Plan Next Visit Focus/Plan Next Note Type Treatment Note Next Visit Plan Can try sEMG, work on both pelvic floor and TA stablization. HEP includes long holds, quick flicks, SLR, table top hold, and hip flexor stretch. Follow up on pt's right sided abdominal pain (and pain can instruct further in self massage) and further discuss difficulty initiating stream of urine.
--- NOTE | 2021-02-04 17:14 | PT.OTN ---
Current Diagnoses Other female genital prolapse (02/04/21) Other specified symptoms and signs involving the digestive system and abdomen (02/04/21) History of uterine scar from previous surgery (02/04/21) Physical Therapy Treatment Note PT-OP-A Visit Information Start: 01/22/21 08:27 Freq: Status: Active Protocol: Document 02/04/21 14:18 LRN (Rec: 02/04/21 15:07 LRN [id number]) Out-Patient Physical Therapy Visit Information Visit Information Visit Type Treatment Note Visit Start Time 14:19 Visit Stop Time 15:00 Total Visit Minutes 41 Visit Number 3 PT-OP-B Current Condition Start: 01/22/21 08:27 Freq: Status: Active Protocol: Document 01/22/21 12:45 AMB (Rec: 01/22/21 13:12 AMB [id number]) Current Condition History of Current Condition Onset Date November 2020 Current Complaints Weakness post , urinary incontinence, abdominal pain ( R), History of Current Condition Shy is 7 weeks post after for twin boys. She also has twin boy 6 year olds at home who were also delivered via C- section. When she was 19 weeks she started bed rest after getting covid and getting labor. 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 She has noted R sided abdominal pain with bed mobility, bowel movements since the . She was constipated during but denies current constipation. Urinary leaking with lifting heavy. Has had difficulty initiating the stream of urine since being , feels like she has to push a little to start the flow of urine and then the urine just falls out. 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 Treatment Goals Patient/Caregiver Goals Return to work (lifting patients), return to gym workout Prior Functional Status Baseline Function- ADL's Independent Baseline Function- Mobility Independent Current Functional Impairments (Reported) Functional Limitations- ADL's Has not returned to work, to working out, Personal Factors Other Personal Factors That May Effect hx of depression Therapy/Recovery PT-OP-C Subjective Start: 01/22/21 08:27 Freq: Status: Active Protocol: Document 02/04/21 14:18 LRN (Rec: 02/04/21 15:07 LR [id number]) OP-PT Subjective Patient Comments Patient Comments States the K-tape was uncomfortable on her incision so she took it off in less than 24 hrs. States she normally likes it and would like it again, just not as low . IBS so bowel, type of bowel is 4-5. While was bleeding in urine, but doesn't think she is now. PT-OP-I Pelvic Floor Start: 01/22/21 08:27 Freq: Status: Active Protocol: Document 02/04/21 14:18 LRN (Rec: 02/04/21 15:07 LRN [id number]) Pelvic Floor Assessment Bowel Bowel Movement Frequency 3-4x/day [place] Stool Chart Type 1-7 5 [place] Stool Chart Comments Past 2 weeks stools 3-4x/day and Stools are 4-5 PT-OP-Q Treatments Start: 01/22/21 08:27 Freq: Status: Active Protocol: Document 02/04/21 14:18 LRN (Rec: 02/04/21 15:07 LRN [id number]) Therapeutic Exercises Supine Exercises 5 Supine Exercise Name Deep Breathing Reps/Minutes 6' Comments Phys cuing needed, pt not able to consistently correctly breathe 4 Supine Exercise Name hip flexor stretch Comments leg off table (R) 3 Supine Exercise Name table top Comments Extra time w/phys & v cuing to keep pelvis stable Manual Therapy Treatment Soft Tissue Mobilization 1 Body Location R abdomen/ Comments MFR and scar massage over c- secver abdomen. Restricted with caudal, L side & CCW fascial glide. Taping 2 Body Location scar Treatment Focus Improve fascial mobility Type of Tape Kinesio Tape Skin Inspection Good 1 Body Location herringbone pattern for diastasis Type of Tape Kinesio Tape Comments I-strip down linea alba 3-I strips across abdomen Self-Care/Home Management Treatment Education Patient Education Home Exercise Program Other Education Issued/reviewed bladder diary with I/S given in completion of diary. Pt educated in self MFR of abdomen with I/S pt to work superficial in AB & upper thighs. Activities Self-Care/Home Management Activities Issued & reviewed HEP: Deep breathing (2 handouts). PT-OP-T Assessment and Plan Start: 01/22/21 08:27 Freq: Status: Active Protocol: Document 02/04/21 14:18 LRN (Rec: 02/04/21 15:07 LRN [id number]) Physical Therapy Assessment Goals Three Impairment pain Short Term Goal (STG) Shy will perform all bed mobility without right sided abdominal pain. STG Duration 4 weeks Correction Goal (LTG) Shy will be independent with a strengthening and scar mobilization HEP. LTG Duration 8 weeks Two Impairment pelvic floor/TA strength Short Term Goal (STG) Shy will improve her pelvic floor strength so that she can contract her pelvic floor for 10 seconds in standing. STG Duration 4 weeks Correction Goal (LTG) Shy will return to her gym exercise routine without abdominal coning or back pain. LTG Duration 8 weeks One Impairment continence Short Term Goal (STG) Shy will lift 20# from floor to waist height while bambi her pelvic floor to avoid leaking urine. STG Duration 4 weeks Life Skills Worker Goal (LTG) Shy will be able to relax her pelvic floor so that she can initiate the stream of urine without pushing. LTG Duration 8 weeks Assessment Summary Assessment Pt is quite myofascially restricted in abdominal region . Sensitive at healed C- section scar, but tolerated K- tape for improving mobility well, without complaints of pain. Pt DR around umbilicus present, but no obvious doming except when transferring sup to sit (sitting straight up). Pt did much better after transfer training review. Pt R lower abdominal pain may be myofascial related, GI related , but may be in area of iliocecal valve. Pt had poor recall of HEP; therefore HEP handout may be needed next visit if pt continues to show poor recall. Pt history of IBS may hinder her progress. Physical Therapy Plan Next Visit Focus/Plan Next Note Type Treatment Note Next Visit Plan Review proper transfer to protect DR, review HEP (SLR, table top hold, and hip flexor stretch), can try sEMG, work on both pelvic floor and TA stablization. Review long holds, quick flicks. Follow up on pt's right sided abdominal pain (and pain can instruct further in self massage) and further discuss difficulty initiating stream of urine.
--- NOTE | 2021-02-18 10:35 | PT-OP ANOTE ---
Pt no showed appt, pt states she forgot all about it because baby has been in the hospital.
--- NOTE | 2021-03-01 10:39 | PT-OP ANOTE ---
Pt no showed 2nd appt. Had previously no showed due to child being down at [facility]. Left voicemail that if pt no shows again we would have to discharge. Also recommended being on waitlist since she is not scheduled for another 20 days.
--- NOTE | 2021-03-21 16:41 | PT.OPPOC ---
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 pt notes she is doing better with bed mobility, she is still feeling the right sided abdominal pain STG Duration 4 weeks Classroom Instructional Aide Goal (LTG) Shy will be independent with a strengthening and scar mobilization HEP. GOAL MET LTG Duration 8 weeks Two Impairment pelvic floor/TA strength Short Term Goal (STG) Shy will improve her pelvic floor strength so that she can contract her pelvic floor for 10 seconds in standing. Goal not yet met STG Duration 4 weeks Classroom Instructional Aide Goal (LTG) Shy will return to her gym exercise routine without abdominal coning or back pain. No coning present today with diastasis check, pt not yet returned to her gym program LTG Duration 8 weeks One Impairment continence Short Term Goal (STG) Shy will lift 20# from floor to waist height while bambi her pelvic floor to avoid leaking urine. Good progress STG Duration 4 weeks Classroom Instructional Aide Goal (LTG) Shy will be able to relax her pelvic floor so that she can initiate the stream of urine without pushing. Good progress LTG Duration 8 weeks Assessment Summary Assessment Pt notes today her scar feels much better after last two sessions of PT and she has been working on scar tissue massage her self. She has been seen for a total of 4 PT visits. Shy still reports the right sided pain but notes it feels more internal. She is also experiencing cramping type pain that comes on after intercourse and after she has been on her feet standing for work. I did a internal exam today to recheck strength and she is still weak in the anterior levator ani. There is some swelling noted in the superior pubic region and there is a grade 1 uterine prolapse felt today. Shy was shown how to elevate her pelvis to decompress her pelvic organs and we worked on pelvic floor contraction without gluteal substitution in this position. I also gave her some stretches for her paraspinals as she is still tending to be in a anteriorly rotated position with her pelvis. She is having a ultrasound done next week to rule out any infection. 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 She notes she is on her feet for 8 hours a day. Shy would benefit from continued PT Physical Therapy Plan Frequency and Duration Frequency of Treatment 1x/Week Duration of Treatment 8 weeks Plan of Care Start Date 03/21/21 Plan of Care End Date 05/16/21 Therapeutic Interventions Therapeutic Interventions Home Exercise Program,Manual Therapy,Neuromuscular Re- education,Self-Care/Home Management,Therapeutic Activities,Therapeutic Exercises Next Visit Focus/Plan Next Note Type Treatment Note Next Visit Plan Continue to work on inner core stabilization, check in to see how pelvic decompression went for patient, EMG biofeedback for endurance strength training. Plan of Care Dates Plan of Care Start Date 03/21/21 Plan of Care End Date 05/16/21 Electronically Signed by: Florence Singh, PT 03/21/21 2750 Please Sign and Return: I have reviewed this Plan of Care and certify that the skilled therapy services above are required to meet the patient?s needs. Physician Signature Date Printed Name and Credentials Clinical Instructor Signature Printed Name and Credentials
--- NOTE | 2021-03-21 16:41 | PT.OTN ---
Current Diagnoses Other female genital prolapse (03/21/21) Other specified symptoms and signs involving the digestive system and abdomen (03/21/21) History of uterine scar from previous surgery (03/21/21) Physical Therapy Treatment Note PT-OP-A Visit Information Start: 01/22/21 08:27 Freq: Status: Active Protocol: Document 03/21/21 15:20 [facility] (Rec: 03/21/21 16:30 [facility] [id number]) Out-Patient Physical Therapy Visit Information Visit Information Visit Type Progress Note Visit Start Time 15:20 Visit Stop Time 16:05 Total Visit Minutes 45 Visit Number 4 PT-OP-B Current Condition Start: 01/22/21 08:27 Freq: Status: Active Protocol: Document 01/22/21 12:45 [facility] (Rec: 01/22/21 13:12 AMB [id number]) Current Condition History of Current Condition Onset Date November 2020 Current Complaints Weakness post , urinary incontinence, abdominal pain ( R), History of Current Condition Shy is 7 weeks post after for twin boys. She also has twin boy 6 year olds at home who were also delivered via C- section. When she was 19 weeks she started bed rest after getting covid and getting labor. 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 She has noted R sided abdominal pain with bed mobility, bowel movements since the . She was constipated during but denies current constipation. Urinary leaking with lifting heavy. Has had difficulty initiating the stream of urine since being , feels like she has to push a little to start the flow of urine and then the urine just falls out. 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 Treatment Goals Patient/Caregiver Goals Return to work (lifting patients), return to gym workout Prior Functional Status Baseline Function- ADL's Independent Baseline Function- Mobility Independent Current Functional Impairments (Reported) Functional Limitations- ADL's Has not returned to work, to working out, Personal Factors Other Personal Factors That May Effect hx of depression Therapy/Recovery PT-OP-C Subjective Start: 01/22/21 08:27 Freq: Status: Active Protocol: Document 03/21/21 15:20 [facility] (Rec: 03/21/21 15:27 [facility] [id number]) OP-PT Subjective Patient Comments Patient Comments pt had her tonsils out on thursday so it hurts to talk today. The right side is still super sensitive and she had a stitch from the inside come out during the healing. Shy reports the scar tissue work really helped and now she feels that the pain is more internal rather than external. She is getting a ultrasound next thursday from Dr. Smith. [place] is painful and the day after is painful. She feels like after pelvic floor contractions she is sore as well. PT-OP-I Pelvic Floor Start: 01/22/21 08:27 Freq: Status: Active Protocol: Document 03/21/21 15:20 [facility] (Rec: 03/21/21 16:30 [facility] [id number]) Pelvic Floor Assessment Pelvic Clock Pelvic Clock 12-3 Atrophy Pelvic Clock 9-12 Atrophy Pelvic Clock Other pt has difficulty with anterior pelvic floor contraction and there is swelling noted in the suprapubic region Prolapse Uterine Prolapse Grade 1 Cystocele Grade 1 Contraction Ability Voluntary Contraction Weak Voluntary Relaxation Weak Manual Muscle Testing Left 2 Manual Muscle Testing Right 2 Manual Muscle Testing Anterior 2 Manual Muscle Testing Posterior 3 Muscle Endurance (Seconds) 5 Number of Quick Contractions In 10 4 Seconds PT-OP-Q Treatments Start: 01/22/21 08:27 Freq: Status: Active Protocol: Document 03/21/21 15:20 [facility] (Rec: 03/21/21 16:30 [facility] [id number]) Therapeutic Exercises Supine Exercises TA with marches Supine Exercise Name Supine TA with marching Reps/Minutes x 10 pelvis elevated on wedge Comments for pelvic decompression, trial of PFM exercises in this position 4 Supine Exercise Name hip flexor stretch in handy test position Side bilateral Comments trial of both sides, right tighter than left Other Exercises cat cow to georgina pose Reps/Minutes x 10 reps Comments to relax the lumbar paraspinals Manual Therapy Treatment Manual Techniques manual recheck of pelvic floor strength and endurance Body Position Hooklying Comments anterior wall of the levator ani is most pronounced as being weak, no muscle guarding present, pt able to relax inbetween contractions, uterine prolapse grade 1 felt and swelling noted in the suprapubic region. PT-OP-T Assessment and Plan Start: 01/22/21 08:27 Freq: Status: Active Protocol: Document 03/21/21 15:20 [facility] (Rec: 03/21/21 16:30 [facility] [id number]) Physical Therapy Assessment Goals Three Impairment pain Short Term Goal (STG) Shy will perform all bed mobility without right sided abdominal pain. pt notes she is doing better with bed mobility, she is still feeling the right sided abdominal pain STG Duration 4 weeks Belt Lacer Goal (LTG) Shy will be independent with a strengthening and scar mobilization HEP. GOAL MET LTG Duration 8 weeks Two Impairment pelvic floor/TA strength Short Term Goal (STG) Shy will improve her pelvic floor strength so that she can contract her pelvic floor for 10 seconds in standing. Goal not yet met STG Duration 4 weeks Prison Goal (LTG) Shy will return to her gym exercise routine without abdominal coning or back pain. No coning present today with diastasis check, pt not yet returned to her gym program LTG Duration 8 weeks One Impairment continence Short Term Goal (STG) Shy will lift 20# from floor to waist height while bambi her pelvic floor to avoid leaking urine. Good progress STG Duration 4 weeks Belt Lacer Goal (LTG) Shy will be able to relax her pelvic floor so that she can initiate the stream of urine without pushing. Good progress LTG Duration 8 weeks Assessment Summary Assessment Pt notes today her scar feels much better after last two sessions of PT and she has been working on scar tissue massage her self. She has been seen for a total of 4 PT visits. Shy still reports the right sided pain but notes it feels more internal. She is also experiencing cramping type pain that comes on after intercourse and after she has been on her feet standing for work. I did a internal exam today to recheck strength and she is still weak in the anterior levator ani. There is some swelling noted in the superior pubic region and there is a grade 1 uterine prolapse felt today. Shy was shown how to elevate her pelvis to decompress her pelvic organs and we worked on pelvic floor contraction without gluteal substitution in this position. I also gave her some stretches for her paraspinals as she is still tending to be in a anteriorly rotated position with her pelvis. She is having a ultrasound done next week to rule out any infection. 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 She notes she is on her feet for 8 hours a day. Shy would benefit from continued PT Physical Therapy Plan Frequency and Duration Frequency of Treatment 1x/Week Duration of Treatment 8 weeks Plan of Care Start Date 03/21/21 Plan of Care End Date 05/16/21 Therapeutic Interventions Therapeutic Interventions Home Exercise Program,Manual Therapy,Neuromuscular Re- education,Self-Care/Home Management,Therapeutic Activities,Therapeutic Exercises Next Visit Focus/Plan Next Note Type Treatment Note Next Visit Plan Continue to work on inner core stabilization, check in to see how pelvic decompression went for patient, EMG biofeedback for endurance strength training.
--- NOTE | 2021-04-02 15:50 | PT.OTN ---
Current Diagnoses Other female genital prolapse (04/02/21) Other specified symptoms and signs involving the digestive system and abdomen (04/02/21) History of uterine scar from previous surgery (04/02/21) Physical Therapy Treatment Note PT-OP-A Visit Information Start: 01/22/21 08:27 Freq: Status: Active Protocol: Document 04/02/21 14:15 [facility] (Rec: 04/02/21 15:50 AMB [id number]) Out-Patient Physical Therapy Visit Information Visit Information Visit Type Treatment Note Visit Start Time 14:15 Visit Stop Time 15:00 Total Visit Minutes 45 Visit Number 5 PT-OP-B Current Condition Start: 01/22/21 08:27 Freq: Status: Active Protocol: Document 01/22/21 12:45 [facility] (Rec: 01/22/21 13:12 AMB [id number]) Current Condition History of Current Condition Onset Date November 2020 Current Complaints Weakness post , urinary incontinence, abdominal pain ( R), History of Current Condition Shy is 7 weeks post after for twin boys. She also has twin boy 6 year olds at home who were also delivered via C- section. When she was 19 weeks she started bed rest after getting covid and getting labor. 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 She has noted R sided abdominal pain with bed mobility, bowel movements since the . She was constipated during but denies current constipation. Urinary leaking with lifting heavy. Has had difficulty initiating the stream of urine since being , feels like she has to push a little to start the flow of urine and then the urine just falls out. 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 Continues to have suprapubic cramping and heaviness at end of the day. PT-OP-I Pelvic Floor Start: 01/22/21 08:27 Freq: Status: Active Protocol: Document 03/21/21 15:20 [facility] (Rec: 03/21/21 16:30 [facility] [id number]) Pelvic Floor Assessment Pelvic Clock Pelvic Clock 12-3 Atrophy Pelvic Clock 9-12 Atrophy Pelvic Clock Other pt has difficulty with anterior pelvic floor contraction and there is swelling noted in the suprapubic region Prolapse Uterine Prolapse Grade 1 Cystocele Grade 1 Contraction Ability Voluntary Contraction Weak Voluntary Relaxation Weak Manual Muscle Testing Left 2 Manual Muscle Testing Right 2 Manual Muscle Testing Anterior 2 Manual Muscle Testing Posterior 3 Muscle Endurance (Seconds) 5 Number of Quick Contractions In 10 4 Seconds PT-OP-Q Treatments Start: 01/22/21 08:27 Freq: Status: Active Protocol: Document 04/02/21 14:15 AM[facility] (Rec: 04/02/21 15:50 AMB [email or web address]) Therapeutic Exercises Supine Exercises TA with marches Supine Exercise Name Supine TA with marching Reps/Minutes x 10 pelvis elevated on wedge Comments for pelvic decompression, trial of PFM exercises in this position 1 Supine Exercise Name roll in roll out Resistance #3 t band Reps/Minutes 10 Other Exercises 1 Other Exercise Name quadruped UE ext with PF and TA Reps/Minutes 10 PT-OP-T Assessment and Plan Start: 01/22/21 08:27 Freq: Status: Active Protocol: Document 04/02/21 14:15 [facility] (Rec: 04/02/21 15:50 AMB [email or web address]) Physical Therapy Assessment Assessment Summary Assessment Pt feels like she is improving , but continue to feel weak, has not been able to return to previous fitness level yet. encouraged in gentle pelvic floor and abdominal stabilization today which went well. Physical Therapy Plan Next Visit Focus/Plan Next Note Type Treatment Note Next Visit Plan Continue to work on inner core stabilization, check in to see how pelvic decompression went for patient, EMG biofeedback for endurance strength training.
--- NOTE | 2021-04-09 15:31 | PT.OTN ---
Current Diagnoses Other female genital prolapse (04/09/21) Other specified symptoms and signs involving the digestive system and abdomen (04/09/21) History of uterine scar from previous surgery (04/09/21) Physical Therapy Treatment Note PT-OP-A Visit Information Start: 01/22/21 08:27 Freq: Status: Active Protocol: Document 04/09/21 14:15 [facility]B (Rec: 04/09/21 15:31 AMB [id number]) Out-Patient Physical Therapy Visit Information Visit Information Visit Type Treatment Note Visit Start Time 14:15 Visit Stop Time 15:00 Total Visit Minutes 45 Visit Number 6 PT-OP-B Current Condition Start: 01/22/21 08:27 Freq: Status: Active Protocol: Document 01/22/21 12:45 AMB (Rec: 01/22/21 13:12 AMB [id number]) Current Condition History of Current Condition Onset Date November 2020 Current Complaints Weakness post , urinary incontinence, abdominal pain ( R), History of Current Condition Shy is 7 weeks post after for twin boys. She also has twin boy 6 year olds at home who were also delivered via C- section. When she was 19 weeks she started bed rest after getting covid and getting labor. 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 She has noted R sided abdominal pain with bed mobility, bowel movements since the . She was constipated during but denies current constipation. Urinary leaking with lifting heavy. Has had difficulty initiating the stream of urine since being , feels like she has to push a little to start the flow of urine and then the urine just falls out. 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 Continues to have suprapubic cramping and heaviness at end of the day. PT-OP-I Pelvic Floor Start: 01/22/21 08:27 Freq: Status: Active Protocol: Document 03/21/21 15:20 [facility] (Rec: 03/21/21 16:30 [facility] [id number]) Pelvic Floor Assessment Pelvic Clock Pelvic Clock 12-3 Atrophy Pelvic Clock 9-12 Atrophy Pelvic Clock Other pt has difficulty with anterior pelvic floor contraction and there is swelling noted in the suprapubic region Prolapse Uterine Prolapse Grade 1 Cystocele Grade 1 Contraction Ability Voluntary Contraction Weak Voluntary Relaxation Weak Manual Muscle Testing Left 2 Manual Muscle Testing Right 2 Manual Muscle Testing Anterior 2 Manual Muscle Testing Posterior 3 Muscle Endurance (Seconds) 5 Number of Quick Contractions In 10 4 Seconds PT-OP-Q Treatments Start: 01/22/21 08:27 Freq: Status: Active Protocol: Document 04/09/21 14:15 AMB (Rec: 04/09/21 15:31 AMB [id number]) Manual Therapy Treatment Taping 1 Body Location herringbone pattern for diastasis Type of Tape Kinesio Tape Comments 4 I strips in herringbone pattern Neuro Re-Education Treatment Other Activities 1 Details sEMG Comments Avg 22, baseline 5, max 31 PT-OP-T Assessment and Plan Start: 01/22/21 08:27 Freq: Status: Active Protocol: Document 04/09/21 14:15 AMB (Rec: 04/09/21 15:31 AMB [id number]) Physical Therapy Assessment Goals Three Impairment pain Short Term Goal (STG) Shy will perform all bed mobility without right sided abdominal pain. pt notes she is doing better with bed mobility, she is still feeling the right sided abdominal pain STG Duration 4 weeks Elevator Adjuster Goal (LTG) Shy will be independent with a strengthening and scar mobilization HEP. GOAL MET LTG Duration 8 weeks Two Impairment pelvic floor/TA strength Short Term Goal (STG) Shy will improve her pelvic floor strength so that she can contract her pelvic floor for 10 seconds in standing. Goal not yet met STG Duration 4 weeks Shelter Goal (LTG) Shy will return to her gym exercise routine without abdominal coning or back pain. No coning present today with diastasis check, pt not yet returned to her gym program LTG Duration 8 weeks One Impairment continence Short Term Goal (STG) Shy will lift 20# from floor to waist height while bambi her pelvic floor to avoid leaking urine. Good progress STG Duration 4 weeks Shelter Goal (LTG) Shy will be able to relax her pelvic floor so that she can initiate the stream of urine without pushing. Good progress LTG Duration 8 weeks Assessment Summary Assessment Pt has been on pain meds so hard to say whether improving or not after thyroid surgery. Did well with sEMG but did fatigue with longer holds. 1 finger width seperation above umbilicus, 2 at umbiliucs. 1 below. Which is improving since eval. Continues to have lower abdominal heaviness with intercourse and standing at work. Would continue to recommend gentle strengthening progression. Physical Therapy Plan Frequency and Duration Frequency of Treatment 1x/Week Duration of Treatment 8 weeks Plan of Care Start Date 03/21/21 Plan of Care End Date 05/16/21 Therapeutic Interventions Therapeutic Interventions Home Exercise Program,Manual Therapy,Neuromuscular Re- education,Self-Care/Home Management,Therapeutic Activities,Therapeutic Exercises Next Visit Focus/Plan Next Note Type Treatment Note Next Visit Plan Continue to work on inner core stabilization, check in to see how pelvic decompression went for patient, EMG biofeedback for endurance strength training.
--- NOTE | 2021-05-15 11:14 | PT.OPDS ---
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 She also has twin boy 6 year olds at home who were also delivered via C- section. When she was 19 weeks she started bed rest after getting covid and getting labor. She works as a [employer] at an [employer], she is hoping to return to work there in a month or so. She has noted R sided abdominal pain with bed mobility, bowel movements since the . She was constipated during but denies current constipation. Urinary leaking with lifting heavy. Has had difficulty initiating the stream of urine since being , feels like she has to push a little to start the flow of urine and then the urine just falls out. 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 Continues to have suprapubic cramping and heaviness at end of the day. PT-OP-I Pelvic Floor Start: 01/22/21 08:27 Freq: Status: Active Protocol: Document 03/21/21 15:20 AMH (Rec: 03/21/21 16:30 AMH [id number]) Pelvic Floor Assessment Pelvic Clock Pelvic Clock 12-3 Atrophy Pelvic Clock 9-12 Atrophy Pelvic Clock Other pt has difficulty with anterior pelvic floor contraction and there is swelling noted in the suprapubic region Prolapse Uterine Prolapse Grade 1 Cystocele Grade 1 Contraction Ability Voluntary Contraction Weak Voluntary Relaxation Weak Manual Muscle Testing Left 2 Manual Muscle Testing Right 2 Manual Muscle Testing Anterior 2 Manual Muscle Testing Posterior 3 Muscle Endurance (Seconds) 5 Number of Quick Contractions In 10 4 Seconds PT-OP-T Assessment and Plan Start: 01/22/21 08:27 Freq: Status: Active Protocol: Document 05/15/21 11:10 AMB (Rec: 05/15/21 11:13 AMB [id number]) Physical Therapy Assessment Goals Three Impairment pain Short Term Goal (STG) Shy will perform all bed mobility without right sided abdominal pain. pt notes she is doing better with bed mobility, she is still feeling the right sided abdominal pain STG Duration 4 weeks Penitentiary Goal (LTG) Shy will be independent with a strengthening and scar mobilization HEP. GOAL MET LTG Duration 8 weeks Two Impairment pelvic floor/TA strength Short Term Goal (STG) Shy will improve her pelvic floor strength so that she can contract her pelvic floor for 10 seconds in standing. Goal not yet met STG Duration 4 weeks Systems Administrator Goal (LTG) Shy will return to her gym exercise routine without abdominal coning or back pain. No coning present today with diastasis check, pt not yet returned to her gym program LTG Duration 8 weeks One Impairment continence Short Term Goal (STG) Shy will lift 20# from floor to waist height while bambi her pelvic floor to avoid leaking urine. Good progress STG Duration 4 weeks Penitentiary Goal (LTG) Sofiane will be able to relax her pelvic floor so that she can initiate the stream of urine without pushing. Good progress LTG Duration 8 weeks Assessment Summary Assessment The patient has not scheduled any more appointments to continue therapy, at the last visit, she continued to have some abdominal heaviness with intercourse and standing, but has improved somewhat with her 6 visits of PT. She has not been seen in over a month so she is discharged at this time .
== END 2021-05-15 12:49 | disposition home or self-care (01) ==
LOC: PHYS 14:15
PROVIDERS: PCP Registered Nurse; Referring Provider Obstetrics & Gynecology; Visit Provider Obstetrics & Gynecology
DX: R19.8 Other specified symptoms and signs involving the digestive system and abdomen (principal); Z98.891 History of uterine scar from previous surgery; N81.89 Other female genital prolapse
CPT/HCPCS: 97110; 97112; 97140; 97162

== ENCOUNTER → 2021-04-17 14:59 | Outpatient (CLI) | payer OTHER, MEDICAID, SELFPAY ==
--- NOTE | 2021-04-17 | DI.RAD.S_ITS ---
PROCEDURE: XR WRIST RT MIN 3V INDICATIONS: RIGHT WRIST PAIN TECHNIQUE: 4 views of the wrist were acquired. COMPARISON: [facility], , WRIST MINIMUM 3 VIEWS LEFT, 09/29/2006, 10:52. FINDINGS: Bones: No fractures or dislocations. No suspicious bony lesions. Scaphoid view: Intact scaphoid. Soft tissues: No suspicious soft tissue calcifications. IMPRESSION: No acute fracture. No osseous lesion. If clinical suspicion and/orsymptoms persist, further assessment with repeat plainfilms, or advanced imaging (e.g., CT, MRI, or bone scan) may be helpful for further assessment. Dictated by: Tino SCHMIDT Interpreted: Danya Powers MD on 04/17/2021 at 15:16 Transcribed by: JACQUELINE on 04/17/2021 at 15:17 Approved by: Danya Powers M.D. on 04/17/2021 at 17:54
== END ==
PROVIDERS: PCP Registered Nurse; Referring Provider Nurse Practitioner Family; Visit Provider Nurse Practitioner Family
DX: M25.531 Pain in right wrist (principal)
CPT/HCPCS: 73110

== ENCOUNTER → 2021-06-26 17:28 | Outpatient (CLI) | payer OTHER, MEDICAID, SELFPAY ==
[2021-06-27 06:40] LABS: Candida species Negative (Negative); Gardnerella vaginalis Positive (Negative); Trichomoas vaginalis Negative (Negative)
[2021-06-28 12:36] LABS: Chlamydia trachomatis Negative (Negative); Mycoplasma genitalium Negative (Negative); Neisseria gonorrhoeae Negative (Negative)
== END ==
PROVIDERS: PCP Registered Nurse; Visit Provider Obstetrics & Gynecology
DX: N89.8 Other specified noninflammatory disorders of vagina (principal)
CPT/HCPCS: 87480; 87491; 87510; 87563; 87591; 87660

== ENCOUNTER → 2022-03-05 15:20 | Outpatient (CLI) | payer OTHER, MEDICAID, SELFPAY ==
[2022-03-05 16:11] LABS: COVID19 -Nasal RAPID Negative (Negative)
== END ==
PROVIDERS: PCP Registered Nurse; Visit Provider Obstetrics & Gynecology
DX: Z20.822 Contact with and (suspected) exposure to COVID-19 (principal); Z01.812 Encounter for preprocedural laboratory examination
CPT/HCPCS: 87635; C9803

== ENCOUNTER 2022-03-06 06:23 | Day surgery (SDC) | payer OTHER, MEDICAID, SELFPAY ==
[2022-03-03 10:52] VITALS: BMI 24.2
[2022-03-06] VITALS (18 sets, daily range): BP systolic 68–125; BP diastolic 45–83; PULSE 68–125; RESP 14–20; TEMP 35.9–37.1; O2SAT 93–100; BMI 24.2
--- NOTE | 2022-03-06 | PATH_ITS ---
[facility] Accession Number: [id number] . 01 Material submitted: . uterus - UTERUS . 01 Clinical history: . OPB . 01 Diagnosis: Uterus, Supracervical Hysterectomy: Endometrium: Early secretory phase endometrium. Myometrium: No significant pathologic abnormalities. Serosal surface: No significant pathologic abnormalities. MRV 03/10/2022 1902 Local . 01 Electronically signed: . Em Wilks MD, Pathologist NPI- [id number] . 01 Gross description: . Received in formalin in a specimen container, labeled with the patient's name and medical record number, uterus, is a morcellated uterus specimen that weighs 64 g and measures in aggregate 9.0 x 7.0 x 4.0 cm. The areas of serosal surface are pink, smooth, glistening and grossly unremarkable. Hemorrhagic areas grossly consistent with possible endometrial cavity is identified that measures 2.0 x 2.0 cm. The possible endometrium measures 0.4 cm in maximum thickness. A possible remnant of fallopian tube is identified and measures 0.4 cm in diameter. The myometrium cut surfaces are grossly unremarkable. Medical Laboratory Assistant sections are submitted in cassettes A1-A4 as follows: A1: Possible endometrium healthcare representative. A2: Possible fallopian tube surrounded by vessel surfaces healthcare representative. A3-A4: Myometrium. ([id number]) /FRR 03/08/2022 1133 Local . 01 Pathologist provided ICD-10: N92.1 . 01 CPT . 183852 Specimen Comment: A courtesy copy of this report has been sent to [phone] Performed at: 01 [facility] [address] [place] [address] [address], [place], [place] [id number] MD Yovani Padilla MD Phone: [phone]
[2022-03-06] MEDS: LACTATED RINGERS 1,000 ML 42 ML IV (06:50)
--- NOTE | 2022-03-06 07:48 | PM.PREOP ---
Pre-operative Note COVID-19 COVID-19 status: Negative Result date/Date tested (Pos, Neg/Pending): 03/05/22 Criteria for continued procedure: Non-surgical alternatives not available or appropriate per current SOC Interval Note History & Physical reviewed/Exam performed by Physician: Yes Changes to H&P: No H&P completed within 30 days and has changed as indicated here:: 02/28/22
[2022-03-06] MEDS: CEFAZOLIN 2 GM/20 ML SYRINGE IV (08:15)
--- NOTE | 2022-03-06 08:44 | SUR.OPER ---
Lithotomy on padded OR bed. [place] Square Pad Positioner under torso. Head on pillow, arms padded and tucked at sides. Legs secured in padded yellow fins stirrups. POSITION APPROVED BY SURGEON AND ANESTHESIA
[2022-03-06] MEDS: fentaNYL 100 MCG/2 ML INJ IV ×2 (08:50→09:44)
[2022-03-06] MEDS: BUPIVACAINE 0.5% (PF) 30 ML, EPINEPHrine 0.15 MG INJ (09:03)
[2022-03-06] MEDS: LACTATED RINGERS 1,000 ML 100 ML IV ×2 (09:04→12:25)
[2022-03-06] MEDS: ROPIVACAINE 0.2% PF 2 MG/ML 10ML AMP 20 ML INJ (09:28)
--- NOTE | 2022-03-06 09:59 | P.OP_ITS ---
Operative Date/Time/Diagnoses Date of procedure: 03/06/22 Time of procedure: 09:59 Pre-op diagnosis: Pelvic congestion Dysmenorrhea Menorrhagia Dyspareunia Postcoital bleeding Post-op diagnosis: same Procedure & Clinicians Procedure: Procedures Operation Date: 03/06/22 07:45 Actual Procedure Side Surgeon p Laparoscopic Supracervical Hysterectomy Milagros Smith MD Indications: Pelvic congestion Postcoital bleeding Dyspareunia Dysmenorrhea Menorrhagia Surgeon: Milagros Smith [employer] Supervisor: Lisa Bailey Anesthesia Type: General and Local Operative Notes Findings: 6 week size anteverted uterus Tubes previously surgically removed Normal liver Normal appendix Closure Type: primary Specimen(s): uterus Applied: catheter (Removed at the end of the case) Estimated blood loss (mL): 75 Blood products transfused: none Procedure in detail: The patient was taken to the operating room where she was placed in the dorsal supine position. After adequate general endotracheal anesthesia was achieved, she was placed in the dorsal lithotomy position, and prepped and draped in the usual sterile fashion. A timeout was performed. A bivalve speculum was placed into the vagina and the anterior lip of the cervix grasped with a single-tooth tenaculum. The cervical os was sequentially dilated until the ZUMI uterine manipulator could pass easily into the endometrial cavity. The single-tooth tenaculum was removed from the anterior lip of the cervix, and the bivalve speculum was removed from the vagina. Attention was then turned to the abdomen where 6 mL of half percent Marcaine with epinephrine were injected in the umbilical fold. A 5 mm incision was made. The Verees needle was placed into the peritoneal cavity, and its placement confirmed by aspiration and drop test. The Verees needle was removed. A 5 mm trocar was placed without difficulty. 2 other incisions were made 4 cm lateral to the umbilicus after 5 mL of half percent Marcaine with epinephrine were injected. These were 5 mm incisions. Two 5 mm trocars were placed under direct visualization. The cornua of the uterus was then grasped with an atraumatic grasper. The utero-ovarian ligaments were cauterized and cut. The round ligament and broad ligament was cauterized and cut with the power seal. Hemostasis was achieved. The bladder flap was created using the power seal with cautery and cut usp across. The uterine arteries on the right side were extensively cauterized with power seal. All of this was repeated on the left side. The remainder of the bladder flap was created using the Baldwin C, and the bladder taken down off the lower uterine segment and cervix. Using the Linaloop, the cervix was amputated from the uterus 2 cm above the uterosacral ligaments, after the ZUMI uterine manipulator was removed from the uterus. There was a small amount of bleeding noted from the posterior edge of the cervix, and this was cauterized for hemostasis. A sponge stick was placed into the vagina. The endocervical canal was cauterized with the spatula. 6 mL of half percent Marcaine with epinephrine were injected above the pubic symphysis. A 12 mm incision was made. A 12 mm trocar was placed. An Endobag was placed through the suprapubic trocar and the uterus placed into the Endobag. The trocar was removed. The edges of the endobag were brought up through the skin. The uterus was grasped with a Radha. The Efraín was placed into the endobag. The uterus was hand morcellated in approximately 10 pieces. The Endobag was removed from the peritoneal cavity with the Efraín. The pelvis was copiously irrigated with warm normal saline. No bleeding was noted. 20 cc of 0.2% ropivacaine were placed over the pedicles. The instruments were removed from the abdomen. The CO2 was allowed to escape. The suprapubic incision was closed on the fascia with 0 Vicryl. The subcutaneous layer was reapproximated using 3-0 Vicryl with 2 simple interrupted sutures. All of the incisions were closed with 4-0 Biosyn in a subcuticular fashion. Steri-Strips and Allevyn dressings were placed. The moistened sponge stick was removed from the vagina. Sponge, lap, and instrument counts were correct x-2. The patient tolerated the procedure well, was taken to PACU in stable condition. A laparoscopic supracervical hysterectomy and bilateral salpingectomy Complications: none Post-operative Condition: stable Disposition: PACU Plan for aftercare: To acute care after recovery
[2022-03-06] MEDS: OXYCODONE/ACETAMINOPHEN 5/325 TABLET 1 TAB PO (10:03)
[2022-03-06] MEDS: KETOROLAC 30 MG/ML VIAL IV ×3 (11:16→22:51)
[2022-03-06] MEDS: METOCLOPRAMIDE 10 MG/2 ML INJ IV (12:24)
--- NOTE | 2022-03-06 13:17 | PC.NURSE ---
1120 Recieved patiet from PACU, alert and oriented x3,pain scale of 4/10, 4x small dressings in place on abdomen,C/D,on bed.no other complsints 1116 Toradol #1 given IV for Pain scale of 5/10,resting in bed. 1224 patient c/o nausea, gave her reglan; no emesis; comfortable
[2022-03-06] MEDS: ACETAMINOPHEN 325 MG TABLET 650 MG PO ×2 (14:54→22:37)
--- NOTE | 2022-03-06 18:44 | PC.NURSE ---
1840 patient comfortable, resting watching TV.Ice pack to abdomen today.Has small bleed x2 under incision site ( 4x4)
[2022-03-06] MEDS: hydrOXYzine pamoate 25 MG CAPSULE PO (19:27)
--- NOTE | 2022-03-06 20:41 | PC.NURSE ---
1930 pt. is sitting in rocking chair requesting pain medicine. Gave pt. options, she declined oxycodone but was willing to try hydroxyzine as she wanted to try to sleep.
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
[2022-03-06] MEDS: OXYCODONE IR 5 MG TABLET PO (22:35)
[2022-03-06] MEDS: DOCUSATE 100 MG CAPSULE 200 MG PO (22:38)
--- NOTE | 2022-03-06 23:00 | PC.NURSE ---
[address] May that pt.'s BP was 68/45, HR 125, seeing spots, voices sound far away. Dr. May said to encourage pt to increase oral fluids, have CBC done in am, assess BP frequently and he will assess in the am.
--- NOTE | 2022-03-06 23:03 | PC.NURSE ---
2300 pt. BP is rising (see VS record), HR decreasing, pt. is not longer seeing spots, voices sound normal to her, color is returning.
--- NOTE | 2022-03-06 23:06 | PC.NURSE ---
CHONG OBS Went into patients for Q4 VS, Pt complained of pain and I assured her that the RN was in the process of getting her medication after applying the BP cuff to the left bicep she started to complain of feeling dizzy. Blood pressure machine eroded for patient error (Blood Pressure to low) after X2 of retrying BP came back 68/45 with [address] patient into trendelenburg from 90 degrees she refused X4. Patient was flush with no color to her lips and dark circles around her eyes. She stated hat she could see stars and that our voices are far away and hard to our voices. Blood pressures started to stabilize to baseline. Checking VS again in an hour.
[2022-03-07] MEDS: ZOLPIDEM 5 MG TABLET PO (00:01)
[2022-03-07 00:17] VITALS: BP 98/66; PULSE 89; RESP 17; O2SAT 99
--- NOTE | 2022-03-07 00:35 | PC.NURSE ---
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 PT got out of bed indp. and used the bathroom indp w/o dizziness or lightheadedness. PT is now stable at her baseline and would like to take a nap.
[2022-03-07 03:00] VITALS: BP 88/58; PULSE 84; RESP 16; TEMP 36.9
--- NOTE | 2022-03-07 03:44 | PC.NURSE ---
0300 Pt. denies any symptoms spots before her eyes or dizziness.
[2022-03-07 06:57] LABS: Add Manual Diff / Slide Review NO; Basophils Absolute Auto 0 /uL (0-100); Basophils Percent Auto 0.1 % (0-2); Eosinophils Absolute Auto 0 /uL (0-450); Eosinophils Percent Auto 0.3 % (2-4); Hematocrit 25.7 % (36-46); Hemoglobin 8.7 g/dL (12.0-16.0); Lymphocytes Absolute Auto 2400 /uL (1100-4500); Lymphocytes Percent Auto 16.8 % (25-40); Mean Corpuscular HGB Conc 33.9 % (30-36); Mean Corpuscular Hemoglobin 27.8 PG (26-34); Monocytes Absolute Auto 1100 /uL (0-900); Monocytes Percent Auto 7.7 % (3-14); Neutrophils Absolute Auto 11000 /uL (1500-7000); Neutrophils Percent Auto 75.1 % (50-75); Platelet Count 285 X10^3/uL (150-400); Red Blood Cell Count 3.14 X10^6/uL (4.0-5.2); Red Cell Distribution Width 13.3 % (11.6-14.8); White Blood Cell Count 14.6 X10^3/uL (4.5-11.0)
[2022-03-07 07:39] VITALS: BP 97/63; PULSE 82; RESP 16; TEMP 36.7
--- NOTE | 2022-03-07 07:40 | PC.NURSE ---
0730- pt sitting up in bed, No complaints at this time. 4, square surgical dressings on her left, mid, right and lower abdomen. Clean and intact. Mid has some light drainage as well as the lower.
[2022-03-07] MEDS: DOCUSATE 100 MG CAPSULE 200 MG PO (08:30)
[2022-03-07] MEDS: ACETAMINOPHEN 325 MG TABLET 650 MG PO (08:30)
[2022-03-07 09:10] LABS: Add Manual Diff / Slide Review NO; Basophils Absolute Auto 0 /uL (0-100); Basophils Percent Auto 0.1 % (0-2); Eosinophils Absolute Auto 100 /uL (0-450); Eosinophils Percent Auto 0.5 % (2-4); Hemoglobin 8.6 g/dL (12.0-16.0); Lymphocytes Absolute Auto 2700 /uL (1100-4500); Lymphocytes Percent Auto 20.4 % (25-40); Mean Corpuscular HGB Conc 34.2 % (30-36); Mean Corpuscular Hemoglobin 27.8 PG (26-34); Mean Corpuscular Volume 81.3 fL (80-100); Monocytes Absolute Auto 1000 /uL (0-900); Monocytes Percent Auto 7.5 % (3-14); Neutrophils Absolute Auto 9600 /uL (1500-7000); Neutrophils Percent Auto 71.5 % (50-75); Platelet Count 275 X10^3/uL (150-400); Red Blood Cell Count 3.08 X10^6/uL (4.0-5.2); Red Cell Distribution Width 13.3 % (11.6-14.8); White Blood Cell Count 13.4 X10^3/uL (4.5-11.0)
--- NOTE | 2022-03-07 10:25 | PC.NURSE ---
1015- pt. resting in bed, denies any pain. D/C plan went over with pt, she agrees to plan. Awaiting DC order from .
--- NOTE | 2022-03-07 11:18 | PC.NURSE ---
1115- pt discharged in stable condition, ambulatory. Pt decided to walk. Discharge instructions given, pt verbalized understanding and signed paperwork.
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
== END 2022-03-07 11:15 | disposition home or self-care (01) ==
LOC: OR 06:24 → AC 06:25 → LABOR 03-07 08:45 → OR 03-08 15:20
PROVIDERS: PCP Registered Nurse; Referring Provider Obstetrics & Gynecology; Visit Provider Obstetrics & Gynecology
PROC: 0UT94ZL Resection of Uterus, Supracervical, Percutaneous Endoscopic Approach (ICD-10-PCS; CPT 58541; principal; 2022-03-06 07:45)
DX: N92.1 Excessive and frequent menstruation with irregular cycle (principal); N93.0 Postcoital and contact bleeding; N94.6 Dysmenorrhea, unspecified; N94.89 Other specified conditions associated with female genital organs and menstrual cycle; N94.10 Unspecified dyspareunia; Z87.891 Personal history of nicotine dependence
CPT/HCPCS: 58541; 36415; 85025; G0378; J0171; J0690; J1100; J1885; J2250; J2405; J2704; J2765; J2795; J3010

== ENCOUNTER 2022-08-30 14:11 | Emergency (ER) | payer OTHER, SELFPAY ==
[2022-08-30 14:15] VITALS: BP 124/83; PULSE 81; RESP 18; TEMP 36.7; O2SAT 99; BMI 23.1
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
[2022-08-30] MEDS: KETOROLAC 30 MG/ML VIAL 15 MG IM (16:12)
[2022-08-30] MEDS: LIDOCAINE PATCH 1 EACH ADH..PATCH TOP (16:13)
--- NOTE | 2022-08-30 16:21 | PC.NURSE ---
c-collar removed by provider Jayna Jama
[2022-08-30 16:45] VITALS: BP 102/76; PULSE 61; O2SAT 97
== END 2022-08-30 17:04 | disposition home or self-care (01) ==
PROVIDERS: Emergency Provider Nurse Practitioner Critical Care Medicine; PCP Registered Nurse
DX: S09.90XA Unspecified injury of head, initial encounter (principal); M54.2 Cervicalgia; M25.561 Pain in right knee; S13.4XXA Sprain of ligaments of cervical spine, initial encounter; S46.812A Strain of other muscles, fascia and tendons at shoulder and upper arm level, left arm, initial encounter; V43.52XA Car driver injured in collision with other type car in traffic accident, initial encounter; Y99.0 Civilian activity done for income or pay
CPT/HCPCS: 73562; 96372; 99283; 99284; J1885

== ENCOUNTER 2023-02-04 20:42 | Emergency (ER) | payer OTHER, SELFPAY ==
[2023-02-04 20:46] VITALS: BP 131/75; PULSE 104; RESP 20; TEMP 36.8; O2SAT 99; BMI 24.0
--- NOTE | 2023-02-04 21:31 | DI.US.S_ITS ---
PROCEDURE: US PERIPH VENOUS LOW EXTREM RT INDICATIONS: PAIN 8 DAYS POST ARTHROSCOPIC KNEE SURGERY TECHNIQUE: Real-time imaging, as well as color and pulse Doppler interrogation, were performed of the lower extremity deep veins from the inguinal ligament to the popliteal fossa. COMPARISON: None. FINDINGS: The common femoral, femoral and popliteal veins are normally compressible, and free of intraluminal thrombus. Color and pulse Doppler demonstrate normal phasic intraluminal flow. There is normal augmentation response to distal compression maneuver. IMPRESSION: 1. No evidence of deep venous thrombosis in the right lower extremity. Dictated by: Yovani Pulliam M.D. on 02/04/2023 at 23:35 Approved by: Yovani Pulliam M.D. on 02/04/2023 at 23:35
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
--- NOTE | 2023-02-04 21:38 | PC.NURSE ---
Pain behind R knee and down calf s/p meniscal repair. No redness noted
[2023-02-04] MEDS: HYDROMORPHONE 1 MG INJ IM (21:43)
== END 2023-02-04 22:35 | disposition home or self-care (01) ==
PROVIDERS: Emergency Provider Emergency Medicine; PCP Registered Nurse
DX: G89.18 Other acute postprocedural pain (principal)
CPT/HCPCS: 93971; 96372; 99283; J1170

== ENCOUNTER → 2023-09-28 15:04 | Outpatient (CLI) | payer OTHER, MEDICAID, SELFPAY | PROVIDERS: PCP Registered Nurse; Visit Provider Registered Nurse | DX: J02.9 Acute pharyngitis, unspecified (principal) | CPT/HCPCS: 87070; 87880 ==

== ENCOUNTER → 2023-10-02 06:48 | Outpatient (CLI) | payer OTHER, MEDICAID, SELFPAY ==
--- NOTE | 2023-10-02 06:50 | DI.US.S_ITS ---
PROCEDURE: US SOFT TISSUE HEAD AND NECK INDICATIONS: Neck swelling TECHNIQUE: Real-time scanning was performed of the neck region of interest, with image documentation. COMPARISON: None. FINDINGS: Left-sided thyroidectomy. Right thyroid lobe measures 4.6 x 1.3 x 1.7 cm. Isthmus measures 0.3 cm. A couple of right-sided thyroid nodules are present. These include: 0.5 x 0.3 x 0.3 cm solid, hypoechoic nodule with smooth margins and no internal echogenic foci. TI-RADS 4. 1.4 x 1.0 x 1.0 cm mixed cystic and solid, isoechoic nodule with smooth margins and no internal echogenic foci.TI-RADS 3. IMPRESSION: Left thyroidectomy. Right-sided thyroid nodules which do not meet size criteria for biopsy. Recommend 1 year follow-up. Dictated by: Sharan Henry M.D. on 10/02/2023 at 9:43 Approved by: Sharan Henry M.D. on 10/02/2023 at 9:48
== END ==
LOC: US 06:49
PROVIDERS: PCP Registered Nurse; Referring Provider Registered Nurse; Visit Provider Registered Nurse
DX: E04.2 Nontoxic multinodular goiter (principal); R22.1 Localized swelling, mass and lump, neck; E89.0 Postprocedural hypothyroidism
CPT/HCPCS: 76536

== ENCOUNTER 2024-04-04 08:28 | Day surgery (SDC) | payer OTHER, MEDICAID, SELFPAY ==
[2024-03-29 14:48] VITALS: BMI 22.6
[2024-04-04] VITALS (13 sets, daily range): BP systolic 97–115; BP diastolic 61–78; PULSE 64–89; RESP 14–20; TEMP 36.1–36.6; O2SAT 95–100; BMI 23.1
[2024-04-04] MEDS: LACTATED RINGERS 1,000 ML 42 ML IV (08:38)
[2024-04-04] MEDS: ALBUTEROL/IPRATROPIUM 3 ML AMPUL INH (08:39)
[2024-04-04] MEDS: SCOPOLAMINE 1 PATCH TOP (08:39)
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
--- NOTE | 2024-04-04 09:40 | PM.PREOP ---
Pre-operative Note Interval Note History & Physical reviewed/Exam performed by Physician: Yes Changes to H&P: No H&P completed within 30 days and has changed as indicated here:: 04/04/24
[2024-04-04] MEDS: CEFAZOLIN 2 GM/100 ML PREMIX 100 ML IV (10:50)
[2024-04-04] MEDS: ACETAMINOPHEN IV 1,000 MG/100 ML VIAL 400 MG IV (11:00)
--- NOTE | 2024-04-04 11:12 | SUR.OPER ---
Lithotomy on padded OR bed, head on pillow, arms secured, padded and tucked at side, Legs secured in padded yellow fins stirrups.
[2024-04-04] MEDS: BUPIVACAINE 0.5% (PF) 30 ML, EPINEPHrine 0.15 MG INJ (11:23)
--- NOTE | 2024-04-04 12:12 | P.OP_ITS ---
Operative Date/Time/Diagnoses Date of procedure: 04/04/24 Time of procedure: 12:13 Pre-op diagnosis: Symptomatic cystocele Pelvic pain Bleeding from the endocervical canal after laparoscopic supracervical hysterectomy Post-op diagnosis: same Procedure & Clinicians Procedure: Procedures Operation Date: 04/04/24 09:45 Actual Procedure Side Surgeon p Anterior Repair, cautery of endocervical canal Milagros Smith MD s Diagnostic laparotomy lysis of adhesions and fulgeration of endometriosis Right Milagros Smith MD Surgeon: Milagros Smith Commission Associate: Tricia Mcdaniel Anesthesia Type: General and Local Operative Notes Findings: Uterus surgically absent. 2 areas of endometriosis on the cervical stump Normal ovaries bilaterally Normal liver and gallbladder Omental to anterior abdominal wall adhesions 2-3 degree cystocele Closure Type: primary Specimen(s): none Applied: catheter (To continuous drainage) Estimated blood loss (mL): 50 Blood products transfused: none Procedure in detail: After informed consent was obtained, the patient was taken to the operating room where she was placed in the dorsal supine position. After adequate general endotracheal anesthesia was achieved, she was placed in the dorsal lithotomy pos ition, and prepped and draped in the usual sterile fashion. A moistened sponge stick was placed into the vagina. Attention was then turned to the abdomen where 6 cc of 0.5% Marcaine with epinephrine were injected in the umbilical fold through the previous incision. A 5 mm incision was made. The Veress needle was placed into the peritoneal cavity, and its placement confirmed by aspiration and drop test. The abdominal cavity was insufflated with 3.2 L of CO2. The Veress needle was removed, and a 5 mm trocar was placed without difficulty. A second incision was made 4 cm left lateral to the umbilicus after 6 cc of 0.5% Marcaine with epinephrine were injected. A second 5 mm trocar was placed under direct visualization through the previous incision. Using the probe the pelvis and abdomen were examined with the findings noted above. The spatula cautery was used to fulgurate 2 areas of endometriosis on the cervical stump. The instruments were removed from the abdomen. The CO2 was allowed to escape. The incisions were repaired with 4-0 Monocryl in a subcuticular fashion. Steri- Strips and Allevyn dressings were placed. Attention was turned to the vagina where the sponge stick was removed from the vagina. A bivalve speculum was placed and the anterior lip of the cervix was grasped with a single-tooth tenaculum. The cervix was measured with a uterine sound and measured 3 0.5 cm. Using the long Bovie the endocervical canal was extensively cauterized. The single-tooth tenaculum was removed from the anterior lip of the cervix. The bivalve speculum was removed from the vagina. A weighted speculum was placed into the vagina. Two narrow Allis clamps were placed at the apex of the cystocele and wide Allis clamps placed in the midline. 10 cc of 0.25% Marcaine were injected submucosally. An incision was made between the 2 narrow Allis clamps and the mucosa was undermined and excised in the midline, moving the wide Allis clamps to the mucosal edges. This continued to within 1-1/2 cm of the urethral meatus. The underlying fascia was dissected off of the mucosa using an open moistened Ray-Ana Maria in a #10 blade. The fascia was reapproximated with 0 Vicryl with simple interrupted sutures. The excess vaginal mucosa was excised. The mucosa was closed with simple interrupted sutures using 2-0 Vicryl. Hemostasis was achieved. A Betadine moistened vaginal pack was placed into the vagina. A catheter was left in the bladder. Sponge, lap, and instrument counts were correct x2. The patient tolerated the procedure well, and was taken to PACU in stable condition. Complications: none Post-operative Condition: stable Disposition: PACU Plan for aftercare: To acute care after recovery
[2024-04-04] MEDS: LACTATED RINGERS 1,000 ML 21 ML IV (12:15)
--- NOTE | 2024-04-04 12:17 | SUR.PHASEI ---
Received to PACU after general anesthesia. Oral airway removed on arrival to PACU. Report received from Roberto Carlos Holloway CRNA and WALTER Kruse.
[2024-04-04] MEDS: HYDROMORPHONE 1 MG INJ IV (12:26)
[2024-04-04] MEDS: OXYCODONE IR 5 MG TABLET PO ×2 (12:37→15:52)
--- NOTE | 2024-04-04 12:38 | SUR.PHASEI ---
Per Roberto Carlos Holloway, LITO, pt bit her right lower lip during extubation. Ice glove applied to lip.
[2024-04-04] MEDS: KETOROLAC 30 MG/ML VIAL IV (18:46)
[2024-04-04] MEDS: DOCUSATE 100 MG CAPSULE 200 MG PO (20:08)
[2024-04-04] MEDS: OXYCODONE IR 5 MG TABLET 10 MG PO (20:08)
[2024-04-04] MEDS: LACTATED RINGERS 1,000 ML 100 ML IV (20:11)
[2024-04-04] MEDS: ACETAMINOPHEN 325 MG TABLET 650 MG PO (22:07)
[2024-04-05] VITALS: BP 102/62; PULSE 67; RESP 16; TEMP 36.9; O2SAT 98
[2024-04-05] MEDS: KETOROLAC 30 MG/ML VIAL IV ×3 (00:30→13:00)
[2024-04-05] MEDS: OXYCODONE IR 5 MG TABLET 10 MG PO ×4 (00:33→13:00)
[2024-04-05] MEDS: ACETAMINOPHEN 325 MG TABLET 650 MG PO ×2 (04:07→09:26)
[2024-04-05 04:32] VITALS: BP 112/67; PULSE 58; RESP 18; TEMP 36.8; O2SAT 96
[2024-04-05] MEDS: LACTATED RINGERS 1,000 ML 100 ML IV (05:59)
[2024-04-05 07:00] VITALS: BP 109/74; PULSE 53; RESP 16; TEMP 36.6; O2SAT 100
[2024-04-05] MEDS: ALPRAZolam 0.25 MG TABLET PO (09:26)
[2024-04-05] MEDS: DOCUSATE 100 MG CAPSULE 200 MG PO (09:26)
[2024-04-05] MEDS: OXYCODONE IR 5 MG TABLET PO (11:27)
[2024-04-05] MEDS: ONDANSETRON 4 MG/2 ML INJ IV (13:00)
[2024-04-05] MEDS: HYDROMORPHONE 2 MG TABLET PO (13:01)
--- NOTE | 2024-04-05 13:14 | PC.NURSE ---
Pt verbalized understanding of D/C instructions, how to take all medications, all questions answered. Pt had her bag with cellphone, engine turner, and wallet.
--- NOTE | 2024-04-05 13:22 | CM.DANOTE ---
Discharge Planning/Care Management CM Discharge Assessment Start: 04/05/24 13:18 Freq: Status: Active Protocol: Document 04/05/24 13:19 CHARLEEN (Rec: 04/05/24 13:21 CHARLEEN [id number]) Discharge Planning Assessment Assigned Senior Clinical Project Manager GAUTAM Shaffer/Assigned Designee Name Hasmukh Kaufman CASSIDY Contact Information [phone] Advance Directives? No History Provided By Patient,Medical Record Prior Living Arrangements House Household Members significant other,children Type of transporation used prior to Drives own vehicle admit Independent with ADL's Yes Is patient alert and oriented? Yes Barriers to Discharge No Comment Back to functional baseline, DC home w/SO to assist as needed. Discharge Plan Home Transportation Arrangement SO Referrals Initiated None needed
== END 2024-04-05 13:14 | disposition home or self-care (01) ==
LOC: OR 08:28 → AC 08:29
PROVIDERS: PCP Registered Nurse; Referring Provider Obstetrics & Gynecology; Visit Provider Obstetrics & Gynecology
PROC: (CPT 58662; principal; 2024-04-04 09:45)
PROC: (CPT 58662; 2024-04-04 09:45)
DX: N81.10 Cystocele, unspecified (principal); N93.8 Other specified abnormal uterine and vaginal bleeding; N80.00 Endometriosis of the uterus, unspecified; K66.0 Peritoneal adhesions (postprocedural) (postinfection)
CPT/HCPCS: 58662; 57240; 57510; 57420; 81025; J0136; J0171; J0690; J1100; J1170; J1885; J2250; J2405; J2704; J3010

== ENCOUNTER → 2024-04-22 17:29 | Outpatient (CLI) | payer OTHER, MEDICAID, SELFPAY ==
[2024-04-04 13:36] VITALS: BMI 23.1
== END ==
PROVIDERS: PCP Registered Nurse; Visit Provider Obstetrics & Gynecology
DX: R39.15 Urgency of urination (principal)
CPT/HCPCS: 87086

== ENCOUNTER → 2024-04-23 12:20 | Outpatient (CLI) | payer OTHER, MEDICAID, SELFPAY ==
[2024-04-04 13:36] VITALS: BMI 23.1
[2024-04-23 12:57] LABS: Amorphous Sediment Urine 1+; Bacteria Urine Few (2-10); RBC Urine None Seen (0-5/HPF); Squamous Epithelial Cell Urine 0-1 /HPF (0-5/HPF); Urine Volume 10mL (spun); WBC Urine 5-10/HPF (0-5/HPF)
[2024-04-23 12:58] LABS: Culture Indicated Urine Specimen Cultured
== END ==
PROVIDERS: PCP Registered Nurse; Referring Provider Obstetrics & Gynecology; Visit Provider Obstetrics & Gynecology
DX: R39.15 Urgency of urination (principal)
CPT/HCPCS: 81015; 87086

== ENCOUNTER 2025-02-02 07:48 | Day surgery (SDC) | payer OTHER, SELFPAY ==
[2024-04-04 13:36] VITALS: BMI 23.1
[2025-01-30 14:29] VITALS: BMI 23.1
[2025-02-02] VITALS (17 sets, daily range): BP systolic 98–117; BP diastolic 54–78; PULSE 54–110; RESP 13–20; TEMP 36–36.4; O2SAT 95–99; BMI 21.8; BMI 17.0
--- NOTE | 2025-02-02 | PATH_ITS ---
[facility] Accession Number: [id number] No. of containers..03 Tissue . 01 Material submitted: . PART A: ovary - LEFT OVARY HEMORRAGIC CYST PART B: peritoneum - PERITONEAL PART C: cervix - CERVIX . 01 Diagnosis: A. LEFT OVARY, HEMORRHAGIC CYST, BIOPSY: Fragments of hemorrhagic corpus luteum cyst. Negative for atypia or malignancy. Negative for endometriosis. . Note: Initial and deeper levels examined. . B. PERITONEUM, BIOPSY: Fibroadipose tissue with scar-like fibrosis and degeneration. Focal area with evidence of old hemorrhage, without endometrial-type glands or stroma; negative for definite endometriosis. Negative for atypia or malignancy. . Note: Initial and multiple deeper levels examined. . C. CERVIX, EXCISION: Cervical tissue with prior instrumentation changes and associated reactive/reparative changes. Focal area with endometrial-like glands present, favor lower uterine segment origin over endometriosis. Negative for dysplasia and malignancy. [facility] 02/10/2025 1810 Local . 01 Comment: Selected slides (A1, B1, C9 and C10) have also been reviewed by Dr. Carla Chung, who agrees with the interpretation. . 01 Electronically signed: . Adolfo Felipe MD, Pathologist NPI- [id number] . 01 Gross description: . A. Received in formalin with two identifiers and L ovary hemorrhagic cyst, are two irregular fragments of chaney to brown soft tissue, 0.6 x 0.5 x 0.2 cm and 0.9 x 0.5 x 0.2 cm. The fragments are submitted intact in A1. B. Received in formalin with two identifiers and peritoneal BX, is an irregular chaney to violaceous soft tissue fragment, 1.6 x 1.2 x 0.4 cm. One aspect is inked blue, and the specimen is serially sectioned and submitted entirely in B1. C. Received in formalin with two identifiers and cervix, is an unoriented cervix measuring 3.1 x 3.0 cm and 5.5 cm in length, consistent with removal of cervix post supracervical hysterectomy. The ectocervix is chaney and wrinkled with a patulous os, 0.8 cm in diameter. The cervical canal ends at the cervical stump with a thin membranous surgical site with the probe grossly visible beneath the tissue. The cervical stump site is roughened and hemorrhagic and is inked orange while the remaining stromal margins are inked blue. The endocervical canal has chaney herringbone mucosa with no lesions identified. . [employer] sections to include entire ectocervix are submitted as follows: C1-C8: Ectocervix sequential quadrants with composite quadrants in C1-C2, C3-C4, C5-C6, C7-C8. C9-C10: Longitudinal endocervical canal with deep cervical stump. C11: Additional deep cervical stump surface. ([id number]) /MRV 02/03/20251958 Local . 01 Pathologist provided ICD-10: N93.9 . 01 CPT . 368383, [id number], [id number] Specimen Comment: A courtesy copy of this report has been sent to [phone] Performed at: [address] [address], [place], [place] [id number] MD Yovani Padilla MD Phone: [phone]
[2025-02-02] MEDS: SCOPOLAMINE 1 PATCH TOP (08:12)
[2025-02-02] MEDS: LACTATED RINGERS 1,000 ML 42 ML IV ×2 (08:12→10:52)
[2025-02-02] MEDS: ACETAMINOPHEN 325 MG TABLET 975 MG PO (08:12)
--- NOTE | 2025-02-02 09:30 | PM.PREOP ---
Pre-operative Note COVID-19 COVID-19 status: Not tested Interval Note History & Physical reviewed/Exam performed by Physician: Yes Changes to H&P: No
[2025-02-02] MEDS: CEFAZOLIN 2 GM/100 ML PREMIX 100 ML IV (09:57)
--- NOTE | 2025-02-02 10:36 | SUR.OPER ---
Lithotomy on padded OR bed. Ho-Ho-Kus Pad Positioner under torso. Head on pillow, arms padded and tucked at sides. Upper body secured with strap. Legs secured in padded yellow fins stirrups.
[2025-02-02] MEDS: BUPIVACAINE 0.5% W/ EPI (PF) 30 ML VIAL INJ (10:59)
[2025-02-02] MEDS: ROPIVACAINE 0.2% PF 2 MG/ML 20ML AMP 20 ML INJ (11:29)
--- NOTE | 2025-02-02 11:50 | PM.GYNOP.1 ---
Operative Date/Time/Diagnoses Date of procedure: 01/31/25 Time of procedure: 10:15 Pre-op diagnosis: Cyclic vaginal bleeding status post laparoscopic supracervical hysterectomy History of pelvic peritoneal endometriosis Post-op diagnosis: same Procedure & Clinicians Procedure: Procedures Operation Date: 02/02/25 09:00 Actual Procedure Side Surgeon p Laparoscopy, Diagnostic, ELECTRONIC SECURITY SPECIALIST Adrian May MD s Trachelectomy Adrian May MD Indications: Shy is a 29-year-old LC 4 who presents with the aforementioned complaints. Patient had bilateral salpingectomy performed at the time of her 2nd in 2020. She subsequently underwent laparoscopic supracervical hysterectomy in February 2022 due to menometrorrhagia. Because of the development of a cystocele, pelvic pain, and persistent episodic bleeding, the patient underwent laparoscopy in March 2024 along with cystocele repair, and electrocoagulation of the endocervical canal. Laparoscopy revealed 2 endometrial implants on the cervical stump which were removed. Patient's bleeding was resolved up until about 3 months ago when she began having cyclic episodes of vaginal spotting/bleeding which have become progressively heavier over the last 3 months. In addition she has begun having right-sided pelvic pain over the last month or so which is worsening and is also associated with deep dyspareunia. The pain she has on the right side of the pelvis is a constant stabbing pain which typically has a rather sudden onset and radiates into her back as well as the right groin, sometimes radiating over to the left side of the pelvis without the stabbing sensation. We had an extended discussion regarding potential causes for both her bleeding as well as her pain. As was noted at the time of her most recent surgery in March 2024, the patient had endometriotic implants involving the cephalad surface of the cervical stump. With resumption of vaginal bleeding from the cervical stump 3 months ago, the patient has now developed increasingly intense right-sided pelvic pain and pain with deep penetration. Exam today shows the stump to be generous in size and there is a tender nodule palpable through the right fornix which duplicates the patient's pelvic pain. While the patient is having bleeding coming from the cervical stump through the external os vaginally, it is also likely that she is experiencing bleeding which is going cephalad and creating areas of endometriosis at the apex of the stump and it seems like now off to the right side as well. This would essentially be a process of retrograde menses into the retroperitoneal space immediately cephalad to the cervical stump and adjacent tissues. After discussion of all options, the patient would like to proceed with combined laparoscopic and vaginal trachelectomy for relief of her pelvic pain and episodic/cyclic spotting/bleeding. She presents today for her scheduled surgery. Surgeon: Adrian May School Program Director: Anupama Hurtado Anesthesia Type: General Operative Notes Findings: The body of the cervix is approximately 3.5 cm in length. There was no evidence of peritoneal endometriosis in the pelvis but there is significant scarring immediately superior to the cervical stump particularly on the right-hand side. All of the scar tissue was removed laparoscopically during the course of the surgery. There was a one-2 cm hemorrhagic cyst on the surface of the left ovary which was removed during the course of the of the procedure over concerned that it may represent endometriosis although it did not appear to be endometriotic tissue. Two remainder of the pelvis and abdomen were normal to laparoscopic inspection. Closure Type: primary Specimen(s): ovarian biopsy and other (Peritoneal biopsy, cervical stump) Applied: none Estimated blood loss (mL): 125 Blood products transfused: none Procedure in detail: With the patient under satisfactory general anesthesia, the perineum, vagina, and abdomen were prepped and draped in the usual manner for surgery periods a pre-surgical safety time-out was then taken in accordance with [facility] OR protocols. A double tooth tenaculum was applied to the cervix after insertion of a speculum in the vagina and attention was turned to laparoscopy. The umbilicus was infiltrated with 0.25% Marcaine with epinephrine and a 1 cm transverse incision was made in the skin of the infraumbilicus. A Veress needle was then used to insufflate the abdomen with carbon dioxide in once appropriately insufflated, a 5 mm trocar and sleeve was placed through the umbilical incision. Correct placement in the abdominal cavity was confirmed a right direct visualization and a 2nd and 3rd 5 mm port were inserted in the left and right mid quadrant using a similar technique. Using a 3 puncture technique, the pelvis and abdomen were inspected carefully the findings were noted above. Photographic documentation was also obtained. The hemorrhagic cyst was excised from the surface of the left ovary and submitted as a pathologic specimen. The area of excision was rendered hemostatic with judicious use of monopolar cautery. The area of scarring at the top of the cervical stump was then excised using monopolar cutting current and bleeding was controlled with monopolar cautery. Once the areas of scarring were removed, the vaginal portion of the trachelectomy was initiated. Her weight is speculum was placed in the vagina and the cervix was grasped with a single-tooth tenaculum. The portio was infiltrated with 0.5% Marcaine with epinephrine and a circumferential incision was made using electro cutting current. The bladder was advanced with a Ray-Ana Maria and attention was turned to the posterior colpotomy. The posterior colpotomy was performed easily and the peritoneum tacked. The uterosacral ligaments on both sides were then taken with Flip Gunnison clamps and secured with 0 Vicryl transfixing sutures. A long weighted speculum was then placed into the posterior cul-de-sac and attention was turned to completion of the anterior colpotomy. Entry into the anterior cul-de-sac was easily made and a Flip retractor was placed through the defect. The handheld LigaSure device was then used to secure each pedicle with bipolar current up to the top of the cervical stump and the cervical stump itself was removed and submitted as a pathologic specimen. 0 Vicryl [id number] stitches were used to incorporate the uterosacral ligaments in the angle of both sides of the vaginal cuff and the remainder of the vaginal cuff was then closed with [id number] interrupted 0 Vicryl suture. A sponge stick was placed in the vagina and the abdomen was re-insufflated for laparoscopy. There was a small amount of peritoneal bleeding at the site of the trachelectomy which was easily controlled with judicious use of monopolar current. Once complete hemostasis in the pelvis was assured, 20 cc 0.2% ropivacaine was instilled in the pelvis. Pneumoperitoneum was then vented and the laparoscopy ports removed. The laparoscopy port incisions were then closed with 4-0 Monocryl using inverted subcuticular interrupted sutures. Skin glue was applied to the incisions followed by application of appropriate dressings. The patient was then awakened from anesthesia and transferred to the PACU for a period of observation after having tolerated the procedure well. Post-operative Condition: stable Disposition: PACU Plan for aftercare: Routine postoperative care with follow-up planned for 2 weeks after surgery or as needed.
[2025-02-02] MEDS: OXYCODONE IR 5 MG TABLET PO ×3 (12:02→18:05)
[2025-02-02] MEDS: ONDANSETRON 4 MG/2 ML INJ IV (12:04)
[2025-02-02] MEDS: hydrOXYzine 50 MG/ML INJ IM (12:07)
[2025-02-02] MEDS: HYDROMORPHONE 1 MG INJ IV ×2 (12:08→12:33)
[2025-02-02] MEDS: FAMOTIDINE 20 MG/2 ML VIAL IV (12:29)
--- NOTE | 2025-02-02 13:20 | PC.NURSE ---
Day shift: In room from PACU at approx 1300. The 3 lap site dressings are CDI. Does have some right shoulder gas pain. Was able to void when she arrived but stated it was just a little bit. The hat is now in BR to measure voids. Pt asking if she will stay the night here. VS WNL. Oriented to room and call light. Pt with no concerns on admit. Has been calm and cooperative with care.
[2025-02-02] MEDS: ACETAMINOPHEN 325 MG TABLET 650 MG PO (14:08)
[2025-02-02] MEDS: LACTATED RINGERS 1,000 ML 100 ML IV (14:09)
[2025-02-02] MEDS: KETOROLAC 30 MG/ML VIAL IV (16:00)
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
== END 2025-02-02 19:15 | disposition home or self-care (01) ==
LOC: OR 07:49 → AC 12:12
PROVIDERS: PCP Registered Nurse; Referring Provider Obstetrics & Gynecology; Visit Provider Obstetrics & Gynecology
PROC: (CPT 49320; principal; 2025-02-02 09:00)
PROC: (CPT 57530; 2025-02-02 09:00)
DX: N93.9 Abnormal uterine and vaginal bleeding, unspecified (principal); Z90.711 Acquired absence of uterus with remaining cervical stump; N83.12 Corpus luteum cyst of left ovary
CPT/HCPCS: 58662; 57530; J0690; J1100; J1171; J1885; J2250; J2405; J2704; J2795; J3010; J3410; J3490

== ENCOUNTER 2025-02-04 21:17 | Emergency (ER) | payer OTHER, SELFPAY ==
[2025-02-02 15:22] VITALS: BMI 17.0
[2025-02-04] VITALS (8 sets, daily range): BP systolic 98–114; BP diastolic 55–81; PULSE 67–86; RESP 17–23; TEMP 36.7; O2SAT 98–100; BMI 22.3
--- NOTE | 2025-02-04 21:43 | DI.CT.S_ITS ---
PROCEDURE: CT ABDOMEN PELVIS W CON INDICATIONS: Postop laparoscopic and vaginal trachelectomy TECHNIQUE: After the administration of intravenous contrast, axial sections acquired from the lung bases to the pubic symphysis. Coronal and sagittal reformats were performed. For radiation dose reduction, the following was used: automated exposure control, adjustment of mA and/or kV according to patient size. COMPARISON: None. FINDINGS: Image quality: Diagnostic. Lower Chest: No significant findings. ABDOMEN: Liver: No solid mass. Liver is enlarged at 21.5 cm. Linear filling defect in in intrahepatic left portal vein noted on image 2/33. Additionally, the extrahepatic portal vein is dilated at 1.8 cm in diameter Gallbladder: No radiopaque gallstones or wall thickening. Biliary ducts: No biliary dilation. Pancreas: No ductal dilation. Spleen: The spleen is enlarged at 13.9 cm. No intrinsic mass lesion. Adrenal Glands: No adrenal nodules. Kidneys and Ureters: No hydronephrosis. No solid mass. No complex renal cystic lesion which requires follow up. Stomach and Bowel: Normal colonic caliber, without significant wall thickening. Peritoneum: Xihd-ae-iycsurpe free fluid in the pelvis Ventral Wall: No significant ventral hernia. Abdominal Nodes: No retroperitoneal or mesenteric adenopathy by size criteria. Vessels: Aorta and inferior vena cava are normal in size. PELVIS: Pelvic Organs: Unremarkable. Bladder: No bladder wall thickening, accounting for underdistention. Pelvic Nodes: No enlarged lymph nodes. Miscellaneous: No inguinal hernias are seen. Small amount of subcutaneous periumbilical soft tissue air consistent with recent laparoscopic surgery. No abscess. Bones: No aggressive osseous abnormality. IMPRESSION: Hepatosplenomegaly with dilated portal vein consistent with Portal venous hypertension. Nonocclusive left hepatic portal venous thrombosis Daer-gy-uqwzreas free fluid in the pelvis. No free air. Approved by: Maurice Davis M.D. on 02/04/2025 at 21:36
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
[2025-02-04] MEDS: SODIUM CHLORIDE 0.9% 1,000 ML 1000 ML IV (21:51)
[2025-02-04] MEDS: HYDROMORPHONE 1 MG INJ 0.5 MG IV (21:52)
[2025-02-04 22:15] LABS: Add Manual Diff / Slide Review NO; Basophils Absolute Auto 100 /uL (0-100); Basophils Percent Auto 0.9 % (0-2); Eosinophils Absolute Auto 100 /uL (0-450); Hematocrit 26.8 % (36-46); Hemoglobin 9.4 g/dL (12.0-16.0); Lymphocytes Absolute Auto 2800 /uL (1100-4500); Lymphocytes Percent Auto 44.9 % (25-40); Mean Corpuscular Hemoglobin 29.1 PG (26-34); Mean Corpuscular Volume 83.2 fL (80-100); Monocytes Absolute Auto 500 /uL (0-900); Monocytes Percent Auto 7.2 % (3-14); Neutrophils Absolute Auto 2900 /uL (1500-7000); Platelet Count 276 X10^3/uL (150-400); Red Blood Cell Count 3.23 X10^6/uL (4.0-5.2); Red Cell Distribution Width 14.2 % (11.6-14.8); White Blood Cell Count 6.3 X10^3/uL (4.5-11.0)
[2025-02-04 22:20] LABS: INR 1.1 (0.9-1.3); Prothrombin Time 12.3 SECONDS (9.4-12.5)
[2025-02-04 22:22] LABS: Appearance Urine UA CLEAR; Bilirubin Urine UA NEGATIVE (NEGATIVE); Color Urine UA YELLOW; Glucose Urine UA NEGATIVE (Negative); Ketones Urine UA NEGATIVE (NEGATIVE); Leukocyte Esterase Urine UA 2+ (NEGATIVE); Nitrite Urine UA NEGATIVE (Negative); Occult Blood Urine UA 1+ (Negative); Protein Urine UA NEGATIVE (Negative); Specific Gravity Urine UA <=1.005 (1.000-1.035); Urobilinogen Urine UA 0.2 E.U./dL (0.2)
[2025-02-04 22:23] LABS: PTT Partial Thromboplastin Tim 43 SECONDS (25.1-36.5)
[2025-02-04 22:24] LABS: Lactate (Lactic Acid) 1.5 mmol/L (0.7-2.1)
[2025-02-04 22:26] LABS: Alanine Aminotransferase 98 IU/L (<35); Albumin 3.6 g/dL (3.5-5.0); Albumin Globulin Ratio 1.2 (1.0-2.8); Alkaline Phosphatase 118 U/L (38-126); Aspartate Aminotransferase 86 IU/L (14-36); BUN Creatinine Ratio 10.1 (6-22); Bilirubin Total 0.5 mg/dL (0.2-1.3); Blood Urea Nitrogen 7 mg/dL (7-17); Calcium 8.5 mg/dL (8.4-10.2); Carbon Dioxide 24 mmol/L (22-32); Chloride 105 mmol/L (98-107); Creatine Kinase 59 U/L (30-135); Estimated Glomerular Filt Rate > 60 mL/min (>60); Glucose 86 mg/dL (70-99); HEMOLYSIS < 15 (0-50); Lipase 154 U/L (23-300); Magnesium 1.9 mg/dL (1.6-2.3); Potassium 3.6 mmol/L (3.4-5.1); Sodium 135 mmol/L (137-145); Total Protein 6.6 g/dL (6.3-8.2)
[2025-02-04 22:31] LABS: Bacteria Urine Occasional (0-1); Culture Indicated Urine Specimen Cultured; RBC Urine 0-1/HPF (0-5/HPF); Squamous Epithelial Cell Urine 1-5 /HPF (0-5/HPF); Urine Volume 10mL (spun); WBC Urine 1-5/HPF (0-5/HPF); pH Urine UA 6.5 (4.5-8.0)
[2025-02-04 22:37] LABS: Troponin I < 0.012 ng/mL (0.01-0.034)
[2025-02-04 22:41] LABS: Procalcitonin 0.144 ng/mL (<0.5)
[2025-02-04] MEDS: cefTRIAXone 2,000 MG in SODIUM CHLORIDE 0.9% 100 ML 200 MG IV (23:01)
[2025-02-05] MEDS: HYDROMORPHONE 0.5 MG INJ IV (00:06)
== END 2025-02-05 00:14 | disposition home or self-care (01) ==
PROVIDERS: Emergency Provider Student in an Organized Health Care Education/Training Program; PCP Registered Nurse
DX: N39.0 Urinary tract infection, site not specified (principal); I81 Portal vein thrombosis; Z98.890 Other specified postprocedural states
CPT/HCPCS: 36415; 74177; 80053; 81001; 81003; 82550; 83605; 83690; 83735; 84145; 84484; 85025; 85610; 85730; 86850; 86900; 86901; 87040; 87086; 96361; 96365; 96375; 96376; 99284; J0696; J1171; Q9967

== ENCOUNTER 2025-05-02 13:33 | Emergency (ER) | payer OTHER, SELFPAY ==
[2025-02-02 15:22] VITALS: BMI 17.0
[2025-05-02] VITALS (7 sets, daily range): BP systolic 110–121; BP diastolic 64–76; PULSE 64–88; RESP 17–18; TEMP 37; O2SAT 96–100; BMI 20.7
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
--- NOTE | 2025-05-02 13:53 | DI.CT.S_ITS ---
PROCEDURE: CT ANGIO CHEST PE PROTOCOL INDICATIONS: Shortness of breath, history of hepatic thrombus TECHNIQUE: After the administration of intravenous contrast, 2 mm thick sections acquired from the pulmonary apices to the posterior costophrenic angles. 3-dimensional maximum intensity projection (MIP) coronal and sagittal reformats were then acquired through the thorax. For radiation dose reduction, the following was used: automated exposure control, adjustment of mA and/or kV according to patient size. COMPARISON: [facility], CR, XR CHEST 2 VIEWS, 07/13/2023, 14:12. [facility] Ultrasound, US, US THYROID, 09/30/2022, 17:05. FINDINGS: Image quality: Diagnostic. Pulmonary arteries: Pulmonary arteries are normal in size, and demonstrate no intraluminal filling defects to suggest central pulmonary embolism. Lower Neck: No enlarged lymph nodes. Thyroid: Right thyroid 1.3 cm nodule does not appear significantly changed compared to the CT T ultrasound from 09/30/2022. Status post left thyroidectomy. Axillae: No enlarged lymph nodes. Chest Wall: Unremarkable. Bones: Unremarkable. Lungs and Pleura: No pneumothorax or pleural effusions. No consolidation or suspicious nodules. Heart: Heart size is normal. No pericardial effusion. Thoracic Vessels: No aortic aneurysm. Mediastinum and Nicky: No enlarged lymph nodes. Esophagus: No wall thickening. No hiatal hernia. Upper Abdomen: Visualized upper abdomen solid organs and bowel loops appear normal. IMPRESSION: No acute pulmonary embolus. No acute abnormality is seen in the chest. Approved by: Elvis Shore M.D. on 05/02/2025 at 15:04
--- NOTE | 2025-05-02 14:13 | EKG_ITS ---
[address] [address] Test Date: 2025-05-02 Pat Name: Shy Garcia Department: Room: Gender: Female [employer] Project Manager: RHIANNON : 1995 Requested By: Order Number: [id number] Reading MD: Miguel Angel Bucio Measurements Intervals [place] Rate: 70 P: 78 NM: 148 QRS: 76 QRSD: 80 T: 52 QT: 384 QTc: 414 Interpretive Statements Normal sinus rhythm with sinus arrhythmia Electronically Signed On 05-02-2025 17:30:52 PDT by Miguel Angel Bucio
[2025-05-02 14:45] LABS: Add Manual Diff / Slide Review NO; Hematocrit 37.9 % (36-46); Hemoglobin 12.9 g/dL (12.0-16.0); Lymphocytes Absolute Auto 2100 /uL (1100-4500); Mean Corpuscular HGB Conc 34.0 % (30-36); Mean Corpuscular Hemoglobin 27.8 PG (26-34); Mean Corpuscular Volume 81.7 fL (80-100); Platelet Count 317 X10^3/uL (150-400)
[2025-05-02 14:53] LABS: INR 1.1 (0.9-1.3); Prothrombin Time 12.1 SECONDS (9.4-12.5)
[2025-05-02 14:55] LABS: PTT Partial Thromboplastin Tim 29 SECONDS (25.1-36.5)
[2025-05-02 14:59] LABS: Alanine Aminotransferase 20 IU/L (<35); Albumin 4.6 g/dL (3.5-5.0); Albumin Globulin Ratio 1.6 (1.0-2.8); Alkaline Phosphatase 73 U/L (38-126); Blood Urea Nitrogen 9 mg/dL (7-17); Calcium 9.0 mg/dL (8.4-10.2); Carbon Dioxide 22 mmol/L (22-32); Chloride 105 mmol/L (98-107); Creatine Kinase 48 U/L (30-135); Estimated Glomerular Filt Rate > 60 mL/min (>60); Globulin 2.9 g/dL (1.7-4.1); Glucose 136 mg/dL (70-99); HEMOLYSIS < 15 (0-50); Lipase 59 U/L (23-300); Potassium 3.9 mmol/L (3.4-5.1); Sodium 137 mmol/L (137-145); Total Protein 7.5 g/dL (6.3-8.2)
[2025-05-02 15:00] LABS: Magnesium 2.1 mg/dL (1.6-2.3)
[2025-05-02 15:11] LABS: NT-proBNP (BNP-Adult 18+) 49 pg/mL (<125); Troponin I < 0.012 ng/mL (0.01-0.034)
[2025-05-02 15:49] LABS: Coronavirus NL 63 Not Detected (Not Detect); SARS- CoV-2 Not Detected (Not Detecte)
[2025-05-02] MEDS: AZITHROMYCIN 250 MG TABLET 500 MG PO (18:01)
== END 2025-05-02 18:12 | disposition home or self-care (01) ==
PROVIDERS: Emergency Provider Student in an Organized Health Care Education/Training Program; PCP Registered Nurse
DX: J16.0 Chlamydial pneumonia (principal); Z79.01 Long term (current) use of anticoagulants
CPT/HCPCS: 36415; 71275; 80053; 82550; 83690; 83735; 83880; 84484; 85025; 85610; 85730; 87633; 93005; 99283; 99284; Q9967